=== PATIENT | female | born 1935 | race Caucasian/White ===

== ENCOUNTER → 2017-10-30 15:08 | Outpatient (CLI) | payer MEDICARE, OTHER, SELFPAY ==
[2017-10-30 18:18] LABS: Anion Gap 10 (5-15); BUN 16 mg/dL (7-18); BUN/Creat Ratio 14.5 RATIO (10-20); Calcium,Total 9.4 mg/dL (8.5-10.1); Chloride 103 mmol/L (98-107); EST Glomerular Filtration Rate 51 mL/min (>60); Est Glom Filt Rate - Afr Amer 61 mL/min (>60); Free T3 2.4 pg/mL (2.18-3.98); Glucose 152 mg/dL (70-110); Potassium 3.8 mmol/L (3.5-5.1); Sodium Level 138 mmol/L (136-145); T4 Total, Thyroxin 7.1 ug/dL (4.8-13.9)
== END ==
PROVIDERS: Family Provider Family Medicine; PCP Family Medicine; Visit Provider Family Medicine
DX: I10 Essential (primary) hypertension (principal); E03.9 Hypothyroidism, unspecified
CPT/HCPCS: 36415; 80048; 84436; 84443; 84481

== ENCOUNTER → 2018-03-02 10:35 | Outpatient (CLI) | payer MEDICARE, OTHER, SELFPAY ==
[2018-03-02 13:11] LABS: Anion Gap 7 (5-15); BUN 16 mg/dL (7-18); BUN/Creat Ratio 16.1 RATIO (10-20); Calcium,Total 9.4 mg/dL (8.5-10.1); Chloride 105 mmol/L (98-107); Cholesterol 152 mg/dL (200); Creatinine, Serum 0.99 mg/dL (0.55-1.02); EST Glomerular Filtration Rate 57 mL/min (>60); Est Glom Filt Rate - Afr Amer 69 mL/min (>60); Glucose 128 mg/dL (74-106); High Density Lipoprotein 49 mg/dL; Sodium Level 137 mmol/L (136-145); Thyroid Stim Hormone (TSH) 1.56 uIU/mL (0.358-3.74); Triglycerides 195 mg/dL; Very Low Density Lipoprotein 39 mg/dL (5-40)
== END ==
PROVIDERS: Family Provider Family Medicine; PCP Family Medicine; Visit Provider Family Medicine
DX: I10 Essential (primary) hypertension (principal); E03.9 Hypothyroidism, unspecified
CPT/HCPCS: 36415; 80048; 80061; 84443

== ENCOUNTER → 2018-06-26 11:59 | Outpatient (CLI) | payer MEDICARE, OTHER, SELFPAY ==
[2018-06-26 15:21] LABS: International Normalized Ratio 1.8; Prothrombin Time (Protime)PT. 20.7 SECONDS (11.7-14.9)
== END ==
PROVIDERS: Family Provider Family Medicine; PCP Family Medicine; Referring Provider Internal Medicine Cardiovascular Disease; Visit Provider Family Medicine
DX: I48.91 Unspecified atrial fibrillation (principal)
CPT/HCPCS: 36415; 85610

== ENCOUNTER → 2019-07-24 12:55 | Outpatient (CLI) | payer MEDICARE, OTHER, SELFPAY ==
[2019-06-27 08:04] VITALS: BMI 27.3
--- NOTE | 2019-07-24 12:56 | ECHOCS_ITS ---
Version 2 Reason For Study: AFIB Procedure This was a 2D Doppler, Color Flow transthoracic echocardiogram. The study was technically difficult. Contrast injection was performed. Exam performed in department. Left Ventricle Normal LV size. Mild concentric left ventricular hypertrophy. Left ventricular systolic function is normal. The estimated ejection fraction is 65 %. No regional wall motion abnormalities noted. Right Ventricle Normal RV size. Normal systolic function. Atria Normal left atrium. Normal right atrium. Patent foramen ovale. Mitral Valve Normal mitral valve. Tricuspid Valve Normal tricuspid valve. Aortic Valve The aortic valve is not well visualized. Pulmonic Valve Normal pulmonic valve. Great Vessels Normal aortic root. The pulmonary artery is normal size. Normal inferior vena cava. Pericardium/Pleural No pericardial effusion. Medication 22 gauge I.V. with prn adaptor inserted into right arm. Diluted definity 3.0ml given slow IV push to enhance endocardial definition. Performed a rapid injection of agitated mix of 9 cc saline and 1cc air to assess for atrial septal defect. MMode/2D Measurements & Calculations LVIDd: 3.0 cm IVSd: 1.3 cm Ao root diam: 3.3 cm LVIDs: 2.0 cm LVPWd: 1.2 cm RVDd: 2.8 cm FS: 34.2 % LAV(MOD-bp): 38.6 ml LA A4 area: 16.5 cm2 LA dimension(2D): 3.3 cm LAV(MOD-bp) Indexed: 22.0 ml/m2 LAV(MOD-sp2): 31.6 ml LAV(MOD-sp4): 41.8 ml RA A4 area: 15.1 cm2 Time Measurements MV dec time: 0.19 sec Doppler Measurements & Calculations MV E max jaspal: 52.4 cm/sec Lat Peak E' Jaspal: 5.0 cm/sec Med Peak E' Jaspal: 6.5 cm/sec MV A max jaspal: 100.4 cm/sec E/E' lat: 10.4 E/E' med: 8.0 MV E/A: 0.52 Ao V2 max: 119.4 cm/sec LV V1 max: 112.2 cm/sec PA V2 max: 102.2 cm/sec Ao max P.7 mmHg LV V1 max P.0 mmHg TR max jaspal: 261.1 cm/sec TR max P.3 mmHg Interpretation Summary Normal LV size. Mild concentric left ventricular hypertrophy. Left ventricular systolic function is normal. The estimated ejection fraction is 65 %. Patent foramen ovale. Contrast injection was performed. Structurally normal valves. Ordering Physician: Augustin Watkins Referring Physician: AMANDA PARRISH Performed By: Kathy Vail, MIRACLE, RVT
== END ==
PROVIDERS: Family Provider Family Medicine; PCP Family Medicine; Referring Provider Internal Medicine Cardiovascular Disease; Visit Provider Internal Medicine Cardiovascular Disease
DX: I48.0 Paroxysmal atrial fibrillation (principal); I10 Essential (primary) hypertension
CPT/HCPCS: 93306; Q9957; A4216; C8929

== ENCOUNTER → 2019-10-14 14:14 | Outpatient (CLI) | payer MEDICARE, OTHER, SELFPAY ==
[2019-06-27 08:04] VITALS: BMI 27.3
[2019-10-14 16:03] LABS: Anion Gap 7 (5-15); BUN 11 mg/dL (7-18); BUN/Creat Ratio 11.3 RATIO (10-20); Calcium,Total 9.6 mg/dL (8.5-10.1); Chloride 102 mmol/L (98-107); Cholesterol 159 mg/dL (200); Creatinine, Serum 0.97 mg/dL (0.55-1.02); EST Glomerular Filtration Rate 58 mL/min (>60); Est Glom Filt Rate - Afr Amer 70 mL/min (>60); Glucose 108 mg/dL (74-106); High Density Lipoprotein 50 mg/dL; Potassium 4.3 mmol/L (3.5-5.1); Sodium Level 135 mmol/L (136-145); Thyroid Stim Hormone (TSH) 3.38 uIU/mL (0.358-3.74); Triglycerides 168 mg/dL; Very Low Density Lipoprotein 34 mg/dL (5-40)
== END ==
PROVIDERS: Family Provider Family Medicine; PCP Family Medicine; Referring Provider Family Medicine; Visit Provider Family Medicine
DX: E03.9 Hypothyroidism, unspecified (principal); I10 Essential (primary) hypertension
CPT/HCPCS: 36415; 80048; 80061; 84443

== ENCOUNTER 2020-11-13 14:35 | Outpatient (RCR) | payer MEDICARE, OTHER, SELFPAY ==
[2019-06-27 08:04] VITALS: BMI 27.3
== END 2020-11-13 23:59 ==
LOC: IMMUN 14:35
PROVIDERS: PCP Family Medicine; Referring Provider Family Medicine; Visit Provider Family Medicine
DX: Z23 Encounter for immunization (principal)
CPT/HCPCS: 0011A; 0012A

== ENCOUNTER 2021-09-25 14:05 | Emergency (ER) | payer MEDICARE, OTHER, SELFPAY ==
[2021-09-25 14:06] VITALS: BP 150/65; PULSE 69; RESP 15; TEMP 36; O2SAT 97; BMI 25.9
--- NOTE | 2021-09-25 14:43 | EKG12_ITS ---
Test Reason : GENERAL Blood Pressure : / mmHG Vent. Rate : 072 BPM Atrial Rate : 072 BPM P-R Int : 156 ms QRS Dur : 096 ms QT Int : 384 ms P-R-T Axes : 036 003 110 degrees QTc Int : 420 ms Normal sinus rhythm ST & T wave abnormality, consider lateral ischemia Abnormal ECG When compared with ECG of 17-OCT-2011 05:12, T wave inversion now evident in Lateral leads Confirmed by JESENIA ALEXIS, MARIETTA ([id number]), manager editorial ANTONIETTA SCHULZ ([id number]) on 09/28/2021 1:41:53 PM Referred By: EFRAÍN Confirmed By:MARIETTA BA MD
--- NOTE | 2021-09-25 14:49 | EDS_ITS ---
HPI History of Present Illness Chief Complaint: General Illness Informant: patient Narrative Narrative: Patient is an 86-year-old female with history of hypothyroid, hypertension, proximal atrial fibrillation and dementia presenting after an episode of vomiting and near syncope. I spoke with her daughter, [place] was with her what happened. They were sitting down to eat. Patient 's niece reports that she was feeling hot right before she sat down to eat. The niece offered her some water and patient ate majority of her meal. Patient then threw up multiple times no. No report of any black or blood in the vomit. Patient also became limp and had a transient loss of consciousness at the table. Patient did not fall to the ground. No report of any head injury. EMS was called patient was brought to the emergency room. Patient reports that she did not like what she was eating and then threw up but states she feels better now. Patient is a poor historian. She does not recall what she actually ate. Niece does state that a similar episode happened a couple months ago when the patient was visiting her in a senior living. She felt better shortly after and ate and went about her day. [facility] Medical History (Updated 09/25/21 @ 19:[address] Sasha Carbone, DO) Essential (primary) hypertension Fatigue Hyperlipidemia Hypothyroidism Paroxysmal atrial fibrillation Home Medications atorvastatin 10 mg tablet 10 mg PO QDAY 30 Days #30 tab 10/06/17 [History Last Taken Unknown] donepezil 10 mg tablet 10 mg PO DAILY 30 Days #30 10/06/17 [History Last Taken Unknown] imipramine HCl 25 mg tablet 25 mg PO QHS 30 Days #30 tab 10/06/17 [History Last Taken Unknown] levothyroxine 25 mcg tablet 25 mcg PO QDAY 30 Days #30 tab 10/06/17 [History Last Taken Unknown] losartan 100 mg tablet 100 mg PO QDAY 30 Days #30 tab 10/06/17 [History Last Taken Unknown] metoprolol succinate 25 mg tablet,extended release 24 hr 25 mg PO QDAY 30 Days #30 tab 10/06/17 [History Last Taken Unknown] cholecalciferol (vitamin D3) 125 mcg (5,000 unit) capsule 5,000 unit PO .2xweek cap 06/27/19 [History Last Taken Unknown] apixaban 5 mg tablet 2.5 mg PO BID #0 tab 01/14/20 [Rx Last Taken Unknown] Mirtazapine 45 mg PO DAILY 12/04/20 [History Last Taken Unknown] Norvasc 2.5 mg PO DAILY 12/04/20 [History Last Taken Unknown] Allergy/AdvReac Type Severity Reaction Status Date / Time No Known Allergies Allergy Verified 09/25/21 14:09 Family History Brother CAD (coronary artery disease) Myocardial infarction in his 40s Mother Dementia Surgical History History of hysterectomy Social History Smoking Status: Never smoker alcohol intake: never substance use type: does not use caffeine: Yes Type: tea what type of physical activity do you participate in: none seatbelt use: always do you feel safe at home: Yes ROS ROS ED Constitutional Constitutional ED: Reports sweats and other Details: lightheaded ; Denies c hills or fever(s) Eyes Eyes: Denies change in vision ENT ENT ED: Denies ear pain Cardiovascular Cardiovascular: Denies chest pain or palpitations Respiratory/Chest Respiratory/Chest: Denies cough or dyspnea Gastrointestinal Gastrointestinal: Reports vomiting; Denies abdominal pain Genitourinary Genitourinary ED: Denies dysuria or hematuria Musculoskeletal Musculoskeletal: Denies arthralgias or myalgias Integumentary Denies rash Neurologic Neurologic: Denies headache(s), paresthesias or weakness Psychiatric Psychiatric: Denies depression EXAM Physical Exam Const Vital Signs: 09/25/21 14:06 09/25/21 17:08 09/25/21 17:09 Temperature 96.8 F L Temperature Source Temporal Pulse Rate 69 89 Respiratory Rate 15 18 Respiratory Pattern Normal Blood Pressure 150/65 H Blood Pressure Mean 93 Pulse Ox 97 99 Oxygen Delivery Method Room Air Room Air 09/25/21 19:37 Temperature Temperature Source Pulse Rate 69 Respiratory Rate 15 Respiratory Pattern Blood Pressure 138/74 H Blood Pressure Mean Pulse Ox 95 Oxygen Delivery Method Positive well nourished and well developed General Appearance ED: well developed HEENT Reports TM's clear and moist mucous membranes Negative for trauma Tympanic Membrane ED: Yes TM's clear Eyes PERRL and EOMs intact bilaterally Neck supple and no JVD General: Negative for tenderness Chest Wall inspection of chest normal Resp normal respiratory effort and clear to auscultation bilaterally Cardio regular rate, regular rhythm and no murmurs GI normal to inspection, nondistended, normoactive bowel sounds and non-tender Palpation: soft Extremity normal to inspection General Extremety ED: Negative for edema or tenderness General Extremity: Negative for edema Neuro no sensory deficits noted Sensorium / Orientation: alert Motor Exam: Negative for general weakness Psych mental status grossly normal Skin no rashes or lesions noted and no wounds MDM MDM MDM Narrative Medical decision making narrative: Patient evaluated after an episode of vomiting and what sounds like syncope versus near syncope. Patient currently is asymptomatic. She is hemodynamically stable. She has no further nausea and vomiting. She is able to drink in the emergency room without difficulty. Work- up including CBC, CMP, high-sensitivity opponent x2 and urinalysis largely n egative. Head CT obtained which did not show an acute process. Patient's abdomen is soft and nontender. I do not think a CT is indicated at this time. Patient is monitored in the ER for couple hours and continues to be asymptomatic. I am not sure what caused this episode earlier today however I do think she is stable for outpatient follow-up. No signs of ACS or more severe disease process at this time. No focal neurologic deficits to make me suspect a stroke as a cause her symptoms. This does not sound like seizure activity. Case is discussed with her son as well as her granddaughter. Lab Data Attestation: I reviewed the patient's lab results. Labs: Laboratory Results - last 24 hr 09/25/21 09/25/21 09/25/21 14:50 14:50 17:48 WBC 8.1 RBC 4.98 Hgb 14.0 Hct 41.7 MCV 83.7 MCH 28.1 MCHC 33.6 RDW Std Deviation 40.1 RDW Coeff of Rony 13.2 Plt Count 204 MPV 9.3 Immature Gran % (Auto) 0.600 Neut % (Auto) 70.9 H Lymph % (Auto) 23.3 [place] % (Auto) 3.8 Eos % (Auto) 1.0 Baso % (Auto) 0.4 Absolute Neuts (auto) 5.8 Absolute Lymphs (auto) 1.90 Nucleated RBC % 0 Sodium 139 Potassium 3.5 Chloride 105 Carbon Dioxide 27.0 Anion Gap 7 BUN 12 Creatinine 1.07 H Estim Creat Clear Calc 33.80 Est GFR (MDRD) Af Amer 63 Est GFR (MDRD) Non-Af 52 L BUN/Creatinine Ratio 11.2 Glucose 161 H Calcium 9.6 Total Bilirubin 0.40 AST 12 L ALT 19 Alkaline Phosphatase 104 Troponin I High Sens 6 7 Total Protein 6.7 Albumin 3.2 Globulin 3.5 Albumin/Globulin Ratio 0.9 Lipase 74 Urine Color Urine Clarity Urine pH Ur Specific [place] Urine Protein Urine Glucose (UA) Urine Ketones Urine Occult Blood Urine Nitrite Urine Bilirubin Urine Urobilinogen Ur Leukocyte Esterase Urine RBC Urine WBC Ur Squamous Epith Cells Urine Bacteria Urine Mucus 09/25/21 18:34 WBC RBC Hgb Hct MCV MCH MCHC RDW Std Deviation RDW Coeff of Rony Plt Count MPV Immature Gran % (Auto) Neut % (Auto) Lymph % (Auto) [place] % (Auto) Eos % (Auto) Baso % (Auto) Absolute Neuts (auto) Absolute Lymphs (auto) Nucleated RBC % Sodium Potassium Chloride Carbon Dioxide Anion Gap BUN Creatinine Estim Creat Clear Calc Est GFR (MDRD) Af Amer Est GFR (MDRD) Non-Af BUN/Creatinine Ratio Glucose Calcium Total Bilirubin AST ALT Alkaline Phosphatase Troponin I High Sens Total Protein Albumin Globulin Albumin/Globulin Ratio Lipase Urine Color Yellow Urine Clarity Clear Urine pH 7.0 Ur Specific [place] 1.010 Urine Protein 15 H Urine Glucose (UA) 50 H Urine Ketones Negative Urine Occult Blood 10 H Urine Nitrite Negative Urine Bilirubin Negative Urine Urobilinogen Normal Ur Leukocyte Esterase Negative Urine RBC 0 SEEN Urine WBC 0 SEEN Ur Squamous Epith Cells 0 SEEN Urine Bacteria 0 SEEN Urine Mucus 0 SEEN Radiography Diagnostic Testing: Clinical Impression(s) from Imaging Studies Brain CT 09/25/21 14:56 IMPRESSION: Chronic involutional changes of the brain. Electronically Signed: Kendal Ellison MD at 15:37 EST Tel , Service support , Rhythm Strip Rhythm Strip: Sinus Rhythm Rate: 72 Ectopy: None EKG Initial EKG: Attestation: I personally reviewed and interpreted this EKG as follows: Interpretation: Sinus Rhythm Comments: Normal sinus rhythm at a rate of 72 Normal axis Normal intervals T wave inversion in 1, aVL and V5 No reciprocal changes Discharge Plan Triage Chief Complaint: General Illness ED Provider: Sasha Carbone Dx/Rx/DC Orders Clinical Impression: Vomiting, Near syncope Instructions: ED Fainting, Uncertain Cause, ED Vomiting (Adult) Prescriptions: No Action levothyroxine 25 mcg tablet 25 mcg PO QDAY 30 Days Qty: 30 RF: 0 losartan 100 mg tablet 100 mg PO QDAY 30 Days Qty: 30 RF: 0 metoprolol succinate 25 mg tablet extended release 24 hr 25 mg PO QDAY 30 Days Qty: 30 RF: 0 atorvastatin 10 mg tablet 10 mg PO QDAY 30 Days Qty: 30 RF: 0 imipramine HCl 25 mg tablet 25 mg PO QHS 30 Days Qty: 30 RF: 0 donepezil 10 mg tablet 10 mg PO DAILY 30 Days Qty: 30 RF: 0 cholecalciferol (vitamin D3) 5,000 unit capsule 5,000 unit PO .2xweek RF: 0 Mirtazapine 45 mg PO DAILY RF: 0 Norvasc 2.5 mg PO DAILY RF: 0 Eliquis 5 mg tablet 2.5 mg PO BID Qty: 0 RF: 0 Primary Care Provider: Rom Burns Referrals: Rom Burns MD [Primary Care Provider] - Activity Restrictions/Additional Instructions: Your work-up today including blood work, head CT and EKG were all normal. There is no signs of any type of infection. I am not sure what caused this episode today but I do think you are safe to go home. Disposition Disposition: Home, Self Care Discharge Date/Time: 09/25/21 19:56
--- NOTE | 2021-09-25 14:56 | CT_ITS ---
STUDY: CT BRAIN WITHOUT CONTRAST REASON FOR EXAM: Female, 86 years old. syncope, AMS RADIATION DOSAGE (If Supplied By Facility): CTDIvol = ( 44.99 ) mGy, DLP = ( ) mGycm TECHNIQUE: Transaxial CT imaging of the brain was performed without administration of intravenous contrast material. Individualized dose optimization techniques were used for this CT. COMPARISON: None. FINDINGS: There is cerebral atrophy with widening of the extra-axial spaces and ventricular dilatation. There are areas of decreased attenuation within the white matter tracts of the supratentorial brain, consistent with microvascular disease changes. There is no intracranial hemorrhage. There are no findings of an acute ischemic infarction. Normal soft tissue structures. Normal visualized paranasal sinuses. CT/Brain/Head without Contrast IMPRESSION: Chronic involutional changes of the brain. Electronically Signed: Kendal Ellison MD at 15:37 EST Tel , Service support ,
[2021-09-25 15:00] LABS: Absolute Neutrophil Count 5.8 X10^3/uL (2.0-7.7); Basophil# 0.03 X10^3/uL; Basophil% 0.4 % (0-1); Eosinophil# 0.08 X10^3/uL; Hematocrit 41.7 % (37-47); Lymphocyte % 23.3 % (19-41); Mean Corp Hgb Conc 33.6 g/dL (32-36); Mean Corpuscular Hgb 28.1 pg (27.0-32.0); Mean Corpuscular Volume 83.7 fL (81-99); Mean Platelet Vol. 9.3 fl (6.2-12.0); Monocyte# 0.31 X10^3/uL; Monocyte% 3.8 % (0-10); NRBC Flagged by Analyzer 0 % (0-5); Neutrophil # 5.77 X10^3/uL (2.7-7.7); Neutrophil % 70.9 % (47-70); Platelet Count 204 K/mm3 (150-450); RBC Distribution Width CV 13.2 % (11.6-14.6); RBC Distribution Width SD 40.1 fl (35.1-43.9); Red Blood Count 4.98 M/mm3 (4.2-5.4); White Blood Count 8.1 K/mm3 (4.4-11.0)
[2021-09-25 15:13] LABS: ALB/GLOB Ratio 0.9 RATIO (0.9-2.4); AST(SGOT) 12 U/L (15-37); Alanine Aminotransfer ALT/SGPT 19 U/L (13-56); Albumin, Serum 3.2 g/dL (3.2-5.0); Alkaline Phosphatase 104 U/L (45-117); Anion Gap 7 (5-15); BUN 12 mg/dL (7-18); BUN/Creat Ratio 11.2 RATIO (10-20); Calcium,Total 9.6 mg/dL (8.5-10.1); Chloride 105 mmol/L (98-107); Creatinine, Serum 1.07 mg/dL (0.55-1.02); EST Glomerular Filtration Rate 52 mL/min (>60); Est Glom Filt Rate - Afr Amer 63 mL/min (>60); Globulin 3.5 g/dL (2.2-4.2); Glucose 161 mg/dL (74-106); Lipase 74 U/L (73-393); Potassium 3.5 mmol/L (3.5-5.1); Protein, Total 6.7 g/dL (6.4-8.2); Sodium Level 139 mmol/L (136-145); Troponin-I HS 6 pg/mL (3.0-54.0)
[2021-09-25 17:08] VITALS: PULSE 89; RESP 18; O2SAT 99
--- NOTE | 2021-09-25 17:49 | ED.RN ---
. Kenya would like to be called if patient needs a ride home.
[2021-09-25 18:30] LABS: Troponin-I HS 7 pg/mL (3.0-54.0)
[2021-09-25 18:42] LABS: Bacteria 0 SEEN /hpf (None Seen); Mucous, Urine 0 SEEN /hpf (<or=2+); Red Blood Cells-Urine 0 SEEN /hpf (0-5); Squamous Epithelial Cells - UA 0 SEEN /hpf (5-10); White Blood Cells 0 SEEN /hpf (0-5)
[2021-09-25 18:44] LABS: Color, Urine Yellow (Yellow); Glucose, Dipstick 50 mg/dl (Normal); Ketone-Dipstick Negative (Negative); Leukocyte Esterase-Dipstick Negative /ul (Negative); Nitrite-Dipstick Negative (Negative); Occult Blood-Urine 10 /ul (Negative); Protein-Dipstick 15 mg/dl (Negative); Urine Bilirubin Dipstick Negative (Negative); Urine Clarity Clear (Clear); Urine Urobilinogen Normal (Normal)
--- NOTE | 2021-09-25 19:30 | ED.RN ---
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 Kenya has been informed about Vasavagal manuvers. [place] states she will be here in 30 minutes
[2021-09-25 19:37] VITALS: BP 138/74; PULSE 69; RESP 15; O2SAT 95
== END 2021-09-25 19:56 | disposition home or self-care (01) ==
PROVIDERS: Emergency Provider Emergency Medicine; PCP Family Medicine
DX: R55 Syncope and collapse (principal); R11.2 Nausea with vomiting, unspecified; I10 Essential (primary) hypertension; E03.9 Hypothyroidism, unspecified; E78.5 Hyperlipidemia, unspecified; I48.0 Paroxysmal atrial fibrillation; F03.90 Unspecified dementia, unspecified severity, without behavioral disturbance, psychotic disturbance, mood disturbance, and anxiety; Z79.01 Long term (current) use of anticoagulants; Z79.899 Other long term (current) drug therapy
CPT/HCPCS: 70450; 80053; 81001; 83690; 84484; 85025; 93005; 99285; J7040; A4216

== ENCOUNTER 2021-10-01 21:46 | Inpatient (IN) | payer MEDICARE, OTHER, SELFPAY ==
[2021-10-01 21:47] VITALS: BP 146/59; PULSE 79; RESP 14; TEMP 37.9; O2SAT 88; BMI 24.2
[2021-10-01 21:55] VITALS: RESP 17; O2SAT 93
--- NOTE | 2021-10-01 22:07 | RAD_ITS ---
HISTORY: fall EXAMINATION/TECHNIQUE: XR Knee 1 or 2 Views: AP and lateral views left knee COMPARISON: None FINDINGS: SOFT TISSUES: No significant soft tissue swelling. Vascular calcifications noted. BONES/JOINTS: No acute fracture or subluxation. Normal alignment. Preservation of the joint spaces. No suspicious osseous lesion. RAD/Knee 1 or 2 Views IMPRESSION: Negative left knee. at 0004 Reported and signed by: Edmund Porras MD Electronically Signed: Edmund Porras MD at 0:03 EST Tel , Service support ,
--- NOTE | 2021-10-01 22:07 | EKG12_ITS ---
Test Reason : FALL Blood Pressure : / mmHG Vent. Rate : 079 BPM Atrial Rate : 079 BPM P-R Int : 148 ms QRS Dur : 080 ms QT Int : 356 ms P-R-T Axes : 046 012 127 degrees QTc Int : 408 ms Normal sinus rhythm ST & T wave abnormality, consider lateral ischemia Abnormal ECG Confirmed by TAMY ALEXIS, AMANDA ([id number]), supervising film or videotape editor JESSICA JJ ([id number]) on 10/06/2021 9:59:08 AM Referred By: ALEXANDRE Confirmed By:AMANDA MORELOS MD
--- NOTE | 2021-10-01 22:07 | CT_ITS ---
HISTORY: fall TECHNIQUE: Helically acquired images were obtained of the cervical spine. 2-D reformatted images were reviewed. A radiation dose optimization technique was used for the scan. # of images incl. paperwork: [id number]. IV contrast dosage and agent: None. COMPARISON: Concurrent head CT. FINDINGS: No acute fracture, traumatic subluxation or prevertebral soft tissue swelling. Mild chronic-appearing grade 1 anterolisthesis of C7 over T1. Mild chronic T2 superior endplate compression deformity. Multilevel degenerative disc space narrowing and endplate osteophytes and facet arthropathy. Secondary [id number] spinal canal stenosis with bilateral neural foraminal stenosis of varying severity. No acute findings within the imaged lung apices. Ovoid, slightly decreased attenuation 2.3 cm masslike structure along lateral margin left lobe of thyroid gland. Smaller 9 mm low-attenuation lesion and separate punctate calcification within right lobe of thyroid gland. CT/Spine Cervical without Contras IMPRESSION: 1. Cervical spondylosis with no evidence of acute osseous injury. 2. Thyroid mass and nodule. Recommend nonemergent follow-up thyroid ultrasound if no previous workup performed. Individualized dose optimization techniques were used for this CT. at 2345 Reported and signed by: Edmund Porras MD Electronically Signed: Edmund Porras MD at 23:44 EST Tel , Service support ,
--- NOTE | 2021-10-01 22:07 | RAD_ITS ---
HISTORY: fall EXAMINATION/TECHNIQUE: XR Hip Unilateral with Pelvis when performed; 2-3 Views: AP view pelvis with AP and lateral views of the left hip COMPARISON: None FINDINGS: PELVIC BONES: No displaced fracture or suspicious osseous lesion demonstrated. Note that overlapping bowel shadows may however obscure fine detail. Sacroiliac joints are unremarkable. No widening of the pubic symphisis. HIPS: Transcervical left femoral neck fracture with slight cephalad migration of the distal fracture fragment. Normal alignment of left femoral head within the acetabular fossa. Bilateral hip joint spaces are preserved. Intact right hip. SOFT TISSUES: Vascular calcifications noted. RAD/HIP, UNI W/ Pelvis 2-3 Views IMPRESSION: Partially displaced left femoral neck fracture. at 0007 Reported and signed by: Edmund Porras MD Electronically Signed: Edmund Porras MD at 0:06 EST Tel , Service support ,
--- NOTE | 2021-10-01 22:07 | CT_ITS ---
HISTORY: injury EXAMINATION: CT Head or Brain W/O Contrast Injection TECHNIQUE: Multiple axial images were obtained of the brain without intravenous contrast. A radiation dose optimization technique was used for this scan. IV Contrast dosage and agent: None. COMPARISON: Head CT from 09/25/21 FINDINGS: BRAIN PARENCHYMA: No intra- or extra-axial hemorrhage. No evidence of acute major territorial infarct. No intracranial mass effect or midline shift. There is mild, chronic hypoattenuation of the deep cerebral white matter. Chronic cerebral involutional changes are also noted. CSF SPACES: Stable small 5 mm dural based crescentic focus of increased attenuation within superolateral right posterior fossa (series 2 axial image 13), likely representing small meningioma. Prominent cerebral sulci secondary to involutional changes. No hydrocephalus. Basal cisterns are patent. CALVARIUM, SKULL BASE, PARANASAL SINUSES AND MASTOID AIR CELLS: Left supraorbital scalp swelling. Intact calvarium. Mild sinus mucosal thickening. Mastoid air cells are well pneumatized. ORBITS: No acute findings. CT/Brain/Head without Contrast IMPRESSION: Left supraorbital scalp swelling with no calvarial fracture or acute intracranial abnormality. Chronic involutional and white matter changes. Stable appearance of probable small meningioma within superolateral right posterior fossa. Individualized dose optimization techniques were used for this CT. at 2341 Reported and signed by: Edmund Porras MD Electronically Signed: Edmund Porras MD at 23:40 EST Tel , Service support ,
--- NOTE | 2021-10-01 22:10 | EDS_ITS ---
HPI History of Present Illness Chief Complaint: Fall Informant: patient Narrative Narrative: Patient brought in by EMS after reported unwitnessed fall. Patient reportedly has a history of dementia and is not able to provide much history. She denies complaint at this time. She tells me she lives with her grandson. It is noted that she was seen here last weekend after a syncopal episode. Work- up at that time was unremarkable. Nurse spoke with the patient's granddaughter on the phone. Patient lives with her granddaughter. Granddaughter will not be coming up to the hospital because she tested positive for Covid today. Granddaughter was downstairs and heard a boom. She went upstairs to find her grandmother laying on her left side on the floor. She states that the hematoma on the forehead is from a syncopal episode with fall on . Patient did reportedly have both doses of her Covid vaccine. [facility] Medical History (Updated 10/02/21 @ 00:[address] Lanny Ricks MD) Dementia Essential (primary) hypertension Fatigue Hyperlipidemia Hypothyroidism Paroxysmal atrial fibrillation Home Medications atorvastatin 10 mg tablet 10 mg PO QDAY 30 Days #30 tab 10/06/17 [History Last Taken Unknown] donepezil 10 mg tablet 10 mg PO DAILY 30 Days #30 10/06/17 [History Last Taken Unknown] imipramine HCl 25 mg tablet 25 mg PO QHS 30 Days #30 tab 10/06/17 [History Last Taken Unknown] levothyroxine 25 mcg tablet 25 mcg PO QDAY 30 Days #30 tab 10/06/17 [History Last Taken Unknown] losartan 100 mg tablet 100 mg PO QDAY 30 Days #30 tab 10/06/17 [History Last Taken Unknown] metoprolol succinate 25 mg tablet,extended release 24 hr 25 mg PO QDAY 30 Days #30 tab 10/06/17 [History Last Taken Unknown] cholecalciferol (vitamin D3) 125 mcg (5,000 unit) capsule 5,000 unit PO .2xweek cap 06/27/19 [History Last Taken Unknown] apixaban 5 mg tablet 2.5 mg PO BID #0 tab 01/14/20 [Rx Last Taken Unknown] Mirtazapine 45 mg PO DAILY 12/04/20 [History Last Taken Unknown] amlodipine 5 mg PO/SL DAILY 10/01/21 [History Last Taken Unknown] Allergy/AdvReac Type Severity Reaction Status Date / Time No Known Allergies Allergy Verified 09/25/21 14:09 Family History Brother CAD (coronary artery disease) Myocardial infarction in his 40s Mother Dementia Surgical History History of hysterectomy Social History Smoking Status: Never smoker alcohol intake: never substance use type: does not use caffeine: Yes Type: tea what type of physical activity do you participate in: none seatbelt use: always do you feel safe at home: Yes ROS ROS ED Constitutional Constitutional ED: Denies chills or fever(s) Eyes Eyes: Denies change in vision ENT ENT ED: Denies sore throat Cardiovascular Cardiovascular: Denies chest pain or palpitations Respiratory/Chest Respiratory/Chest: Denies cough or dyspnea Gastrointestinal Gastrointestinal: Denies abdominal pain, nausea or vomiting Genitourinary Genitourinary ED: Denies dysuria Musculoskeletal Musculoskeletal: Reports arthralgias; Denies neck pain Neurologic Neurologic: Reports weakness Allergic/Immunologic Allergic/Immunologic ED: Denies urticaria EXAM Physical Exam Const Vital Signs: 10/01/21 21:47 10/01/21 21:55 10/01/21 22:01 Temperature 100.2 F H Temperature Source Oral Pulse Rate 79 Respiratory Rate 14 17 Respiratory Effort Normal Respiratory Depth Normal Respiratory Pattern Normal Blood Pressure 146/59 H Blood Pressure Mean 88 Pulse Ox 88 93 Oxygen Delivery Method Room Air Nasal Cannula Oxygen Flow Rate (L/min) 2 10/01/21 23:48 Temperature Temperature Source Pulse Rate 76 Respiratory Rate 18 Respiratory Effort Respiratory Depth Respiratory Pattern Blood Pressure 141/58 H Blood Pressure Mean 85 Pulse Ox 97 Oxygen Delivery Method Nasal Cannula Oxygen Flow Rate (L/min) 2 Positive well nourished and well developed General Appearance ED: well developed HEENT Reports moist mucous membranes HEENT Narrative: Hematoma left forehead Eyes Eyes Narrative: Mild green eye discharge noted dried in her lashes. Neck supple Chest Wall inspection of chest normal and palpation of chest normal Resp normal respiratory effort and clear to auscultation bilaterally Cardio regular rate and regular rhythm GI non-tender Palpation: soft Extremity normal to inspection Extremity Narrative: Mild tenderness to the left knee. No significant edema or deformity. Neuro Neuro Narrative: No focal neurologic deficits. Follows commands. Sensorium / Orientation: alert Skin Skin Narrative: Forehead hematoma as noted above. MDM MDM MDM Narrative Medical decision making narrative: Patient was running a temperature of 100.2 and her O2 sat was 88% on room air. She is currently on 2 L nasal cannula. Rapid Covid test, chest x-ray, lab work, urinalysis obtained. CT scan of the brain and C-spine obtained. Pelvis x-ray left knee x-ray obtained. Lab Data Attestation: I reviewed the patient's lab results. Labs: Laboratory Results - last 24 hr 10/01/21 10/01/21 10/01/21 22:31 22:31 22:31 WBC 15.8 H RBC 4.73 Hgb 13.2 Hct 40.0 MCV 84.6 MCH 27.9 MCHC 33.0 RDW Std Deviation 40.3 RDW Coeff of Rony 13.1 Plt Count 245 MPV 9.9 Immature Gran % (Auto) 0.800 Neut % (Auto) 85.0 H Lymph % (Auto) 7.8 L [place] % (Auto) 6.1 Eos % (Auto) 0.0 Baso % (Auto) 0.3 Absolute Neuts (auto) 13.5 H Absolute Lymphs (auto) 1.24 Nucleated RBC % 0 PT 17.3 H INR 1.5 APTT 37.8 H Sodium 135 L Potassium 3.5 Chloride 100 Carbon Dioxide 26.0 Anion Gap 9 BUN 20 H Creatinine 1.28 H Estim Creat Clear Calc 28.25 Est GFR (MDRD) Af Amer 51 L Est GFR (MDRD) Non-Af 42 L BUN/Creatinine Ratio 15.6 Glucose 132 H Calcium 9.9 Urine Color Urine Clarity Urine pH Ur Specific [place] Urine Protein Urine Glucose (UA) Urine Ketones Urine Occult Blood Urine Nitrite Urine Bilirubin Urine Urobilinogen Ur Leukocyte Esterase Urine RBC Urine WBC Ur Squamous Epith Cells Urine Bacteria Urine Mucus 10/01/21 22:53 WBC RBC Hgb Hct MCV MCH MCHC RDW Std Deviation RDW Coeff of Rony Plt Count MPV Immature Gran % (Auto) Neut % (Auto) Lymph % (Auto) [place] % (Auto) Eos % (Auto) Baso % (Auto) Absolute Neuts (auto) Absolute Lymphs (auto) Nucleated RBC % PT INR APTT Sodium Potassium Chloride Carbon Dioxide Anion Gap BUN Creatinine Estim Creat Clear Calc Est GFR (MDRD) Af Amer Est GFR (MDRD) Non-Af BUN/Creatinine Ratio Glucose Calcium Urine Color Yellow Urine Clarity Sl Cldy Urine pH 6.5 Ur Specific [place] 1.015 Urine Protein 30 H Urine Glucose (UA) Normal Urine Ketones Negative Urine Occult Blood 150 H Urine Nitrite Negative Urine Bilirubin Negative Urine Urobilinogen 1 H Ur Leukocyte Esterase 25 H Urine RBC 0 SEEN Urine WBC 5-10 SEEN Ur Squamous Epith Cells 0 SEEN Urine Bacteria 3+ Urine Mucus 0 SEEN Radiography Chest X-Ray - ED: 1 View, Read by ED Physician and Chronic Changes Diagnostic Testing: Clinical Impression(s) from Imaging Studies Brain CT 10/01/21 22:07 IMPRESSION: Left supraorbital scalp swelling with no calvarial fracture or acute intracranial abnormality. Chronic involutional and white matter changes. Stable appearance of probable small meningioma within superolateral right posterior fossa. Individualized dose optimization techniques were used for this CT. at 2341 Reported and signed by: Edmund Porras MD Electronically Signed: Edmund Porras MD at 23:40 EST Tel , Service support , Cervical Spine CT 10/01/21 22:07 IMPRESSION: 1. Cervical spondylosis with no evidence of acute osseous injury. 2. Thyroid mass and nodule. Recommend nonemergent follow-up thyroid ultrasound if no previous workup performed. Individualized dose optimization techniques were used for this CT. at 2345 Reported and signed by: Edmund Porras MD Electronically Signed: Edmund Porras MD at 23:44 EST Tel , Service support , Hip/Pelvis X-Ray 10/01/21 22:07 IMPRESSION: Partially displaced left femoral neck fracture. at 0007 Reported and signed by: Edmund Porras MD Electronically Signed: Edmund Porras MD at 0:06 EST Tel , Service support , Knee X-Ray 10/01/21 22:07 IMPRESSION: Negative left knee. at 0004 Reported and signed by: Edmund Porras MD Electronically Signed: Edmund Porras MD at 0:03 EST Tel , Service support , Chest X-Ray 10/01/21 23:30 IMPRESSION: No radiographic evidence of acute cardiopulmonary disease. at 0003 Reported and signed by: Edmund Porras MD Electronically Signed: Edmund Porras MD at 0:02 EST Tel , Service support , EKG Initial EKG: Attestation: I personally reviewed and interpreted this EKG as follows: Interpretation: Sinus Rhythm (Sinus at 79. Nonspecific lateral T wave flattening.) Treatment and Re-Evaluation Comments:: Chest x-ray unremarkable per my interpretation. Pelvis x-ray revealed left femoral neck fracture and therefore hip x-ray added. Knee x-ray reveals no fracture. CT scan of the head and C-spine are unremarkable. Lab work significant for an elevated white count at 15.8. Urinalysis does appear to be infected with 3+ bacteria and 5-10 white cells. Urine culture is sent and patient given a dose of IV Rocephin. Rapid Covid test is negative. Because the patient did have known exposure to Covid in her house a Covid PCR was also sent. I will speak with hospitalist as well as orthopedics for admission. Discharge Plan Triage Chief Complaint: Fall ED Provider: Lanny Ricks Dx/Rx/DC Orders Clinical Impression: Fracture of left hip, UTI (urinary tract infection) Prescriptions: No Action levothyroxine 25 mcg tablet 25 mcg PO QDAY 30 Days Qty: 30 RF: 0 losartan 100 mg tablet 100 mg PO QDAY 30 Days Qty: 30 RF: 0 metoprolol succinate 25 mg tablet extended release 24 hr 25 mg PO QDAY 30 Days Qty: 30 RF: 0 atorvastatin 10 mg tablet 10 mg PO QDAY 30 Days Qty: 30 RF: 0 imipramine HCl 25 mg tablet 25 mg PO QHS 30 Days Qty: 30 RF: 0 donepezil 10 mg tablet 10 mg PO DAILY 30 Days Qty: 30 RF: 0 cholecalciferol (vitamin D3) 5,000 unit capsule 5,000 unit PO .2xweek RF: 0 Mirtazapine 45 mg PO DAILY RF: 0 amlodipine 5 mg PO/SL DAILY RF: 0 Eliquis 5 mg tablet 2.5 mg PO BID Qty: 0 RF: 0 Primary Care Provider: Rom Burns Referrals: oRm Burns MD [Primary Care Provider] - Disposition Disposition: Acute Care Hospital [facility]
--- NOTE | 2021-10-01 22:13 | ED.RN ---
This RN called Patients granddaughter Romi [phone]. Romi lives with patient. Romi states that she was downstairs when she heard a loud boom. Romi ran upstairs and found patient lying on her left side on the floor. it did not look like she tripped over anything. There were no rugs or anything around her. patients medication list has been updated during this phone call. patient has had both vaccines but has yet to get booster. Romi tested positive for covid today. Romi has been informed to call ED if she has any further questions at this time.
[2021-10-01 22:48] LABS: Absolute Lymphocyte Count 1.24 X10^3/uL (0.83-4.51); Absolute Neutrophil Count 13.5 X10^3/uL (2.0-7.7); Basophil# 0.04 X10^3/uL; Basophil% 0.3 % (0-1); Hemoglobin 13.2 g/dL (12.0-15.0); Lymphocyte # 1.24 X10^3/ul (0.83-4.51); Lymphocyte % 7.8 % (19-41); Mean Corpuscular Hgb 27.9 pg (27.0-32.0); Mean Corpuscular Volume 84.6 fL (81-99); Mean Platelet Vol. 9.9 fl (6.2-12.0); Monocyte# 0.96 X10^3/uL; Monocyte% 6.1 % (0-10); NRBC Flagged by Analyzer 0 % (0-5); Neutrophil # 13.45 X10^3/uL (2.7-7.7); Platelet Count 245 K/mm3 (150-450); RBC Distribution Width CV 13.1 % (11.6-14.6); RBC Distribution Width SD 40.3 fl (35.1-43.9); Red Blood Count 4.73 M/mm3 (4.2-5.4); White Blood Count 15.8 K/mm3 (4.4-11.0)
[2021-10-01 22:54] LABS: International Normalized Ratio 1.5; Prothrombin Time (Protime)PT. 17.3 SECONDS (11.7-14.9)
[2021-10-01 22:55] LABS: Partial Thromboplast Time 37.8 Seconds (24.1-36.2)
[2021-10-01 23:02] LABS: Anion Gap 9 (5-15); BUN 20 mg/dL (7-18); BUN/Creat Ratio 15.6 RATIO (10-20); Calcium,Total 9.9 mg/dL (8.5-10.1); Chloride 100 mmol/L (98-107); Creatinine, Serum 1.28 mg/dL (0.55-1.02); EST Glomerular Filtration Rate 42 mL/min (>60); Est Glom Filt Rate - Afr Amer 51 mL/min (>60); Estimated Creatinine Clearance 28.25 ml/min; Glucose 132 mg/dL (74-106); Potassium 3.5 mmol/L (3.5-5.1); Sodium Level 135 mmol/L (136-145)
[2021-10-01 23:09] LABS: Mucous, Urine 0 SEEN /hpf (<or=2+); Red Blood Cells-Urine 0 SEEN /hpf (0-5); Squamous Epithelial Cells - UA 0 SEEN /hpf (5-10)
[2021-10-01 23:14] LABS: Glucose, Dipstick Normal (Normal); Ketone-Dipstick Negative (Negative); Leukocyte Esterase-Dipstick 25 /ul (Negative); Nitrite-Dipstick Negative (Negative); Occult Blood-Urine 150 /ul (Negative); Protein-Dipstick 30 mg/dl (Negative); Specific Gravity, Urine 1.015 (1.002-1.030); Urine Bilirubin Dipstick Negative (Negative); Urine Urobilinogen 1 mg/dl (Normal); Urine pH 6.5 (5.0 - 8.0)
[2021-10-01 23:23] LABS: Bacteria 3+ /hpf (None Seen); Color, Urine Yellow (Yellow); Urine Clarity Sl Cldy (Clear); White Blood Cells 5-10 SEEN /hpf (0-5)
--- NOTE | 2021-10-01 23:30 | RAD_ITS ---
HISTORY: fever, fall EXAMINATION/TECHNIQUE: XR Chest 1 View COMPARISON: None FINDINGS: LINES/DEVICES: panel monitor leads. LUNGS: No overt pulmonary edema. No focal airspace consolidation. No sizable pleural effusion. No pneumothorax detected. Mildly elevated right hemidiaphragm. MEDIASTINUM AND CARDIOVASCULAR STRUCTURES: Heart size within normal limits for imaging technique. Atherosclerotic calcifications along the aorta. BONES AND SOFT TISSUES: Skeletal degenerative changes. RAD/Chest 1 View (Portable) IMPRESSION: No radiographic evidence of acute cardiopulmonary disease. at 0003 Reported and signed by: Edmund Porras MD Electronically Signed: Edmund Porras MD at 0:02 EST Tel , Service support ,
[2021-10-01 23:48] VITALS: BP 141/58; PULSE 76; RESP 18; O2SAT 97
[2021-10-01] MEDS: Ceftriaxone 1 GM/50 ML BAG IV (23:56)
[2021-10-02] VITALS (17 sets, daily range): BP systolic 118–155; BP diastolic 43–63; PULSE 72–97; RESP 13–18; TEMP 36.8–37.7; O2SAT 87–97; BMI 23.3
--- NOTE | 2021-10-02 00:33 | HP.PCM.HOS_ITS ---
HPI - General General Date of Admission: 10/02/21 HPI Narrative KYLEE LORA, is a 86 F who presents after a fall. The patient was at home with her granddaughter and granddaughter heard a crash downstairs and found her mother to be lying on her left side on the floor. Patient was previously here on September 25 for syncopal episode and had a bruise on forehead. Granddaughter did not come to the hospital because she recently tested for Covid in the last day. Patient says she is on Eliquis but she does not know her last day last taken and cannot give much information of how she keeps track of her medications. Doesn't complain of any pain. Patient does not realize her issue of falls and is not oriented to location, and think she is at home. Therefore her history is limited The patient has a hematoma on her forehead but this is from prior fall. She did not give any history on evaluation. Lab work noted new leukocytosis and a UA showed bacteria with leukocyte esterase, and 5-10 cells But pelvox-ray showed a fracture of the left femoral neck and orthopedics was consulted, who do recommend that her other issues be sorted out before going to surgery. The patient does take Eliquis at home for paroxysmal A. fib. She was given Rocephin in the ED for UTI. Rapid COVID negative. [facility] Medical History Dementia Essential (primary) hypertension Fatigue Hyperlipidemia Hypothyroidism Paroxysmal atrial fibrillation Home Medications atorvastatin 10 mg tablet 10 mg PO QDAY 30 Days #30 tab 10/06/17 [History Last Taken Unknown] donepezil 10 mg tablet 10 mg PO DAILY 30 Days #30 10/06/17 [History Last Taken Unknown] imipramine HCl 25 mg tablet 25 mg PO QHS 30 Days #30 tab 10/06/17 [History Last Taken Unknown] levothyroxine 25 mcg tablet 25 mcg PO QDAY 30 Days #30 tab 10/06/17 [History Last Taken Unknown] losartan 100 mg tablet 100 mg PO QDAY 30 Days #30 tab 10/06/17 [History Last Taken Unknown] metoprolol succinate 25 mg tablet,extended release 24 hr 25 mg PO QDAY 30 Days #30 tab 10/06/17 [History Last Taken Unknown] cholecalciferol (vitamin D3) 125 mcg (5,000 unit) capsule 5,000 unit PO .2xweek cap 06/27/19 [History Last Taken Unknown] apixaban 5 mg tablet 2.5 mg PO BID #0 tab 01/14/20 [Rx Last Taken Unknown] Mirtazapine 45 mg PO DAILY 12/04/20 [History Last Taken Unknown] amlodipine 5 mg PO/SL DAILY 10/01/21 [History Last Taken Unknown] Allergy/AdvReac Type Severity Reaction Status Date / Time No Known Allergies Allergy Verified 09/25/21 14:09 Family History Brother CAD (coronary artery disease) Myocardial infarction in his 40s Mother Dementia Surgical History History of hysterectomy Social History Smoking Status: Never smoker alcohol intake: never substance use type: does not use caffeine: Yes Type: tea what type of physical activity do you participate in: none seatbelt use: always do you feel safe at home: Yes ROS ROS Narrative No fevers chills diarrhea constipation, dysuria chest pain or racing cough shortness of breath. No trouble seeing hearing swallowing No pain, no skin problems Vital Signs Vital Signs Vital Signs: 10/01/21 21:47 10/01/21 21:55 10/01/21 22:01 Temperature 100.2 F H Temperature Source Oral Pulse Rate 79 Respiratory Rate 14 17 Respiratory Effort Normal Respiratory Depth Normal Respiratory Pattern Normal Blood Pressure 146/59 H Blood Pressure Mean 88 Pulse Ox 88 93 Oxygen Delivery Method Room Air Nasal Cannula Oxygen Flow Rate (L/min) 2 10/01/21 23:48 10/02/21 00:27 Temperature 99.0 F Temperature Source Temporal Pulse Rate 76 77 Respiratory Rate 18 13 Respiratory Effort Respiratory Depth Respiratory Pattern Blood Pressure 141/58 H 142/56 H Blood Pressure Mean 85 84 Pulse Ox 97 92 Oxygen Delivery Method Nasal Cannula Nasal Cannula Oxygen Flow Rate (L/min) 2 2 Weight Weight: 141 lb 1.533 oz Body Mass Index (BMI) 24.2 Physical Exam Narrative HEENT Dry mucous membranes HEENT Narrative: Hematoma left forehead Eyes Eyes Narrative: tracks EOMI Neck supple Chest Wall inspection of chest normal and palpation of chest normal Resp normal respiratory effort and clear to auscultation bilaterally Cardio regular rate and regular rhythm GI non-tender Palpation: soft Extremity normal to inspection Extremity Narrative: No significant edema or deformity. no LE edema Results Lab / Micro Data Result Diagrams: 10/01/21 22:31 12 22:31 Labs: Laboratory Results - last 24 hr 10/01/21 22:31: WBC 15.8 H, RBC 4.73, Hgb 13.2, Hct 40.0, MCV 84.6, MCH 27.9, MC HC 33.0, RDW Std Deviation 40.3, RDW Coeff of Rony 13.1, Plt Count 245, MPV 9.9, Immature Gran % (Auto) 0.800, Neut % (Auto) 85.0 H, Lymph % (Auto) 7.8 L, [place] % (Auto) 6.1, Eos % (Auto) 0.0, Baso % (Auto) 0.3, Absolute Neuts (auto) 13.5 H, Absolute Lymphs (auto) 1.24, Nucleated RBC % 0 10/01/21 22:31: PT 17.3 H, INR 1.5, APTT 37.8 H 10/01/21 22:31: Sodium 135 L, Potassium 3.5, Chloride 100, Carbon Dioxide 26.0, Anion Gap 9, BUN 20 H, Creatinine 1.28 H, Estim Creat Clear Calc 28.25, Est GFR (MDRD) Af Amer 51 L, Est GFR (MDRD) Non-Af 42 L, BUN/Creatinine Ratio 15.6, Glucose 132 H, Calcium 9.9 10/01/21 22:53: Urine Color Yellow, Urine Clarity Sl Cldy, Urine pH 6.5, Ur Spec ific [place] 1.015, Urine Protein 30 H, Urine Glucose (UA) Normal, Urine Ketones Negative, Urine Occult Blood 150 H, Urine Nitrite Negative, Urine Bilirubin Negative, Urine Urobilinogen 1 H, Ur Leukocyte Esterase 25 H, Urine RBC 0 SEEN, Urine WBC 5-10 SEEN, Ur Squamous Epith Cells 0 SEEN, Urine Bacteria 3+, Urine Mucus 0 SEEN Micro: Microbiology 10/01/21 22:31 Nasal Secretion SARS-CoV-2 Antigen (Rapid) - Final Radiology Impression Brain CT 10/01/21 22:07 IMPRESSION: Left supraorbital scalp swelling with no calvarial fracture or acute intracranial abnormality. Chronic involutional and white matter changes. Stable appearance of probable small meningioma within superolateral right posterior fossa. Individualized dose optimization techniques were used for this CT. at 2341 Reported and signed by: Edmund Porras MD Electronically Signed: Edmund Porras MD at 23:40 EST Tel , Service support , Cervical Spine CT 10/01/21 22:07 IMPRESSION: 1. Cervical spondylosis with no evidence of acute osseous injury. 2. Thyroid mass and nodule. Recommend nonemergent follow-up thyroid ultrasound if no previous workup performed. Individualized dose optimization techniques were used for this CT. at 2345 Reported and signed by: Edmund Porras MD Electronically Signed: Edmund Porras MD at 23:44 EST Tel , Service support , Hip/Pelvis X-Ray 10/01/21 22:07 IMPRESSION: Partially displaced left femoral neck fracture. at 0007 Reported and signed by: Edmund Porras MD Electronically Signed: Edmund Porras MD at 0:06 EST Tel , Service support , Knee X-Ray 10/01/21 22:07 IMPRESSION: Negative left knee. at 0004 Reported and signed by: Edmund Porras MD Electronically Signed: Edmund Porras MD at 0:03 EST Tel , Service support , Chest X-Ray 10/01/21 23:30 IMPRESSION: No radiographic evidence of acute cardiopulmonary disease. at 0003 Reported and signed by: Edmund Porras MD Electronically Signed: Edmund Porras MD at 0:02 EST Tel , Service support , Assessment & Plan Assessment/Plan (1) Fracture of left hip: (2) UTI (urinary tract infection): (3) Paroxysmal atrial fibrillation: (4) Near syncope: (5) Essential (primary) hypertension: PLAN: Partially displaced left femoral neck fracture Recent falls - Orthopedics consulted, likely several days before operation - Hold Eliquis for surgery. - Continue PT, OT while inpatient - Intensive nutritional support - Incentive spirometry - Tylenol and oxycodone as needed for pain, and continue Zofran as needed UTI -UA with leukocyte esterase and bacteria, small amount of white cells (5-10) -Cultures obtained in the ED -Continue Rocephin 1 g daily -May have confusion secondary to dementia versus new delirium-UTI possible cause of delirium Essential hypertension -Resume home medications Paroxysmal A. fib -Hold Eliquis, use Lovenox BID leading up to hip surgery -Meoprolol 25 mg ER -Monitor with telemetry -Normal LV size. -Mild concentric left ventricular hypertrophy. -Left ventricular systolic function is normal. -Per 2019 study The estimated ejection fraction is 65 %. Patent foramen ovale. Contrast injection was performed. Structurally normal valves. Patient is a full code Continue with full diet at this time We will anticoagulate with Lovenox, full dose COVID precautions can likely be taken off soon Sergio Smith MD Charges/Coding Visit Charges Inpatient E&M: 79052 Init Hosp L3
--- NOTE | 2021-10-02 01:23 | PCS.PANDOC ---
PANDEMIC DOCUMENTATION INITIATED: Date: 05/17/2021 Time: 190
--- NOTE | 2021-10-02 03:17 | PCM.HOSP.N ---
Hospitalist Note Patient is listed as a full code unverified, as she is not in a mental capacity to make this decision. She is confused and is not oriented and does not understand the ramifications of DNR versus Full life support, therefore primary team may discuss with family members, or may reevaluate when her mentation is clear. For now we will keep the patient full code. Sergio Smith MD
[2021-10-02] MEDS: Levothyroxine 25 MCG TABLET PO (05:50)
[2021-10-02 06:44] LABS: Absolute Neutrophil Count 10.8 X10^3/uL (2.0-7.7); Basophil# 0.04 X10^3/uL; Basophil% 0.3 % (0-1); Eosinophil# 0.46 X10^3/uL; Eosinophils% 3.5 % (0-5); Hemoglobin 12.9 g/dL (12.0-15.0); Mean Corp Hgb Conc 32.3 g/dL (32-36); Mean Corpuscular Hgb 27.1 pg (27.0-32.0); Mean Platelet Vol. 9.9 fl (6.2-12.0); Monocyte# 0.68 X10^3/uL; Monocyte% 5.1 % (0-10); NRBC Flagged by Analyzer 0 % (0-5); Neutrophil # 10.79 X10^3/uL (2.7-7.7); Neutrophil % 81.4 % (47-70); Platelet Count 235 K/mm3 (150-450); RBC Distribution Width CV 13.2 % (11.6-14.6); RBC Distribution Width SD 41.1 fl (35.1-43.9); Red Blood Count 4.76 M/mm3 (4.2-5.4); White Blood Count 13.3 K/mm3 (4.4-11.0)
[2021-10-02 07:05] LABS: Anion Gap 9 (5-15); BUN 23 mg/dL (7-18); BUN/Creat Ratio 17.3 RATIO (10-20); Calcium,Total 9.6 mg/dL (8.5-10.1); Chloride 100 mmol/L (98-107); Creatinine, Serum 1.33 mg/dL (0.55-1.02); EST Glomerular Filtration Rate 40 mL/min (>60); Est Glom Filt Rate - Afr Amer 49 mL/min (>60); Estimated Creatinine Clearance 28.33 ml/min; Glucose 127 mg/dL (74-106); Potassium 3.6 mmol/L (3.5-5.1); Sodium Level 135 mmol/L (136-145)
[2021-10-02] MEDS: Metoprolol(XL)Succ 25 MG Tablet PO (09:11)
[2021-10-02] MEDS: Losartan Potassium 100 MG Tablet PO (09:12)
[2021-10-02] MEDS: Donepezil HCl 10 MG Tablet PO (09:12)
[2021-10-02] MEDS: amLODIPine 5 MG Tablet PO (09:12)
[2021-10-02] MEDS: Mirtazapine 30 MG Tablet 45 MG PO (09:12)
[2021-10-02] MEDS: Menthol/Lanolin/Calamine/Znox 113 GM Tube 1 APPLIC TOPICAL ×4 (09:12→20:43)
[2021-10-02] MEDS: Enoxaparin 60 MG/0.6 ML Syringe SC (09:14)
--- NOTE | 2021-10-02 12:04 | PCM.CONS.GEN ---
Assessment & Plan Assessment/Plan (1) Fracture of left hip: QUALIFIERS: Encounter type: initial encounter Fracture type: closed Qualified Code(s): S72.002A - Fracture of unspecified part of neck of left femur, initial encounter for closed fracture PLAN: 1. Left hip displaced femoral neck fracture: Her diagnosis and treatment options discussed at length with the patient as well as her son Fritz who lives in [place]. Phone number [phone]. He is reportedly primary medical power of district attorney. All of his questions were answered. He understands her current hip fracture diagnosis as well as multiple medical comorbidities. Risk benefits and alternative procedures discussed in regards to her hip fracture. He would like her to proceed with left hip fracture surgery when medically stable, cleared. He understands we will plan to proceed with cemented hemiarthroplasty. Plan Ancef for perioperative antibiotic. Will resume Eliquis postoperatively Risk of surgery including but not limited to from operative or postoperative complications. Risk of anesthetic complications such as heart attacks, strokes, seizures, or . Risk of infections. Risk of damage to nerves arteries tendons. Risk of inadvertent fractures or dislocations. Risk of bone or wound healing complications. Possibility of nonunion malunion pain stiffness weakness. Possible need for further surgery such as hardware removal. Risk of DVT PE and other potential complications could lead to or disability explained. No guarantees were stated or implied. All of their questions were answered. Appropriate informed consent was obtained and will be signed for surgical intervention. Case has been discussed with Dr. Chopra, he is aware of our plan for surgery Monday at 1 PM #2 history of atrial fibrillation, on Eliquis. After discussion with Dr. Cali, we have decided to proceed with surgery Monday afternoon based on her blood thinner use. We will discontinue her Lovenox. She will be placed on RAS hose SCDs. #3 urinary tract infection, currently on Rocephin., Cultures pending #4 dementia #5 recent exposure to COVID-19. Patient has tested negative twice on this admission. Reportedly she has been fully vaccinated with unclear history of booster dose HPI Consult Data Date of Consult: 10/02/21 HPI Narrative HPI Narrative: Patient is an 86-year-old female who lives at home with her granddaughters. Reportedly she had an unwitnessed fall yesterday evening October 01, 2021 sustaining a left hip fracture. She was brought to the hospital and admitted to the medical service. Orthopedics was appropriately consulted. Patient does have dementia which has been progressive over the past for 5 years. Patient does normally ambulate at home. Patient does have atrial fibrillation history, on Eliquis. Also noted for urinary tract infection. Reportedly patient has had Covid vaccine, uncertain if she has had a booster dose. Reportedly family members she is living with currently have Covid [facility] Medical History (Updated 10/02/21 @ 12:[address] Christiano Ward MD) Dementia Essential (primary) hypertension Fatigue Hyperlipidemia Hypothyroidism Paroxysmal atrial fibrillation Home Medications atorvastatin 10 mg tablet 10 mg PO QDAY 30 Days #30 tab 10/06/17 [History Last Taken Unknown] donepezil 10 mg tablet 10 mg PO DAILY 30 Days #30 10/06/17 [History Last Taken Unknown] imipramine HCl 25 mg tablet 25 mg PO QHS 30 Days #30 tab 10/06/17 [History Last Taken Unknown] levothyroxine 25 mcg tablet 25 mcg PO QDAY 30 Days #30 tab 10/06/17 [History Last Taken Unknown] losartan 100 mg tablet 100 mg PO QDAY 30 Days #30 tab 10/06/17 [History Last Taken Unknown] metoprolol succinate 25 mg tablet,extended release 24 hr 25 mg PO QDAY 30 Days #30 tab 10/06/17 [History Last Taken Unknown] cholecalciferol (vitamin D3) 125 mcg (5,000 unit) capsule 5,000 unit PO .2xweek cap 06/27/19 [History Last Taken Unknown] apixaban 5 mg tablet 2.5 mg PO BID #0 tab 01/14/20 [Rx Last Taken Unknown] Mirtazapine 45 mg PO DAILY 12/04/20 [History Last Taken Unknown] amlodipine 5 mg PO/SL DAILY 10/01/21 [History Last Taken Unknown] Allergy/AdvReac Type Severity Reaction Status Date / Time No Known Allergies Allergy Verified 09/25/21 14:09 Family History Brother CAD (coronary artery disease) Myocardial infarction in his 40s Mother Dementia Surgical History History of hysterectomy Social History Smoking Status: Never smoker alcohol intake: never substance use type: does not use caffeine: Yes Type: tea what type of physical activity do you participate in: none seatbelt use: always do you feel safe at home: Yes ROS ROS Narrative Patient is a poor historian. She denies any recent changes to eyes ears nose or throat heart or lungs bowel or bladder. She currently denies left hip pain while laying still. Physical Exam Narrative Patient is lying comfortably in bed. She does have on O2 per nasal cannula. I did place a mask on her due to current COVID-19 pandemic. Patient's left hip has shortening and external rotation. Patient's left hip has pain with axial loading. Patient's left hip has pain with gentle internal and external rotation. Mild pain on palpation left hip. No pain at the left knee or lower extremity distally. No pain at the right hip or lower extremity with motion and palpation. Distal pulses and sensation are intact. No posterior calf pain. Negative Homans' sign. She is able to plantarflex and dorsiflex toes and ankles, less on the left because of hip pain X-rays AP pelvis AP and lateral of left hip shows a left hip displaced femoral neck fracture. No severe arthritis. There is degenerative changes of the lumbar spine. Knee x-rays reviewed showing no obvious acute fracture. CT scan reports of the head noted. CT scan of the cervical spine also noted. Chest x-ray reported as negative for acute process EKG reviewed Vital signs and laboratory work reviewed Current medication list reviewed Lab / Micro Data Result Diagrams: 10/02/21 05:55 10/02/21 05:55 Labs: Laboratory Results - last 24 hr 10/01/21 22:31: WBC 15.8 H, RBC 4.73, Hgb 13.2, Hct 40.0, MCV 84.6, MCH 27.9, MCHC 33.0, RDW Std Deviation 40.3, RDW Coeff of Rony 13.1, Plt Count 245, MPV 9.9, Immature Gran % (Auto) 0.800, Neut % (Auto) 85.0 H, Lymph % (Auto) 7.8 L, Mathews % (Auto) 6.1, Eos % (Auto) 0.0, Baso % (Auto) 0.3, Absolute Neuts (auto) 13.5 H, Absolute Lymphs (auto) 1.24, Nucleated RBC % 0 10/01/21 22:31: PT 17.3 H, INR 1.5, APTT 37.8 H 10/01/21 22:31: Sodium 135 L, Potassium 3.5, Chloride 100, Carbon Dioxide 26.0, Anion Gap 9, BUN 20 H, Creatinine 1.28 H, Estim Creat Clear Calc 28.25, Est GFR (MDRD) Af Amer 51 L, Est GFR (MDRD) Non-Af 42 L, BUN/Creatinine Ratio 15.6, Glucose 132 H, Calcium 9.9 10/01/21 22:53: Urine Color Yellow, Urine Clarity Sl Cldy, Urine pH 6.5, Ur Specific [place] 1.015, Urine Protein 30 H, Urine Glucose (UA) Normal, Urine Ketones Negative, Urine Occult Blood 150 H, Urine Nitrite Negative, Urine Bilirubin Negative, Urine Urobilinogen 1 H, Ur Leukocyte Esterase 25 H, Urine RBC 0 SEEN, Urine WBC 5-10 SEEN, Ur Squamous Epith Cells 0 SEEN, Urine Bacteria 3+, Urine Mucus 0 SEEN 10/01/21 23:45: COVID-19 (MARGARETTE) Not Detected 10/02/21 05:55: WBC 13.3 H, RBC 4.76, Hgb 12.9, Hct 40.0, MCV 84.0, MCH 27.1, MCHC 32.3, RDW Std Deviation 41.1, RDW Coeff of Rony 13.2, Plt Count 235, MPV 9.9, Immature Gran % (Auto) 0.700, Neut % (Auto) 81.4 H, Lymph % (Auto) 9.0 L, Mathews % (Auto) 5.1, Eos % (Auto) 3.5, Baso % (Auto) 0.3, Absolute Neuts (auto) 10.8 H, Absolute Lymphs (auto) 1.20, Nucleated RBC % 0 10/02/21 05:55: Sodium 135 L, Potassium 3.6, Chloride 100, Carbon Dioxide 26.0, Anion Gap 9, BUN 23 H, Creatinine 1.33 H, Estim Creat Clear Calc 28.33, Est GFR (MDRD) Af Amer 49 L, Est GFR (MDRD) Non-Af 40 L, BUN/Creatinine Ratio 17.3, Glucose 127 H, Calcium 9.6 Micro: Microbiology 12/31/21 22:31 Nasal Secretion SARS-CoV-2 Antigen (Rapid) - Final Radiology Impression Brain CT 10/01/21 22:07 IMPRESSION: Left supraorbital scalp swelling with no calvarial fracture or acute intracranial abnormality. Chronic involutional and white matter changes. Stable appearance of probable small meningioma within superolateral right posterior fossa. Individualized dose optimization techniques were used for this CT. at 2341 Reported and signed by: Edmund Porras MD Electronically Signed: Edmund Porras MD at 23:40 EST Tel , Service support , Cervical Spine CT 10/01/21 22:07 IMPRESSION: 1. Cervical spondylosis with no evidence of acute osseous injury. 2. Thyroid mass and nodule. Recommend nonemergent follow-up thyroid ultrasound if no previous workup performed. Individualized dose optimization techniques were used for this CT. at 2345 Reported and signed by: Edmund Porras MD Electronically Signed: Edmund Porras MD at 23:44 EST Tel , Service support , Hip/Pelvis X-Ray 10/01/21 22:07 IMPRESSION: Partially displaced left femoral neck fracture. at 0007 Reported and signed by: Edmund Porras MD Electronically Signed: Edmund Porras MD at 0:06 EST Tel , Service support , Knee X-Ray 10/01/21 22:07 IMPRESSION: Negative left knee. at 0004 Reported and signed by: Edmund Porras MD Electronically Signed: Edmund Porras MD at 0:03 EST Tel , Service support , Chest X-Ray 10/01/21 23:30 IMPRESSION: No radiographic evidence of acute cardiopulmonary disease. at 0003 Reported and signed by: Edmund Porras MD Electronically Signed: Edmund Porras MD at 0:02 EST Tel , Service support ,
[2021-10-02] MEDS: 0.9% Normal Saline 1,000 ML 100 ML IV ×2 (12:43→20:50)
--- NOTE | 2021-10-02 15:38 | PCM.HOSP.N ---
Hospitalist Note Patient was seen and examined briefly today, I talked with orthopedic surgery about her care. I also talked with her granddaughter who she lives with, she confirmed that the patient took her Eliquis last night. Patient has a history of dementia. Permission for repair of her hip fracture was obtained by orthopedic surgery from her son who lives in [place]. I reviewed the patient's EKG which shows no evidence of prior myocardial infarction or acute injury pattern. I feel the patient is stable for surgery at this time and I have advised orthopedic surgery to hold off until tomorrow afternoon due to this patient's use of Eliquis.
--- NOTE | 2021-10-02 18:19 | NURSING ---
Bladder scanned for 352 patient denies need to void at this time.
[2021-10-02] MEDS: Atorvastatin Calcium 10 MG Tablet PO (20:43)
[2021-10-02] MEDS: Imipramine HCl 25 MG Tablet PO (20:43)
[2021-10-02] MEDS: Nystatin Powder 15gm Bottle 1 APPLIC TOPICAL (20:43)
[2021-10-02] MEDS: Acetaminophen 325 MG Tablet 650 MG PO (20:43)
[2021-10-02] MEDS: Ceftriaxone 1 GM/50 ML BAG IV (20:48)
[2021-10-02] MEDS: 0.9% Saline Lock 10 ML Syringe IV (20:53)
[2021-10-03] VITALS (18 sets, daily range): BP systolic 114–150; BP diastolic 46–75; PULSE 61–97; RESP 14–18; TEMP 35.8–37; O2SAT 93–100; BMI 24.0
[2021-10-03] MEDS: 0.9% Normal Saline 1,000 ML 100 ML IV ×2 (05:20→17:13)
[2021-10-03 06:55] LABS: Absolute Lymphocyte Count 0.66 X10^3/uL (0.83-4.51); Absolute Neutrophil Count 5.4 X10^3/uL (2.0-7.7); Basophil# 0.01 X10^3/uL; Basophil% 0.2 % (0-1); Eosinophil# 0.03 X10^3/uL; Eosinophils% 0.5 % (0-5); Hematocrit 33.8 % (37-47); Lymphocyte # 0.66 X10^3/ul (0.83-4.51); Lymphocyte % 9.9 % (19-41); Mean Corp Hgb Conc 32.5 g/dL (32-36); Mean Corpuscular Hgb 27.7 pg (27.0-32.0); Mean Corpuscular Volume 85.1 fL (81-99); Mean Platelet Vol. 10.1 fl (6.2-12.0); Monocyte# 0.52 X10^3/uL; Monocyte% 7.8 % (0-10); NRBC Flagged by Analyzer 0 % (0-5); Neutrophil # 5.37 X10^3/uL (2.7-7.7); Neutrophil % 80.5 % (47-70); Platelet Count 211 K/mm3 (150-450); RBC Distribution Width CV 13.7 % (11.6-14.6); RBC Distribution Width SD 42.7 fl (35.1-43.9); Red Blood Count 3.97 M/mm3 (4.2-5.4); White Blood Count 6.7 K/mm3 (4.4-11.0)
[2021-10-03 07:17] LABS: Anion Gap 7 (5-15); BUN 26 mg/dL (7-18); BUN/Creat Ratio 19.3 RATIO (10-20); Chloride 108 mmol/L (98-107); Creatinine, Serum 1.35 mg/dL (0.55-1.02); EST Glomerular Filtration Rate 40 mL/min (>60); Est Glom Filt Rate - Afr Amer 48 mL/min (>60); Estimated Creatinine Clearance 27.91 ml/min; Glucose 115 mg/dL (74-106); Sodium Level 142 mmol/L (136-145)
--- NOTE | 2021-10-03 09:56 | NURSING ---
TALKED WITH SON EWELINA AND REVIEWED PT'S SURGICAL HX-
[2021-10-03] MEDS: Potassium Chloride Oral Tablet 20 MEQ 40 MEQ PO (10:20)
[2021-10-03] MEDS: Metoprolol(XL)Succ 25 MG Tablet PO (10:28)
[2021-10-03] MEDS: Cefazolin 2 GM in 0.9% Normal Saline 100 ML IV (13:20)
--- NOTE | 2021-10-03 13:20 | FEM_PTH ---
PATIENT: KYLEE LORA LOC: MS3 U#:[id number] AGE/SX: 86/F ROOM: MS308 RE10/02/[address]: Dr. Luh Stack MD : [id number] BED: 1 DIS: 10/04/2021 SPEC #: [id number] RECD: 10/04/21 07:04 STATUS: LILIANA RERachell #: [id number] EMILY: 10/03/21 13:[address]: Christiano Ward DEPT: SURGICAL PATHOLOGY RECD BY: Valencia Christiansen ENTERED: 10/04/21 09:33 SP TYPE: FEM HEAD OTHR DR: MD Dr. Rom Cueto MD Dr. Ryan Burkholder, MD Dr. Rodney Miller, MD Tissues: Femoral region, NOS Procedures: Decalcification bone/plaque Surgery Specimen Level IV Comments: @ Ordering doctor for DEC edited from to [email or web address] Sun by NOVA at 10/04/21 1520 @ Ordering doctor for SUV edited from to [email or web address] Sun by NOVA at 10/04/21 1520 @ Submitting doctor edited from to [email or web address] Sun by NOVA at 10/04/21 1520 HEADER OPERATION: Left hip hemiarthroplasty PRE-OP DIAGNOSIS: Fracture of left hip TISSUE SUBMITTED: Left femoral head MICROSCOPIC DIAGNOSIS Left femoral head, hemiarthroplasty: Femoral head with focal area of hemorrhage, clinically fracture of left hip. Fragments of fibroconnective tissue and reactive synovial tissue. HAILEY:danna 10/07/2021 MICROSCOPIC DESCRIPTION Slides are reviewed. GROSS DESCRIPTION Received is one container labeled with the patient's name and designated femoral head. The specimen consists of a bailey femoral head measuring 4 x 4 x 3 cm. The articular surface is smooth. Resection margin is irregular and hemorrhagic. Also present on the top of femoral head is a piece of soft tissue measuring 2 x 1 x 0.2 cm. Sustainability Executive Director sections are submitted in three cassettes as follows: 1 - soft tissue, entirely submitted, 2 & 3 - femoral head after decalcification. / HAILEY:danna 10/04/21 TC:5 CPT: 98832, 81108
--- NOTE | 2021-10-03 13:21 | OP.PCM_ITS ---
Problems Associated Problem List Diagnoses (1) Fracture of left hip: Operative Report Date of Procedure: 10/03/21 Preoperative diagnosis: Left hip displaced femoral neck fracture Postoperative diagnosis: Same Operation: Left hip cemented hemiarthroplasty Surgeon: Dr. Christiano Ward MD Talent Engineer: MICHAELLE Rico Anesthesia: General Anesthesiologist; Dr. Chopra/PARTICIO Special medications: IV [Ancef] 2 g, IV Tranexamic acid wound washes EBL: 300 Complications: None Specimen: Bone/femoral head Indications for surgery : Patient is a (86) -year-old female patient that fell in the evening of October 01, 2021 fracturing the involved hip. Appropriate informed consent was obtained and signed. Appropriate medical workup was performed preoperatively and patient was deemed safe for surgery by the anesthesia department. Due to Eliquis use surgery was delayed assistant track and field coach, MICHAELLE was utilized throughout the entire procedure. They were vital in helping with patient positioning, holding of retractors, exposing the tissues adequately for safe completion of the procedure including cutting of the bone, helping management professional appropriate alignment and sizing of the components, implantation of the components, as well as wound closure, bandage application, and safe patient transfer. Without neurosurgical nurse practitioner, physician health care assistant, surgical time would have been significantly increased, and surgical outcome would have been less optimal. Operative findings: Patient had displaced comminuted femoral neck fracture. We used a Rodney Accolade C size # 4 cemented 127 degree neck angle.. Bipolar 45 mm femoral head with a + 0 neck length. Distal centralizer was a 14 mm spacer. This reproduced there anatomy nicely. Clinically good leg lengths were noted. Good hip stability through range of motion with no undue pistoning. Standard wound closure in layers, followed by fredy, followed by Mepilex dressing Details of procedure: Patient was taken to the operating room and transferred to the operating table. Given appropriate general anesthetic agent by that department. Patient was then rolled into a lateral decubitus position with the involved painful hip up in the air. Appropriate timeouts had been performed. Hip had been appropriately marked with my initials. Padded anterior and posterior position was utilized. Axillary roll placed. RAS hose and SCDs on the nonoperative limb utilized throughout the procedure. Operative lower extrem ity was prepped padded and draped in the usual orthopedic sterile fashion for the procedure. I injected the pain relieving solution in the standard sterile technique of the soft tissues of the hip carefully. Incision was made curving over the tip of the greater trochanter posteriorly. Full thickness skin flaps are raised down on the fascia fer. Fascia fer was opened in length with our incision. Charnley self-retaining hip retractor was carefully placed by the surgeon. Leg was appropriately rotated by the health care assistant. Retractor was used to lift the abductors anteriorly to visualize the piriformis tendon and external rotators. Piriformis tendon and external rotators released off the greater trochanter with the Bovie. Tagging suture was placed in each of these separately. We then split the tissue superior to the piriformis tendon through capsule and onto the pelvis. Acetabular labrum was preserved. Retractors were carefully placed around the femoral neck. Displaced unstable femoral neck fracture identified. cutting guide was utilized to map out the proposed cut approximately 1 fingerbreadth above the lesser trochanter. This femoral neck cut was carried out with a saw. Fractured femoral head removed from the acetabulum and measured and inspected. Appropriate trial was utilized. A proximal femoral elevator utilized. We used a sharp awl entering down inside the bone of the proximal femur. Utilized the Metabacus cutting osteotome the proximal lateral greater trochanteric region. The fragment removed. Broaching was then done from the smallest broach, upto the appropriate size. Good stability was confirmed. We then trialed the construct with a standard neck length and appropriate sized femoral head. We were happy with the construct. Good stability to flexion, rotation. At this point trials removed. 2 full batches of antibiotic bone cement were mixed. 2 sponges were placed in the acetabulum we prepared the canal with brushing. Cement restrictor was placed down to the appropriate depth. It was thoroughly irrigated clean and dry. When the cement was as the appropriate texture, we pressurized cement down in the femoral canal. The appropriate size stem then hammered into the proximal femur and seated down to a similar position as the trial had. Excess bone cement removed. Stem was held still while cement fully hardened. Pain relieving solution was injected while this was occurring. The cement was fully hardened, sponges were removed from the acetabulum. We now again trialed and appropriate neck length decided upon. It was then opened. Now impacted the appropriate sized femoral head, neck construct onto the clean dried trunion. Was noted to be stable. Hip was inspected, and joint was reduced for a final time. Good hip stability and leg lengths noted. This was then irrigated with saline and cleaned. 2 g Tranexamic acid wash was left in place for over 2 minutes. We used sterile Betadine throughout the incision for 2 minutes. We used irrisept solution as well. We then again thoroughly irrigated with saline. Next the remainder of the pain relieving solution was injected carefully throughout the soft tissues of the hip joint. Closure was carried out with a combination of #1 Vicryl repairing the hip capsule as well as piriformis tendon and external rotators to bone, running #2 strata fix in the fascia fer, followed by mid layer #1 Vicryl with #1 strata fix running. Next running 0 strata fix, followed by skin fredy, Xeroform, Mepilex dressing. We placed RAS hose and SCD on the operative leg. Patient awoken from the anesthetic and transferred back to room bed in recovery room in satisfactory condition. Patient will be admitted to the hospital. Hospitalist service will continue to manage the medical issues. Hopeful discharge to home or ECF in 2-3 days. Ancef 2 g was given IV preoperatively for antibiotic prophylaxis. We will plan Eliquis 2.5 mg twice daily starting tomorrow for DVT prevention as well as RAS hose and SCDs. This note was generated with [employer] dictation software. It may contain incorrect words, spelling, and punctuation that were not noted in checking the note before signing.
[2021-10-03] MEDS: Lactated Ringers 1,000 ML 15 ML IV (14:30)
[2021-10-03] MEDS: TXA in NS 100ml (Placed in Wound) OPERA.SITE (14:40)
--- NOTE | 2021-10-03 16:00 | RAD_ITS ---
STUDY: X-RAY - PELVIS AND LEFT HIP REASON FOR EXAM: Female, 86 years old. Post Op -- AP both hips on single lacie/lateral of op hip PACU TECHNIQUE: 2 views of the pelvis and hip. COMPARISON: 10/01/2021 FINDINGS: Please see the impression. RAD/Hip Min 2 Views (Portable) IMPRESSION: Interval left hip hemiarthroplasty. No radiographic evidence of hardware complication. 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 Electronically Signed: Irvin Wu MD at 17:48 EST Tel , Service support ,
--- NOTE | 2021-10-03 16:56 | PCM.PN.HOSP ---
Subjective Subjective Patient was seen and examined this morning, she went to surgery today for a left hemiarthroplasty due to her hip fracture. Patient's hemoglobin this morning was 11, she appeared medically stable before the surgery this morning. Patient did not appear to be in any distress at the time of my examination today, she was confused. Objective Data Objective Data Vital Signs: Vital Signs Temp Pulse Resp BP Pulse Ox 97.4 F L 84 14 125/55 H 93 10/03/21 16:28 10/03/21 16:34 10/03/21 16:28 10/03/21 16:28 10/03/21 16:28 Oxygen Flow Rate (L/min) 3 Oxygen Delivery Method Nasal Cannula Weight: 65.726 kg Body Mass Index (BMI) 24.0 Intake & Output: Intake and Output for Last 24 Hours 10/01/21 10/02/21 10/03/21 23:59 23:59 23:59 Intake Total 1351.67 / 1351.67 1960 / 1960 Output Total 250 / 250 Balance 1351.67 / 1276.67 1710 / 1710 Lab / Micro Data Result Diagrams: 10/03/21 05:40 10/03/21 05:40 Labs: Laboratory Results - last 24 hr 10/03/21 05:40: WBC 6.7, RBC 3.97 L, Hgb 11.0 L, Hct 33.8 L, MCV 85.1, MCH 27.7, MCHC 32.5, RDW Std Deviation 42.7, RDW Coeff of Rony 13.7, Plt Count 211, MPV 10.1, Immature Gran % (Auto) 1.100 H, Neut % (Auto) 80.5 H, Lymph % (Auto) 9.9 L, [place] % (Auto) 7.8, Eos % (Auto) 0.5, Baso % (Auto) 0.2, Absolute Neuts (auto) 5.4, Absolute Lymphs (auto) 0.66 L, Nucleated RBC % 0 10/03/21 05:40: Sodium 142, Potassium 3.0 L, Chloride 108 H, Carbon Dioxide 27.0, Anion Gap 7, BUN 26 H, Creatinine 1.35 H, Estim Creat Clear Calc 27.91, Est GFR (MDRD) Af Amer 48 L, Est GFR (MDRD) Non-Af 40 L, BUN/Creatinine Ratio 19.3, Glucose 115 H, Calcium 9.0 10/03/21 05:45: Blood Type O POSITIVE, Antibody Screen NEGATIVE Micro: Microbiology 10/01/21 22:53 Urine, Catheterized Urine Culture - Preliminary Staphylococcus species 10/01/21 22:31 Nasal Secretion SARS-CoV-2 Antigen (Rapid) - Final Physical Exam Const alert and no apparent distress Constitutional Narrative: Patient appears older than her stated age General Appearance: cooperative, well kempt and well developed Orientation / Consciousness: awake, oriented to person, oriented to place and oriented to time HEENT normocephalic, head/scalp atraumatic and moist oral mucous membranes Head and Scalp: normocephalic Eyes PERRL, EOMs intact bilaterally and conjunctivae normal Neck nuchal rigidity, supple, no JVD and thyroid normal General: trachea midline Resp normal respiratory effort, no retractions, no use of accessory muscles and clear to auscultation bilaterally Auscultation: Negative for rales, rhonchi or wheezes Cardio regular rate, regular rhythm, S1 normal heart sound, S2 normal heart sound, no murmurs, no rub and no gallops GI normal to inspection, nondistended, normoactive bowel sounds, soft to palpation, non-tender and non-distended Extremity no clubbing, cyanosis or edema Skin no rashes or lesions noted General Skin Exam: no breakdown Neuro CN's II-XII intact bilaterally, no focal motor deficits and no sensory deficits noted Sensorium / Orientation: awake and alert Psych Psych Narrative: Patient is alert but confused, she is not agitated or combative Assessment & Plan Assessment/Plan (1) Fracture of left hip: QUALIFIERS: Encounter type: initial encounter Fracture type: closed Qualified Code(s): S72.002A - Fracture of unspecified part of neck of left femur, initial encounter for closed fracture PLAN: 1. Left femoral neck fracture secondary to osteoporosis-postop day 0 left hemiarthroplasty-patient will be seen by PT and OT, she will need placement in a shelter facility at time of discharge #2 paroxysmal atrial fibrillation-patient is currently in normal sinus rhythm, she is to remain on her current medication #3 acute cystitis-secondary to staph-patient will remain on her current IV antibiotic #4 Alzheimer's dementia-complicates recovery and medical management, patient is currently on medication #5 hypothyroidism-patient is on levothyroxine #6 essential hypertension-patient is currently on losartan and metoprolol #7 hypokalemia-patient was given potassium supplementation this morning #8 chronic kidney disease stage IIIb-no treatment at this time, labs will be monitored Charges/Coding Visit Charges Inpatient E&M: 47681 Subs Hosp L2
[2021-10-03] MEDS: Cefazolin 1 GM/50 ML BAG IV (22:33)
[2021-10-03] MEDS: Menthol/Lanolin/Calamine/Znox 113 GM Tube 1 APPLIC TOPICAL (22:33)
[2021-10-03] MEDS: Nystatin Powder 15gm Bottle 1 APPLIC TOPICAL (22:34)
[2021-10-03] MEDS: Ceftriaxone 1 GM/50 ML BAG IV (23:05)
[2021-10-04] VITALS (7 sets, daily range): BP systolic 125–149; BP diastolic 62–94; PULSE 60–76; RESP 16–18; TEMP 36.4–36.6; O2SAT 94–99
[2021-10-04] MEDS: 0.9% Normal Saline 1,000 ML 100 ML IV (03:56)
[2021-10-04] MEDS: Cefazolin 1 GM/50 ML BAG IV (05:33)
[2021-10-04] MEDS: Levothyroxine 25 MCG TABLET PO (05:38)
[2021-10-04 06:52] LABS: Absolute Lymphocyte Count 0.88 X10^3/uL (0.83-4.51); Absolute Neutrophil Count 5.6 X10^3/uL (2.0-7.7); Basophil# 0.01 X10^3/uL; Basophil% 0.1 % (0-1); Hematocrit 32.2 % (37-47); Hemoglobin 10.6 g/dL (12.0-15.0); Lymphocyte # 0.88 X10^3/ul (0.83-4.51); Lymphocyte % 12.9 % (19-41); Mean Corp Hgb Conc 32.9 g/dL (32-36); Mean Corpuscular Hgb 28.1 pg (27.0-32.0); Mean Corpuscular Volume 85.4 fL (81-99); Monocyte% 4.4 % (0-10); NRBC Flagged by Analyzer 0 % (0-5); Neutrophil # 5.59 X10^3/uL (2.7-7.7); Neutrophil % 81.7 % (47-70); Platelet Count 206 K/mm3 (150-450); RBC Distribution Width CV 13.8 % (11.6-14.6); RBC Distribution Width SD 43.3 fl (35.1-43.9); Red Blood Count 3.77 M/mm3 (4.2-5.4); White Blood Count 6.8 K/mm3 (4.4-11.0)
[2021-10-04 07:12] LABS: Anion Gap 7 (5-15); BUN 28 mg/dL (7-18); BUN/Creat Ratio 27.2 RATIO (10-20); Calcium,Total 8.8 mg/dL (8.5-10.1); Chloride 111 mmol/L (98-107); Creatinine, Serum 1.03 mg/dL (0.55-1.02); EST Glomerular Filtration Rate 54 mL/min (>60); Est Glom Filt Rate - Afr Amer 66 mL/min (>60); Estimated Creatinine Clearance 36.59 ml/min; Glucose 145 mg/dL (74-106); Sodium Level 142 mmol/L (136-145)
[2021-10-04] MEDS: amLODIPine 5 MG Tablet PO (08:03)
[2021-10-04] MEDS: Mirtazapine 30 MG Tablet 45 MG PO (08:03)
[2021-10-04] MEDS: Donepezil HCl 10 MG Tablet PO (08:04)
[2021-10-04] MEDS: Losartan Potassium 100 MG Tablet PO (08:04)
[2021-10-04] MEDS: Senna/Docusate Sodium 1 Tablet 2 TABLET PO (08:04)
[2021-10-04] MEDS: Metoprolol(XL)Succ 25 MG Tablet PO (08:05)
[2021-10-04] MEDS: Acetaminophen 325 MG Tablet 650 MG PO (08:06)
[2021-10-04] MEDS: Menthol/Lanolin/Calamine/Znox 113 GM Tube 1 APPLIC TOPICAL ×2 (08:07→13:56)
[2021-10-04] MEDS: Nystatin Powder 15gm Bottle 1 APPLIC TOPICAL (08:07)
[2021-10-04] MEDS: APIXABAN 2.5 MG TABLET PO (08:09)
--- NOTE | 2021-10-04 10:01 | PCM.PN.HOSP ---
Subjective Subjective Follow-up on acute left hip fracture: Patient was seen and examined. She is alert oriented x2 but not to time. Overnight, she had urinary retention requiring use of [place] catheter. She stated that her pain is fairly controlled. Objective Data Objective Data Vital Signs: Vital Signs Temp Pulse Resp BP Pulse Ox 97.5 F L 60 16 132/62 H 98 10/04/21 07:57 10/04/21 08:05 10/04/21 07:57 10/04/21 07:57 10/04/21 07:57 Oxygen Flow Rate (L/min) 2 Oxygen Delivery Method Nasal Cannula Weight: 65.726 kg Body Mass Index (BMI) 24.0 Intake & Output: Intake and Output for Last 24 Hours 10/02/21 10/03/21 10/04/21 23:59 23:59 23:59 Intake Total 1351.67 / 1351.67 2660.83 / 2780.83 1063.33 / 1063.33 Output Total 800 / 900 700 / 700 Balance 1351.67 / 1276.67 1860.83 / 1880.83 363.33 / 363.33 Lab / Micro Data Result Diagrams: 10/04/21 06:17 10/04/21 06:17 Labs: Laboratory Results - last 24 hr 10/04/21 06:17: WBC 6.8, RBC 3.77 L, Hgb 10.6 L, Hct 32.2 L, MCV 85.4, MCH 28.1, MCHC 32.9, RDW Std Deviation 43.3, RDW Coeff of Rony 13.8, Plt Count 206, MPV 10.0, Immature Gran % (Auto) 0.900, Neut % (Auto) 81.7 H, Lymph % (Auto) 12.9 L, [place] % (Auto) 4.4, Eos % (Auto) 0.0, Baso % (Auto) 0.1, Absolute Neuts (auto) 5.6, Absolute Lymphs (auto) 0.88, Nucleated RBC % 0 10/04/21 06:17: Sodium 142, Potassium 4.0, Chloride 111 H, Carbon Dioxide 24.0, Anion Gap 7, BUN 28 H, Creatinine 1.03 H, Estim Creat Clear Calc 36.59, Est GFR (MDRD) Af Amer 66, Est GFR (MDRD) Non-Af 54 L, BUN/Creatinine Ratio 27.2 H, Glucose 145 H, Calcium 8.8 Micro: Microbiology 10/01/21 22:53 Urine, Catheterized Urine Culture - Final Coag Negative Staph 10/01/21 22:39 Blood Culture (Wb) - Left Wrist Blood Culture - Preliminary No growth in 48 hours. 10/01/21 22:31 Blood Culture (Wb) - Right Wrist Blood Culture - Preliminary No growth in 48 hours. 10/01/21 22:31 Nasal Secretion SARS-CoV-2 Antigen (Rapid) - Final Radiography Diagnostic Testing: Radiology Impression Hip X-Ray 10/03/21 16:00 IMPRESSION: Interval left hip hemiarthroplasty. No radiographic evidence of hardware complication. 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 Electronically Signed: Irvin Wu MD at 17:48 EST Tel , Service support , Physical Exam Narrative Physical exam: General: Alert, Oriented x3, Cooperative, No apparent distress, on 2 L oxygen HEENT: Atraumatic, bruits in the left periorbital region Oral: Moist Mucosa Neck: Supple Lungs: Diminished to auscultation Cardiovascular: HS I+II, regular, no murmurs Abdomen: Bowel Sounds Present, Soft, Non Tender Extremities: No edema, ice pack to the left hip Assessment & Plan Assessment/Plan (1) Fracture of left hip: QUALIFIERS: Encounter type: initial encounter Fracture type: closed Qualified Code(s): S72.002A - Fracture of unspecified part of neck of left femur, initial encounter for closed fracture PLAN: 1. POD #1 s/p left hip cemented hemiarthroplasty Patient presented with femoral neck fracture complicated by osteoporosis Continue with scheduled Tylenol, oxycodone as needed 2. Acute metabolic encephalopathy secondary to #3 Patient has baseline cognitive impairment/dementia Appears to be at her baseline, continue to monitor 3. Acute coagulase negative staph aureus cystitis Patient on IV ceftriaxone(day 3) Switch to doxycycline for 4 more days making 7 days total 4. Hypokalemia, replaced 5. Rest of her chronic medical conditions including paroxysmal atrial fibrillation/hypertension/hypothyroidism/CKD stage IIIb remained stable Rest of her home meds reviewed 6. DVT prophylaxis?on apixaban Charges/Coding Visit Charges Inpatient E&M: 32666 Subs Hosp L2
[2021-10-04] MEDS: Doxycycline 100 MG CAPSULE PO (11:05)
--- NOTE | 2021-10-04 12:03 | PN.ORTHO_ITS ---
Subjective Subjective Patient is s/p left sided hip magali-arthroplasty with Dr. Ward. Patient resting comfortably in the bedside chair. Rates pain 0/ 10 at rest. With movement 3/10. States taking Tylenol and oxycodone and ice help to relieve pain. Patient has been up with therapy. Walking with the assit of a walker. Afebrile, no chest pain, shortness of breath, negative calf pain/ erythema, and no other signs of DVT. basline memory impairment. patient orr snot remember falling or having surgery. Objective Data Objective Data Vital Signs: Vital Signs Temp Pulse Resp BP Pulse Ox 97.5 F L 60 16 132/62 H 98 10/04/21 07:57 10/04/21 08:05 10/04/21 07:57 10/04/21 07:57 10/04/21 07:57 Oxygen Flow Rate (L/min) 2 Oxygen Delivery Method Nasal Cannula Weight: 65.726 kg Body Mass Index (BMI) 24.0 Intake & Output: Intake and Output for Last 24 Hours 10/02/21 10/03/21 10/04/21 23:59 23:59 23:59 Intake Total 1351.67 / 1351.67 2660.83 / 2780.83 1365.00 / 1365.00 Output Total 800 / 900 700 / 700 Balance 1351.67 / 1276.67 1860.83 / 1880.83 665.00 / 665.00 Lab / Micro Data Result Diagrams: 10/04/21 06:17 10/04/21 06:17 Labs: Laboratory Results - last 24 hr 10/04/21 06:17: WBC 6.8, RBC 3.77 L, Hgb 10.6 L, Hct 32.2 L, MCV 85.4, MCH 28.1, MCHC 32.9, RDW Std Deviation 43.3, RDW Coeff of Rony 13.8, Plt Count 206, MPV 10.0, Immature Gran % (Auto) 0.900, Neut % (Auto) 81.7 H, Lymph % (Auto) 12.9 L, [place] % (Auto) 4.4, Eos % (Auto) 0.0, Baso % (Auto) 0.1, Absolute Neuts (auto) 5.6, Absolute Lymphs (auto) 0.88, Nucleated RBC % 0 10/04/21 06:17: Sodium 142, Potassium 4.0, Chloride 111 H, Carbon Dioxide 24.0, Anion Gap 7, BUN 28 H, Creatinine 1.03 H, Estim Creat Clear Calc 36.59, Est GFR (MDRD) Af Amer 66, Est GFR (MDRD) Non-Af 54 L, BUN/Creatinine Ratio 27.2 H, Glucose 145 H, Calcium 8.8 Micro: Microbiology 10/01/21 22:53 Urine, Catheterized Urine Culture - Final Coag Negative Staph 10/01/21 22:39 Blood Culture (Wb) - Left Wrist Blood Culture - Preliminary No growth in 48 hours. 10/01/21 22:31 Blood Culture (Wb) - Right Wrist Blood Culture - Preliminary No growth in 48 hours. 10/01/21 22:31 Nasal Secretion SARS-CoV-2 Antigen (Rapid) - Final Radiography Diagnostic Testing: Radiology Impression Hip X-Ray 10/03/21 16:00 IMPRESSION: Interval left hip hemiarthroplasty. No radiographic evidence of hardware complication. 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 Electronically Signed: Irvin Wu MD at 17:48 EST Tel , Service support , Physical Exam Narrative Patient resting comfortably in bed No signs of acute distress Satting well on room air Limb is warm to touch, Sensation intact throughout entire lower extremity, including saphenous, sural, superficial and deep peroneal, and tibial distribution. DP/PT pulses bounding. Dorsiflexion plantarflexion strength 5/5 Dressing clear dry intact Calf nontender to palpation, no erythema, no edema. Negative Homans Assessment & Plan Assessment/Plan (1) Fracture of left hip: QUALIFIERS: Encounter type: initial encounter Fracture type: closed Qualified Code(s): S72.002A - Fracture of unspecified part of neck of left femur, initial encounter for closed fracture (2) S/P hip hemiarthroplasty: PLAN: 1. Will continue PT today . Weightbearing as tolerated 2. Okay for discharge from an orthopedic standpoint. Discharge per primary team 3. Patient will follow up for post op appointment in 2 weeks. This will need to be arranged. 4. WBC 6.8 no acute reactive leukocytosis 5. H/H 10.6/32.2: post operavtive anemia secondary to acute blood loss intraoperatively. Patient is asymptomatic at this time. No intraoperative complications. will continue to monitor. no acute interventions. 6. DVT prophylaxis : Eliquis 2.5 mg BID. RAS hose. Mobility. 7. Pain control: patient instructed to take tylenol 500mg 2 tablets TID. and oxycodone 1-2 tablets every 4-6 hours only as needed for pain control. 8. surgical dressing can be removed POD5 9. orthopaedics will sign off. please call with any questions or concerns.
--- NOTE | 2021-10-04 13:17 | PCM.TXEXTCAR ---
Diet 10/04/21 08:00 Diet: Regular - General Type of Dietary Supplement:: Ensure Enlive Is pt able to select menu?: No Routine Orders/Code Status O2 Frequency: Continuous Keep PO Greater than or Equal to (%): 2 Routine Lab Work: CBC (within 3 days) and BMP (within 3 days) Code Status: Full Code Wound(s) lt hip: Wound Type: Surgical Incision left groin: Wound Type: Skin Tear Therapies Weight Bearing: Weight bearing as tolerated Physical Therapy: Eval and Treat Occupational Therapy: Eval and Treat Speech Therapy: Eval and Treat Problem/Diagnosis (1) Fracture of left hip: Status: Acute (2) S/P hip hemiarthroplasty: Status: Acute Allergies/Procedures Done in Hospital Allergies No Known Allergies Allergy (Verified 09/25/21 14:09) Procedures: - (s/p left hip cemented arthroplasty) Type of Care/Length of Stay Estimated LOS: Convalescent Care Less Than 30 days Type of Care Needed: Skilled Rehab Potential: Good Prognosis: Good Additional Orders/Day of Discharge Day of Discharge: 10/04/21 Discharge Plan Admission Admit Date/Time: 10/02/21 00:28 Primary Reason for Your Visit: Acute left hip fracture Attending Provider: Luh Stack Primary Care Provider: Rom Burns Consulting Providers: Christiano Ward Discharge Orders/Prescriptions Prescriptions: New sennosides-docusate sodium [Stool Softener-Stimulant Laxat] 8.6-50 mg Tablet 2 tab PO BID PRN (Reason: Constipation) Qty: 0 RF: 0 acetaminophen 500 mg Tablet 1,000 mg PO TID Qty: 0 RF: 0 doxycycline monohydrate 100 mg Capsule 100 mg PO BID 2 Days Qty: 0 RF: 0 oxycodone 5 mg Tablet 5 mg PO Q6H PRN PRN (Reason: Pain Score 6-10) Qty: 0 RF: 0 Continued levothyroxine 25 mcg tablet 25 mcg PO QDAY 30 Days Qty: 30 RF: 0 losartan 100 mg tablet 100 mg PO QDAY 30 Days Qty: 30 RF: 0 metoprolol succinate 25 mg tablet extended release 24 hr 25 mg PO QDAY 30 Days Qty: 30 RF: 0 atorvastatin 10 mg tablet 10 mg PO QDAY 30 Days Qty: 30 RF: 0 imipramine HCl 25 mg tablet 25 mg PO QHS 30 Days Qty: 30 RF: 0 donepezil 10 mg tablet 10 mg PO DAILY 30 Days Qty: 30 RF: 0 cholecalciferol (vitamin D3) 5,000 unit capsule 5,000 unit PO .2xweek RF: 0 Mirtazapine 45 mg PO DAILY RF: 0 amlodipine 5 mg PO/SL DAILY RF: 0 Eliquis 5 mg tablet 2.5 mg PO BID Qty: 0 RF: 0 Referrals / Follow Up: Rom Burns MD [Primary Care Provider] - Within 2 Weeks Christiano Ward MD [STAFF PHYSICIAN] - Within 2 Weeks (Call for appointment) Disposition Discharge Orders: Discharge Patient (Routine); Ordered 10/04/21 Ordered By: Dr. Luh Stack
--- NOTE | 2021-10-04 13:30 | CASEMGMT ---
RN LAURA Face to Face with patient for initial transition planning/care coordination assessment. RN CM introduced self and role at [facility]. Patient lying in bed, alert and disoriented. Patient gave permission to speak with granddaughter Romi to complete assessment. RN CM called Romi and is willing to participate in assessment and is able to answer all questions appropriately. Care providers, pharmacy, and demographics verified. CM to follow for discharge planning needs that may arise. PCP: Grant Specialists: none Preferred Pharmacy: [facility] [employer] [facility] Prescription Benefit: yes Living Will/HPOA: none LNOK: son, granddaughter Living Arrangements: Patient lives with granddaughter in a 1 story with 2 steps to enter. Patient was independent at home prior to hospitalization. Transportation: granddaughters DME/HHC: Patient has shower chair, raised toilet seat, grab bars, and walker at home. Patient is current with [facility]. No previous SNF. Disposition Plan: TBD by progress with therapy. Sarahi JOSEPH, RN, CM
--- NOTE | 2021-10-04 13:31 | CASEMGMT ---
Social Work Note SW updated that pt is currently confused. PT/OT recommending RU vs SNF. JOSE C placed a call to [facility] with RU/TCU. TCU is able to accept pt today. RN CM to complete initial assessment with pt/pt's granddaughter. JOSE C reviewed chart. Pt's HCPOA is son Fritz ([phone]). JOSE C placed a call to Fritz to discuss SNF options. Fritz's preferred provider is [facility]. JOSE C explained Medicare coverage at SNF. Fritz states understanding. JOSE C updated physician. Plan: TCU today Sarahi Mckinney WIRE ANNEALER, COMPUTATIONAL BIOLOGIST
[2021-10-04] MEDS: Acetaminophen 500 MG Tablet 1000 MG PO (13:55)
[2021-10-04] MEDS: oxyCODONE 5 MG Tablet PO (13:56)
--- NOTE | 2021-10-04 13:59 | CHAPLAIN ---
Type of Pastoral Visit _x__ Initial Visit ___ Follow-up Visit ___ On-call Visit ___ General Patient Visit ___ Spiritual Assessment ___ Family Conference ___ Bereavement ___ Rapid Response ___ Code Blue ___ Other (describe below) Pastoral Care Referral From _x__ Patient ___ Family ___ Nurse ___ Physician ___ Call Or Contact Centre Coach ___ Supervisor Histology ___ Other (describe below) Sacrament/Intervention _x__ Active listening ___ Anointing ___ Pentecostalism ___ Bereavement ___ Communion ___ Yakelin exploration ___ _x__ Life review _x__ Prayer ___ Reconciliation ___ Sacrament of Sick _x__ Supportive presence ___ Wedding ___ Other (describe below) Pastoral Comments patient is pleasant and welcoming of visit; pt did have some difficulty with specific answers to questions and seemed to be at a loss for remembering details; pt did have old family pictures on her windowsill which was a way to ask questions; pt unable to answer some simple questions about family; pt concern is for where she is going next; pt stated that since and she has been sick she would not mind going to be with him; inquired about her grief and offered prayer
--- NOTE | 2021-10-04 16:08 | DS.PCM_ITS ---
Providers Date of Admission: 10/02/21 Date of Discharge: 10/04/21 Primary Care Physician: Dr. Rom Burns MD Consultations 10/02/21 01:48 Consult: Orthopedics Routine Consulting Provider: Chrisitano Ward Reason for Consult: left hip fracture EMERGENT Consult: No MD Notified: Yes Date Notified: 10/02/21 Time Notified: 01:48 Method of Notification: Phone Reason For Visit: LEFT FEMORAL FRACTURE Diagnosis Discharge Diagnosis (1) Fracture of left hip: Status: Acute Code(s): S72.002A - Fracture of unspecified part of neck of left femur, initial encounter for closed fracture Qualifiers: Encounter type: initial encounter Fracture type: closed Qualified Code(s): S72.002A - Fracture of unspecified part of neck of left femur, initial encounter for closed fracture (2) S/P hip hemiarthroplasty: Status: Acute Code(s): Z96.649 - Presence of unspecified artificial hip joint (3) Hypokalemia: Status: Acute Code(s): E87.6 - Hypokalemia Medications at Discharge Home Medications atorvastatin 10 mg tablet 10 mg PO QDAY 30 Days #30 tab 10/06/17 donepezil 10 mg tablet 10 mg PO DAILY 30 Days #30 10/06/17 imipramine HCl 25 mg tablet 25 mg PO QHS 30 Days #30 tab 10/06/17 levothyroxine 25 mcg tablet 25 mcg PO QDAY 30 Days #30 tab 10/06/17 losartan 100 mg tablet 100 mg PO QDAY 30 Days #30 tab 10/06/17 metoprolol succinate 25 mg tablet,extended release 24 hr 25 mg PO QDAY 30 Days #30 tab 10/06/17 cholecalciferol (vitamin D3) 125 mcg (5,000 unit) capsule 5,000 unit PO .2xweek cap 06/27/19 apixaban 5 mg tablet 2.5 mg PO BID #0 tab 01/14/20 Mirtazapine 45 mg PO DAILY 12/04/20 amlodipine 5 mg PO/SL DAILY 10/01/21 acetaminophen 1,000 mg PO TID #0 tab 10/04/21 doxycycline monohydrate 100 mg PO BID 2 Days #0 cap 10/04/21 oxycodone 5 mg PO Q6H PRN PRN #0 tab 10/04/21 sennosides-docusate sodium [Stool Softener-Stimulant Laxat] 2 tab PO BID PRN #0 tab 10/04/21 Hospital Course Operations None Procedures - (Status post left hip cemented arthroplasty on 10/03/21) Summary of Care Provided Minutes Spent on Discharge: 45 Hospital Course: 86-year-old female who presents after a fall. Patient lives with her granddaughter who had a fall and found her lying on her left side. X- ray of the pelvis and hips showed fracture of the left femoral neck. Orthopedics was consulted from the ED. Patient underwent left hip cemented arthroplasty on 10/03/21. Postoperatively, patient appears stable. No acute event. Her pain was controlled. She was seen by PT and OT and skilled for discharge to custodial facility?TCU. She will follow-up with orthopedics in the outpatient as scheduled. Physical Exam Narrative See progress note of the day Weight / BMI Weight Weight: 71.894 kg Body Mass Index (BMI) 24.0 ABG / Lab / Microbiology Data Result Diagrams: 10/04/21 06:17 10/04/21 06:17 Laboratory: Laboratory Results - last 24 hr 10/04/21 06:17: WBC 6.8, RBC 3.77 L, Hgb 10.6 L, Hct 32.2 L, MCV 85.4, MCH 28.1, MCHC 32.9, RDW Std Deviation 43.3, RDW Coeff of Rony 13.8, Plt Count 206, MPV 10.0, Immature Gran % (Auto) 0.900, Neut % (Auto) 81.7 H, Lymph % (Auto) 12.9 L, [place] % (Auto) 4.4, Eos % (Auto) 0.0, Baso % (Auto) 0.1, Absolute Neuts (auto) 5.6, Absolute Lymphs (auto) 0.88, Nucleated RBC % 0 10/04/21 06:17: Sodium 142, Potassium 4.0, Chloride 111 H, Carbon Dioxide 24.0, Anion Gap 7, BUN 28 H, Creatinine 1.03 H, Estim Creat Clear Calc 36.59, Est GFR (MDRD) Af Amer 66, Est GFR (MDRD) Non-Af 54 L, BUN/Creatinine Ratio 27.2 H, Glucose 145 H, Calcium 8.8 Microbiology: Microbiology 10/01/21 22:53 Urine, Catheterized Urine Culture - Final Coag Negative Staph 10/01/21 22:39 Blood Culture (Wb) - Left Wrist Blood Culture - Preliminary No growth in 48 hours. 10/01/21 22:31 Blood Culture (Wb) - Right Wrist Blood Culture - Preliminary No growth in 48 hours. 10/01/21 22:31 Nasal Secretion SARS-CoV-2 Antigen (Rapid) - Final Radiography Diagnostic Testing: Radiology Impression Hip X-Ray 10/03/21 16:00 IMPRESSION: Interval left hip hemiarthroplasty. No radiographic evidence of hardware complication. 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 Electronically Signed: Irvin Wu MD at 17:48 EST Tel , Service support , D/C Instructions Discharge Diet: 2000 mg Sodium Diet Meaningful Use Info Meaningful Use Diagnoses (Choose all that apply): None applicable Discharge Plan Admission Admit Date/Time: 10/02/21 00:28 Primary Reason for Your Visit: Acute left hip fracture Attending Provider: Luh Stack Primary Care Provider: Rom Burns Consulting Providers: Christiano Ward Discharge Orders/Prescriptions Prescriptions: New sennosides-docusate sodium [Stool Softener-Stimulant Laxat] 8.6-50 mg Tablet 2 tab PO BID PRN (Reason: Constipation) Qty: 0 RF: 0 acetaminophen 500 mg Tablet 1,000 mg PO TID Qty: 0 RF: 0 doxycycline monohydrate 100 mg Capsule 100 mg PO BID 2 Days Qty: 0 RF: 0 oxycodone 5 mg Tablet 5 mg PO Q6H PRN PRN (Reason: Pain Score 6-10) Qty: 0 RF: 0 Continued levothyroxine 25 mcg tablet 25 mcg PO QDAY 30 Days Qty: 30 RF: 0 losartan 100 mg tablet 100 mg PO QDAY 30 Days Qty: 30 RF: 0 metoprolol succinate 25 mg tablet extended release 24 hr 25 mg PO QDAY 30 Days Qty: 30 RF: 0 atorvastatin 10 mg tablet 10 mg PO QDAY 30 Days Qty: 30 RF: 0 imipramine HCl 25 mg tablet 25 mg PO QHS 30 Days Qty: 30 RF: 0 donepezil 10 mg tablet 10 mg PO DAILY 30 Days Qty: 30 RF: 0 cholecalciferol (vitamin D3) 5,000 unit capsule 5,000 unit PO .2xweek RF: 0 Mirtazapine 45 mg PO DAILY RF: 0 amlodipine 5 mg PO/SL DAILY RF: 0 Eliquis 5 mg tablet 2.5 mg PO BID Qty: 0 RF: 0 Referrals / Follow Up: Rom Bruns MD [Primary Care Provider] - Within 2 Weeks Christiano Ward MD [STAFF PHYSICIAN] - Within 2 Weeks (Call for appointment) Disposition Discharge Orders: Discharge Patient (Routine); Ordered 10/04/21 Ordered By: Dr. Luh Stack Charges/Coding Visit Charges Inpatient E&M: 45082 Disch Hosp
--- NOTE | 2021-10-04 17:06 | CASEMGMT ---
Social Work Note For Continuity of Care, this worker placed a call to pt's granddaughter Romi and updated her that pt will be discharged to TCU today. Pt did give permission for RN LAURA To call Romi today to complete initial assessment. Romi states understanding. Plan: TCU today Sarahi Mckinney EMERGENCY MEDICAL SERVICE COORDINATOR, MULTICULTURAL SERVICES LIBRARIAN
== END 2021-10-04 18:46 | disposition home or self-care (01) | DRG 522 ==
LOC: ED 10-02 00:11 → MS3 10-02 03:10
PROVIDERS: Orthopaedic Surgery; Admitting Provider Hospitalist; Emergency Provider Emergency Medicine; PCP Family Medicine; Visit Provider Internal Medicine
PROC: 0SRS0J9 Replacement of Left Hip Joint, Femoral Surface with Synthetic Substitute, Cemented, Open Approach (ICD-10-PCS; CPT 27125; principal; 2021-10-03 13:00)
DX: M80.052A Age-related osteoporosis with current pathological fracture, left femur, initial encounter for fracture (principal); N30.00 Acute cystitis without hematuria; D62 Acute posthemorrhagic anemia; S00.83XA Contusion of other part of head, initial encounter; W19.XXXA Unspecified fall, initial encounter; Z91.81 History of falling; Y93.9 Activity, unspecified; Y92.9 Unspecified place or not applicable; E87.6 Hypokalemia; B95.8 Unspecified staphylococcus as the cause of diseases classified elsewhere; E03.9 Hypothyroidism, unspecified; R55 Syncope and collapse; E78.5 Hyperlipidemia, unspecified; G30.9 Alzheimer's disease, unspecified; F02.80 Dementia in other diseases classified elsewhere, unspecified severity, without behavioral disturbance, psychotic disturbance, mood disturbance, and anxiety; I25.2 Old myocardial infarction; I48.0 Paroxysmal atrial fibrillation; I12.9 Hypertensive chronic kidney disease with stage 1 through stage 4 chronic kidney disease, or unspecified chronic kidney disease; N18.32 Chronic kidney disease, stage 3b; M47.812 Spondylosis without myelopathy or radiculopathy, cervical region; Z79.01 Long term (current) use of anticoagulants; Z79.899 Other long term (current) drug therapy; Z20.822 Contact with and (suspected) exposure to COVID-19
CPT/HCPCS: 36415; 70450; 71045; 72125; 73502; 73560; 80048; 81001; 85025; 85610; 85730; 86850; 86900; 86901; 87040; 87077; 87086; 87088; 87186; 87426; 87635; 88305; 88307; 88311; 93005; 94762; 97162; 97166; 99251; 99285; C1776; J7030; J7040; J7120; U0005; A4216; G0463; J2405; U0003

== ENCOUNTER 2021-10-04 18:45 | Inpatient (IN) | payer MEDICARE, OTHER, SELFPAY ==
--- NOTE | 2021-10-04 20:06 | HP.PCM_ITS ---
HPI - General General Date of Admission: 10/04/21 HPI Narrative 10/01/2021 KYLEE LORA, is a 86 Female who presents to [facility] Emergency Department with fall. Chest X-ray negative, CT head negative, CT cervical spine negative. UA consistent with urinary tract infection, urine culture sent, Rocephin given. X-ray shows left hip fracture. Rapid covid19 negative. 10/02/2021 Admit to Hospital. Hold Eliquis, prepare for surgery. PT/OT for debility. Tylenol, Oxycodone for pain. Rocephin for urinary tract infection. Lovenox twice daily for atrial fibrillation. 10/03/2021 Dr. Christiano Ward performed left hip cemented hemiarthroplasty. 10/04/2021 Pain controlled. Urinary retention required crawford catheter placement. 10/04/2021 Admit to TCU with debility, here for rehabilitation, strengthening, prior to discharge home with granddaughter. [facility] Medical History (Updated 10/04/21 @ 20:[address] David Bobo MD) Dementia Essential (primary) hypertension Fatigue Hyperlipidemia Hypothyroidism Paroxysmal atrial fibrillation Home Medications atorvastatin 10 mg tablet 10 mg PO QDAY 30 Days #30 tab 10/06/17 [History Last Taken Unknown] donepezil 10 mg tablet 10 mg PO DAILY 30 Days #30 10/06/17 [History Last Taken Unknown] imipramine HCl 25 mg tablet 25 mg PO QHS 30 Days #30 tab 10/06/17 [History Last Taken Unknown] levothyroxine 25 mcg tablet 25 mcg PO QDAY 30 Days #30 tab 10/06/17 [History Last Taken Unknown] losartan 100 mg tablet 100 mg PO QDAY 30 Days #30 tab 10/06/17 [History Last Taken Unknown] metoprolol succinate 25 mg tablet,extended release 24 hr 25 mg PO QDAY 30 Days #30 tab 10/06/17 [History Last Taken Unknown] cholecalciferol (vitamin D3) 125 mcg (5,000 unit) capsule 5,000 unit PO .2xweek cap 06/27/19 [History Last Taken Unknown] Mirtazapine 45 mg PO DAILY 12/04/20 [History Last Taken Unknown] amlodipine 5 mg PO/SL DAILY 10/01/21 [History Last Taken Unknown] Eliquis 2.5 mg PO BID 10/04/21 [History Last Taken Unknown] acetaminophen 1,000 mg PO TID 10/04/21 [History Last Taken Unknown] doxycycline monohydrate 100 mg PO BID 10/04/21 [History Last Taken 10/04/21] oxycodone 5 mg PO Q6H PRN PRN #0 tab 10/04/21 [Rx Last Taken Unknown] sennosides-docusate sodium [Stool Softener-Stimulant Laxat] 2 tab PO BID PRN #0 tab 10/04/21 [Rx Last Taken Unknown] Allergy/AdvReac Type Severity Reaction Status Date / Time No Known Allergies Allergy Verified 09/25/21 14:09 Family History Brother CAD (coronary artery disease) Myocardial infarction in his 40s Mother Dementia Surgical History (Updated 10/04/21 @ 20:[address] David Bobo MD) History of hysterectomy History of left hip hemiarthroplasty Social History (Updated 10/04/21 @ 20:[address] David Bobo MD) household members: other details: Granddaughter. Smoking Status: Never smoker alcohol intake: never substance use type: does not use caffeine: Yes Type: tea what type of physical activity do you participate in: none seatbelt use: always do you feel safe at home: Yes ROS Constitutional Constitutional: Denies chills, fever(s) or weight gain ENT HEENT: Denies headache(s), nasal congestion or nasal discharge Cardiovascular Cardiovascular: Denies chest pain or palpitations Respiratory/Chest Respiratory/Chest: Denies cough, excessive phlegm production or shortness of breath with exertion Gastrointestinal Gastrointestinal: Denies abdominal pain, nausea or vomiting Genitourinary Genitourinary: Denies dysuria Musculoskeletal Musculoskeletal: Denies joint pain or joint swelling Integumentary Integumentary: Denies rash or wounds Neurologic Neurologic: Denies focal weakness, numbness or tingling Psychiatric Psychiatric: Denies anxiety, auditory hallucinations, depression, homicidal ideation or suicidal ideation Physical Exam Const alert and oriented x3 General Appearance: cooperative HEENT normocephalic Eyes PERRL and EOMs intact bilaterally Neck supple, no JVD and no carotid bruits Resp normal respiratory effort, normal air movement and clear to auscultation bilaterally Cardio regular rate and regular rhythm GI normal to inspection, nondistended, normoactive bowel sounds, non-tender and non-distended Extremity normal capillary refill General Extremity: Negative for edema Skin no rashes or lesions noted General Skin Exam: no breakdown Psych affect normal Appearance: appropriate Results Lab / Micro Data Result Diagrams: 10/05/21 05:29 10/05/21 05:29 Assessment & Plan Assessment/Plan (1) Debility: (2) Closed left hip fracture: (3) Urinary tract infection: (4) Hypertension: (5) Hypothyroidism: (6) Atrial fibrillation: (7) Alzheimer disease: (8) Insomnia: (9) Vitamin D deficiency: (10) Appetite loss: PLAN: 86 year old female with below past medical history hospitalized for left hip fracture, underwent left hip hemiarthroplasty 10/03/[address] Christiano Ward, complicated by urinary tract infection, urinary retention, admitted to TCU with debility, here for rehabilitation, strengthening, prior to discharge home with granddaughter. * Debility - PT/OT. * Pain - Tylenol 1000mg tid, Oxycodone 5mg q4h prn pain (6-10). * Bowel - Miralax 17gm daily, senna/colace 2 tablets bid, Dulcolax 10mg daily prn. * Adult immunization - Administer prevnar 13, pneumovax 23, fluzone, covid19 va ccine as appropriate. * DVT prophylaxis - Not necessary, on Eliquis. * Hypertension - Metoprolol succinate 25mg daily, Losartan 100mg daily, Amlodipine 5mg daily. * Atrial fibrillation - Metoprolol succinate 25mg daily, Eliquis 2.5mg bid. * Hyperlipidemia - Atorvastatin 10mg qhs. * Vitamin D deficiency - D3 25mcg daily. * Alzheimer's Disease - Donepezil 10mg qhs. * Urinary tract infection - Doxycycline 100mg bid thru 10/06/2021. 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 * Hypothyroidism - Levothyroxine 25mg daily. * Depression/Appetite loss - Mirtazapine 45mg qhs.
[2021-10-04 21:00] VITALS: PULSE 61; RESP 16; O2SAT 96
--- NOTE | 2021-10-04 21:08 | NURSING ---
Unable to complete admission paperwork due to cognition. Patient presents as alert and oriented to person/place, unable to states correct month or year, poor historian, unable to recall reason for admission, states I'm not sure, I just know it hurts here while pointing to LLE
[2021-10-04 21:18] VITALS: BMI 26.2
[2021-10-04] MEDS: APIXABAN 2.5 MG TABLET PO (21:29)
[2021-10-04] MEDS: Donepezil HCl 10 MG Tablet PO (21:35)
[2021-10-04] MEDS: Acetaminophen 500 MG Tablet 1000 MG PO (21:35)
[2021-10-04] MEDS: Imipramine HCl 25 MG Tablet PO (21:35)
[2021-10-04] MEDS: Mirtazapine 15 MG Tablet 45 MG PO (21:35)
[2021-10-04] MEDS: oxyCODONE 5 MG Tablet PO (21:44)
[2021-10-04] MEDS: Atorvastatin Calcium 10 MG Tablet PO (21:45)
[2021-10-04] MEDS: Senna/Docusate Sodium 1 Tablet 2 TABLET PO (21:45)
[2021-10-04 22:00] VITALS: BP 144/60; PULSE 61; RESP 16; TEMP 36.5; O2SAT 95
[2021-10-05] VITALS (9 sets, daily range): BP systolic 105–159; BP diastolic 57–85; PULSE 68–99; RESP 14–18; TEMP 36.4–36.8; O2SAT 93–95
[2021-10-05] MEDS: Polyethylene Glycol 3350 17 GM PACKET PO (05:49)
[2021-10-05] MEDS: Acetaminophen 500 MG Tablet 1000 MG PO ×3 (05:50→22:40)
[2021-10-05] MEDS: Doxycycline 100 MG CAPSULE PO ×2 (05:51→17:51)
[2021-10-05] MEDS: amLODIPine 5 MG Tablet PO (05:51)
[2021-10-05] MEDS: Metoprolol(XL)Succ 25 MG Tablet PO (05:51)
[2021-10-05] MEDS: Senna/Docusate Sodium 1 Tablet 2 TABLET PO ×2 (05:52→17:51)
[2021-10-05] MEDS: Levothyroxine 25 MCG TABLET PO (05:52)
[2021-10-05] MEDS: Losartan Potassium 100 MG Tablet PO (05:53)
[2021-10-05] MEDS: Cholecalciferol (VIT D3) 25 MCG TABLET (1,000 UNITS) PO (05:53)
[2021-10-05 06:04] LABS: Absolute Lymphocyte Count 1.73 X10^3/uL (0.83-4.51); Basophil# 0.02 X10^3/uL; Basophil% 0.3 % (0-1); Eosinophil# 0.02 X10^3/uL; Eosinophils% 0.3 % (0-5); Hematocrit 31.3 % (37-47); Hemoglobin 10.2 g/dL (12.0-15.0); Lymphocyte # 1.73 X10^3/ul (0.83-4.51); Lymphocyte % 23.7 % (19-41); Mean Corp Hgb Conc 32.6 g/dL (32-36); Mean Corpuscular Hgb 27.6 pg (27.0-32.0); Mean Corpuscular Volume 84.8 fL (81-99); Monocyte# 0.45 X10^3/uL; Monocyte% 6.2 % (0-10); NRBC Flagged by Analyzer 0 % (0-5); Neutrophil # 5.03 X10^3/uL (2.7-7.7); Neutrophil % 68.7 % (47-70); Platelet Count 257 K/mm3 (150-450); RBC Distribution Width CV 13.8 % (11.6-14.6); RBC Distribution Width SD 43.2 fl (35.1-43.9); Red Blood Count 3.69 M/mm3 (4.2-5.4); White Blood Count 7.3 K/mm3 (4.4-11.0)
[2021-10-05 06:28] LABS: Anion Gap 8 (5-15); BUN 34 mg/dL (7-18); BUN/Creat Ratio 35.6 RATIO (10-20); Calcium,Total 9.7 mg/dL (8.5-10.1); Chloride 111 mmol/L (98-107); Creatinine, Serum 0.95 mg/dL (0.55-1.02); EST Glomerular Filtration Rate 59 mL/min (>60); Est Glom Filt Rate - Afr Amer 72 mL/min (>60); Estimated Creatinine Clearance 39.67 ml/min; Glucose 111 mg/dL (74-106); Potassium 3.1 mmol/L (3.5-5.1); Sodium Level 144 mmol/L (136-145)
[2021-10-05] MEDS: APIXABAN 2.5 MG TABLET PO ×2 (09:16→19:59)
[2021-10-05] MEDS: Tuberculin,Purif.prot.deriv. 50 TU/ML Vial 0.1 ML ID (11:17)
[2021-10-05] MEDS: Potassium Chloride Oral Tablet 20 MEQ 40 MEQ PO (11:44)
--- NOTE | 2021-10-05 16:07 | PHA.CONS1_ITS ---
Progress Note - Pharmacy Subjective: TCU Admission Objective: Allergies No Known Allergies Allergy (Verified 09/25/21 14:09) Current Medications Generic Name Dose Route Start Last Admin Trade Name Josué PRN Reason Stop Dose Admin Acetaminophen 1,000 mg 10/04/21 22:00 10/05/21 13:39 Acetaminophen 500 Mg Tablet PO 1,000 mg TID DIONTE Administration Amlodipine Besylate 5 mg 10/05/21 06:00 10/05/21 05:51 Amlodipine 5 Mg Tablet PO 5 mg DAILY DIONTE Administration Apixaban 2.5 mg 10/04/21 20:00 10/05/21 09:16 Apixaban 2.5 Mg Tablet PO 2.5 mg 799,1999 DIONTE Administration Atorvastatin Calcium 10 mg 10/04/21 22:00 10/04/21 21:45 Atorvastatin Calcium 10 Mg Tablet PO 10 mg QHS DIONTE Administration Bisacodyl 10 mg 10/04/21 20:17 Bisacodyl 5 Mg Tablet PO DAILY PRN Constipation COVID-19 Vaccine mRNA LNP-S (MOD) (PF) 50 mcg 10/06/21 11:00 Covid-19 Mrna Moderna Booster 50 Mcg/0.25 Ml Syringe IM 10/06/21 11:01 .ONCE ONE Cholecalciferol 25 mcg 10/05/21 06:00 10/05/21 05:53 Cholecalciferol (Vit D3) 25 Mcg Tablet (1,000 Units) PO 25 mcg DAILY DIONTE Administration Donepezil HCl 10 mg 10/04/21 22:00 10/04/21 21:35 Donepezil Hcl 10 Mg Tablet PO 10 mg QHS DIONTE Administration Doxycycline Monohydrate 100 mg 10/05/21 06:00 10/05/21 05:51 Doxycycline 100 Mg Capsule PO 10/06/21 23:00 100 mg BID DIONTE Administration Imipramine HCl 25 mg 10/04/21 22:00 10/04/21 21:35 Imipramine Hcl 25 Mg Tablet PO 25 mg QHS DIONTE Administration Levothyroxine Sodium 25 mcg 10/05/21 06:00 10/05/21 05:52 Levothyroxine 25 Mcg Tablet PO 25 mcg DAILY@0600 DIONTE Administration Losartan Potassium 100 mg 10/05/21 06:00 10/05/21 05:53 Losartan Potassium 100 Mg Tablet PO 100 mg DAILY DIONTE Administration Metoprolol Succinate 25 mg 10/05/21 06:00 10/05/21 05:51 Metoprolol(Xl)Succ 25 Mg Tablet PO 25 mg DAILY DIONTE Administration Mirtazapine 45 mg 10/04/21 22:00 10/04/21 21:35 Mirtazapine 15 Mg Tablet PO 45 mg QHS DIONTE Administration Nutritional Formula (Lactose Free) 118 ml 10/05/21 17:00 Ensure Compact 118 Ml Liquid PO 4X/DAY DIONTE Oxycodone HCl 5 mg 10/04/21 20:18 10/04/21 21:44 Oxycodone 5 Mg Tablet PO 5 mg Q4H PRN Administration Pain Score 6-10 Polyethylene Glycol 17 gm 10/05/21 06:00 10/05/21 05:49 Polyethylene Glycol 3350 17 Gm Packet PO 17 gm DAILY DIONTE Administration Potassium Chloride 20 meq 10/06/21 08:00 Potassium Chloride Oral Tablet 20 Meq PO DAILYCM DIONTE Senna/Docusate Sodium 2 tablet 10/04/21 20:30 10/05/21 05:52 Senna/Docusate Sodium 1 Tablet PO 2 tablet BID DIONTE Administration Tuberculin PPD 0.1 ml 10/12/21 10:00 Tuberculin,Purif.Prot.Deriv. 50 Tu/Ml Vial ID 10/12/21 10:01 X1 ONE Problem List (Last Reviewed 10/04/21 @ 20:[address] David Bobo MD) Appetite loss (Acute) Vitamin D deficiency (Acute) Insomnia (Acute) Alzheimer disease (Acute) Atrial fibrillation (Acute) Hypothyroidism (Acute) Hypertension (Chronic) Urinary tract infection (Acute) Closed left hip fracture (Acute) Debility (Acute) Vital Signs Temp Pulse Resp BP Pulse Ox 97.7 F L 68 16 142/79 H 95 10/04/21 22:00 10/05/21 05:51 10/05/21 05:00 10/05/21 05:51 10/05/21 07:30 Oxygen Flow Rate (L/min) 1 Oxygen Delivery Method Room Air Weight: 71.668 kg Body Mass Index (BMI) 26.2 Sodium 144 mmol/L (136-145) 10/05/21 05:29 Potassium 3.1 mmol/L (3.5-5.1) L 10/05/21 05:29 Chloride 111 mmol/L (98-107) H 10/05/21 05:29 Carbon Dioxide 25.0 mmol/L (21.0-32.0) 10/05/21 05:29 Anion Gap 8 (5-15) 10/05/21 05:29 BUN 34 mg/dL (7-18) H 10/05/21 05:29 Creatinine 0.95 mg/dL (0.55-1.02) 10/05/21 05:29 Est GFR (MDRD) Af Amer 72 mL/min (>60) 10/05/21 05:29 Est GFR (MDRD) Non-Af 59 mL/min (>60) L 10/05/21 05:29 BUN/Creatinine Ratio 35.6 RATIO (10-20) H 10/05/21 05:29 Glucose 111 mg/dL (74-106) H 10/05/21 05:29 Assessment/Plan: 1. Pain: acetaminophen 1000mg PO TID and oxycodone 5mg PO Q4H PRN pain 6-07/11. Please continue to monitor for increased pain, PRN usage, constipation and respiratory depression. 2. UTI: doxycycline 100mg PO BID thru 10/06/21. Please continue to monitor for urinary symptoms, S/S of infection and diarrhea. *3. Hypertension/atrial fibrillation: metoprolol succinate 25mg PO daily, losartan 100mg PO daily, amlodipine 5mg PO daily and apixaban 2.5mg PO BID. Please consider changing apixaban to 5mg PO BID. Patient only meets 1 criteria for the lower dose if clinically appropriate (age >80, but weight is >60kg and SCr is <1.5mg/dL). Thanks. Please continue to monitor for S/S of bleeding, hem oglobin (last 10.2g/dL), HR (last 68), BP (last 142/79), renal function and swelling. *4. Hyperlipidemia: atorvastatin 10mg PO QHS. Please consider ordering a lipid panel if clinically appropriate. Last panel from 10/14/19. Thanks. Please continue to monitor for muscle pain. *5. Hypothyroidism: levothyroxine 25mcg PO daily. Please consider ordering a TSH if clinically appropriate. Last TSH from 10/14/19. Thanks. Please continue to monitor for S/S hypo/hyperthyroidism. 6. Alzheimer's disease: donepezil 10mg PO QHS. Please continue to monitor for GI side effects and S/S of Alzheimer's. Psychotropic Medications: 1. Insomnia: imipramine 25mg PO QHS. Please see physician note regarding GDR. Please continue to monitor for anticholinergic side effects (medication is on BEERs list for this.) 2. Depression/appetite loss: mirtazapine 45mg PO QHS. Poor PO intake per director of construction note. GDR not appropriate. *Unnecessary Medications: cholecalciferol 25mcg PO daily. I did not see a documented indication for this medication. Please consider updating note with indication and ordering a vitamin D level if clinically appropriate (no level in chart.) Thanks. Bowel Regimen: Miralax 17gm PO daily, senna/docusate 2T PO BID and bisacodyl 10mg PO daily PRN constipation. Please continue to monitor for constipation and PRN usage. Date of Note:: 10/05/21
--- NOTE | 2021-10-05 21:50 | RAD_ITS ---
INDICATION: coarse crackles bilateral lower lobes EXAMINATION/TECHNIQUE: X-RAY - XR Chest 1 View COMPARISON: 10/01/2021 chest x-ray FINDINGS: LINES/DEVICES: None. LUNGS: Symmetric normal lung volumes. No airspace opacity or abnormal interstitial pattern. No nodule or mass. No pleural effusion or pneumothorax. MEDIASTINUM AND CARDIOVASCULAR STRUCTURES: Normal size and contour of the cardiomediastinal silhouette. No evidence of pulmonary vascular congestion. BONES AND SOFT TISSUES: No abnormality within limits of the exam. RAD/Chest 1 View (Portable) IMPRESSION: 1. No radiographic evidence of acute cardiopulmonary disease. Electronically Signed: Abdias Alexander DO at 23:16 EST Tel , Service support ,
--- NOTE | 2021-10-05 22:07 | NURSING ---
N.O. for chest xray from Dr. Bobo due to coarse crackles bilat lower lobes. Spo2 observed 84% on RA, O2 applied at 2L, Spo2 increased to 94%. No resp distress observed or reported. Resps even and unlabored. Intermittent non-productive cough.
[2021-10-05] MEDS: Atorvastatin Calcium 10 MG Tablet PO (22:40)
[2021-10-05] MEDS: Mirtazapine 15 MG Tablet 45 MG PO (22:40)
[2021-10-05] MEDS: Imipramine HCl 25 MG Tablet PO (22:40)
[2021-10-05] MEDS: Donepezil HCl 10 MG Tablet PO (22:40)
--- NOTE | 2021-10-05 23:30 | RAD_ITS ---
HISTORY: fall from bed COMPARISON: October 03, 2021 FINDINGS: # of images incl. paperwork: 4 XR Hip Unilateral with Pelvis when performed; 2-3 Views: AP pelvis with AP and frog leg left hip SOFT TISSUES: Left lateral hip postsurgical edema and subcutaneous emphysema with skin fredy. No radiodense soft tissue foreign body. Pelvic phleboliths. OSSEOUS: No fracture. Normal osseous alignment. Left hip arthroplasty in expected position without angeles-hardware lucency or evidence of hardware failure. Moderate lumbar spondylosis. Normal symmetric sacroiliac and pubic symphysis alignment. Normal right hip alignment with mild joint space narrowing. BONE MINERALIZATION: Unremarkable. RAD/HIP, UNI W/ Pelvis 2-3 Views IMPRESSION: Left hip arthroplasty surgical changes without evidence of hardware failure. No evidence of acute osseous injury. at 0106 Reported and signed by: Hernan Mckinney MD Electronically Signed: Hernan Mckinney MD at 1:04 EST Tel , Service support ,
--- NOTE | 2021-10-06 00:08 | NURSING ---
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 Staff alerted. Patient stated that she was trying to go to bathroom, fell. She stated that she did not think she hit head. Skin tear noted to arm. Call to Dr. Bobo regarding fall and recent hip surgery. X-ray ordered for left hip to ensure proper placement. Neurochecks initiated. Pressure alarm placed in bed. Patient assisted up from floor using mechanical lift and 2 assist. Family notified. Will continue to monitor.
[2021-10-06] MEDS: oxyCODONE 5 MG Tablet PO ×2 (00:45→14:40)
--- NOTE | 2021-10-06 00:48 | NURSING ---
Presents in bed. Eyes closed. Responds to verbal stimuli. A&Ox2 to person/place per baseline. Able to voice needs. No restlessness observed. Pleasant and cooperative. Resps even and unlabored. PRN Oxy administered per order for left hip pain. No inward/outward rotation observed to any extremity. Active ROM x4 extremities. Hand grasps strong and equal. Pupils equal and reactive. VSS. Neurochecks maintained per order. No distress observed or reported. Pressure alarm in place per order and functioning properly. [place] cath patent, draining via gravity clear yellow urine. Denies further requests. Call light in reach.
[2021-10-06 01:00] VITALS: BP 164/71; PULSE 97; RESP 14; TEMP 37.1; O2SAT 94
[2021-10-06 05:07] VITALS: BP 132/59; PULSE 88; RESP 14; TEMP 36.3; O2SAT 96
[2021-10-06] MEDS: Cholecalciferol (VIT D3) 25 MCG TABLET (1,000 UNITS) PO (05:10)
[2021-10-06 05:11] VITALS: BP 132/59; PULSE 87
[2021-10-06] MEDS: Metoprolol(XL)Succ 25 MG Tablet PO (05:11)
[2021-10-06] MEDS: Polyethylene Glycol 3350 17 GM PACKET PO (05:11)
[2021-10-06] MEDS: Senna/Docusate Sodium 1 Tablet 2 TABLET PO ×2 (05:11→17:27)
[2021-10-06] MEDS: Levothyroxine 25 MCG TABLET PO (05:11)
[2021-10-06] MEDS: Losartan Potassium 100 MG Tablet PO (05:11)
[2021-10-06] MEDS: Menthol/Lanolin/Calamine/Znox 113 GM Tube 1 APPLIC TOPICAL ×2 (05:11→17:27)
[2021-10-06] MEDS: amLODIPine 5 MG Tablet PO (05:11)
[2021-10-06] MEDS: Doxycycline 100 MG CAPSULE PO ×2 (05:11→17:26)
[2021-10-06] MEDS: Acetaminophen 500 MG Tablet 1000 MG PO ×3 (05:11→21:13)
[2021-10-06 06:40] VITALS: O2SAT 96
[2021-10-06] MEDS: APIXABAN 2.5 MG TABLET PO ×2 (08:10→19:32)
[2021-10-06] MEDS: Potassium Chloride Oral Tablet 20 MEQ PO (08:10)
--- NOTE | 2021-10-06 09:06 | NURSING ---
Addendum entered by Ansley Stanton 10/06/21 13:13: Attempted to call son, Cam to answer Covid questionare. Unable to reach him. Called granddaughter, Romi. She states she recently tested negative for covid and then retested a bit later and was positive. She is concerned that this will be the same situation for her grandmother. Instructed that resident will be tested tomorrow. Granddaughter would like us to wait for covid results tomorrow before we administer covid vaccine. Ankush in pharmacy called in regards to this and vaccine will be sent back to pharmacy. Original Note: spoke with son and did get consent to administer covid booster today.
[2021-10-06 14:27] VITALS: BP 121/53; PULSE 85; RESP 16; TEMP 36.6; O2SAT 98
--- NOTE | 2021-10-06 14:32 | NURSING ---
Resident and son, Cam, notified of 3 staff members testing positive for COVID.
--- NOTE | 2021-10-06 14:37 | NURSING ---
Addendum entered by Starr Tavera 10/06/21 14:59: 2 granddaughters here, Romi and Kenya. Original Note: granddaughter, Romi here and signed admit papers. Confirmed pt is a DNRCC.
--- NOTE | 2021-10-06 16:00 | CASEMGMT ---
Social Work SW met with pt to complete psychosocial assessment. Pt is in room with two grand daughters present who assisted with answering questions correctly. Pt does have dementia and was unable to answer some questions and could answer others. Phone call placed to pt son Jose David who is HCPOA and completed psychosocial assessment. SW did not complete MOLST with pt due to cognitive impairment. Pt is living in her home with her grand daughter Kenya. Pt son Jose David feels pt would benefit from placement, however pt has been resistant to this in the past. SW will continue to follow for d/c planning and support. CANDY Malik
--- NOTE | 2021-10-06 16:05 | CASEMGMT ---
Advance Directives - Health Care POA Pt does have a Living Will and Health Care POA on file at [facility]. Order of Health Care POA is as follows: 1. Jose David Sweeney Sr, - 2. Jose David Sweeney Jr, Son - [facility] health Care POA 3. Abdias [place]ndell, Son - [facility] Health Care POA 4. Charles Patel, Son - [facility] Care POA SW spoke with Jose David Sweeney Jr. who confirms the decision making for pt should be followed as outlined in HCPOA and as listed above. Demographic sheet updated and nursing informed. CANDY Malik
--- NOTE | 2021-10-06 17:55 | NURSING ---
Resident with crawford catheter placed 10/03/21 after urinary retention post op. Message left for Dr Bobo if he would like to start voiding trials.
--- NOTE | 2021-10-06 17:55 | NURSING ---
verified code status with Fritz, son. He wants her to be a full code at this time.
[2021-10-06] MEDS: Mirtazapine 15 MG Tablet 45 MG PO (21:12)
[2021-10-06] MEDS: Atorvastatin Calcium 10 MG Tablet PO (21:12)
[2021-10-06] MEDS: Donepezil HCl 10 MG Tablet PO (21:12)
[2021-10-06] MEDS: Imipramine HCl 25 MG Tablet PO (21:13)
[2021-10-07] VITALS (7 sets, daily range): BP systolic 119–150; BP diastolic 47–59; PULSE 87–91; RESP 16–18; TEMP 36.3–36.8; O2SAT 94–97
[2021-10-07] MEDS: Polyethylene Glycol 3350 17 GM PACKET PO (05:11)
[2021-10-07] MEDS: Losartan Potassium 100 MG Tablet PO (05:12)
[2021-10-07] MEDS: Senna/Docusate Sodium 1 Tablet 2 TABLET PO ×2 (05:12→16:52)
[2021-10-07] MEDS: Acetaminophen 500 MG Tablet 1000 MG PO ×3 (05:12→21:59)
[2021-10-07] MEDS: amLODIPine 5 MG Tablet PO (05:12)
[2021-10-07] MEDS: Metoprolol(XL)Succ 25 MG Tablet PO (05:13)
[2021-10-07] MEDS: Levothyroxine 25 MCG TABLET PO (05:13)
[2021-10-07] MEDS: Menthol/Lanolin/Calamine/Znox 113 GM Tube 1 APPLIC TOPICAL ×2 (05:13→16:52)
[2021-10-07] MEDS: Cholecalciferol (VIT D3) 25 MCG TABLET (1,000 UNITS) PO (05:13)
[2021-10-07 06:06] LABS: Anion Gap 3 (5-15); BUN 23 mg/dL (7-18); BUN/Creat Ratio 33.6 RATIO (10-20); Calcium,Total 9.3 mg/dL (8.5-10.1); Chloride 107 mmol/L (98-107); Creatinine, Serum 0.68 mg/dL (0.55-1.02); EST Glomerular Filtration Rate 87 mL/min (>60); Est Glom Filt Rate - Afr Amer 105 mL/min (>60); Estimated Creatinine Clearance 37.68 ml/min; Glucose 103 mg/dL (74-106); Potassium 3.8 mmol/L (3.5-5.1); Sodium Level 141 mmol/L (136-145)
[2021-10-07] MEDS: APIXABAN 2.5 MG TABLET PO ×2 (07:52→22:00)
[2021-10-07] MEDS: Potassium Chloride Oral Tablet 20 MEQ PO (07:52)
--- NOTE | 2021-10-07 11:30 | NURSING ---
Notified Dr. Bobo of pt testing positive for covid.
--- NOTE | 2021-10-07 12:01 | NURSING ---
Spoke with JEREMIAH Forte. He stated he does not want his mother to have the Pneumonia vaccine or covid-19 booster until she recovers from covid. He also gave this nurse permission to contact family and make them aware that the patient is covid positive.
--- NOTE | 2021-10-07 17:01 | NURSING ---
R' CURRENTLY IN R/C WATCHING TV. DENIES PAIN/NEEDS. VS OBTAINED. ELEVATED LEGS FOR COMFORT. SLIGHT COUGH NOTED. O2 IN PLACE AT 2L. CALL LIGHT IN REACH. WILL MONITOR.
[2021-10-07] MEDS: Mirtazapine 15 MG Tablet 45 MG PO (21:59)
[2021-10-07] MEDS: Imipramine HCl 25 MG Tablet PO (21:59)
[2021-10-07] MEDS: Donepezil HCl 10 MG Tablet PO (21:59)
[2021-10-07] MEDS: Atorvastatin Calcium 10 MG Tablet PO (21:59)
[2021-10-07] MEDS: 0.9% Saline Lock 10 ML Syringe IV (22:09)
[2021-10-08 00:30] VITALS: BP 129/57; PULSE 86; RESP 16; TEMP 36.6; O2SAT 93
[2021-10-08 04:45] VITALS: BP 121/51; PULSE 97; RESP 20; TEMP 36.5
[2021-10-08] MEDS: Cholecalciferol (VIT D3) 25 MCG TABLET (1,000 UNITS) PO (05:01)
[2021-10-08] MEDS: Acetaminophen 500 MG Tablet 1000 MG PO ×3 (05:01→22:58)
[2021-10-08] MEDS: Losartan Potassium 100 MG Tablet PO (05:01)
[2021-10-08] MEDS: Senna/Docusate Sodium 1 Tablet 2 TABLET PO ×2 (05:01→17:58)
[2021-10-08 05:02] VITALS: BP 121/51; PULSE 97
[2021-10-08] MEDS: Levothyroxine 25 MCG TABLET PO (05:02)
[2021-10-08] MEDS: Metoprolol(XL)Succ 25 MG Tablet PO (05:02)
[2021-10-08] MEDS: Polyethylene Glycol 3350 17 GM PACKET PO (05:02)
[2021-10-08] MEDS: amLODIPine 5 MG Tablet PO (05:02)
[2021-10-08] MEDS: Menthol/Lanolin/Calamine/Znox 113 GM Tube 1 APPLIC TOPICAL ×2 (05:21→17:58)
--- NOTE | 2021-10-08 05:27 | NURSING ---
Patient received infusion of monoclonal antibodies. Administered at 310mL/hour over 22 minutes via peripheral IV located in right AC. Vitals obtained prior, during and after antibody infusion. All VS remained WNL. Patient denies any pain, discomfort with infusion. No s/s of adverse reaction noted. Continues to receive NS 0.9% 15mL/hour. IV site remains patent, no signs of infiltration or irritation. Will continue to monitor.
[2021-10-08 07:26] VITALS: O2SAT 93
[2021-10-08] MEDS: Potassium Chloride Oral Tablet 20 MEQ PO (08:57)
[2021-10-08] MEDS: APIXABAN 2.5 MG TABLET PO ×2 (08:57→22:59)
[2021-10-08 10:00] VITALS: RESP 18; O2SAT 94
[2021-10-08] MEDS: Dextrose 5%-0.2% NS 1,000 ML 75 ML IV (14:56)
[2021-10-08] MEDS: 0.9% Saline Lock 10 ML Syringe IV (14:56)
[2021-10-08 15:30] VITALS: BP 144/61; PULSE 86; RESP 18; TEMP 36.5; O2SAT 94
[2021-10-08] MEDS: Nystatin Powder 15gm Bottle 1 APPLIC TOPICAL (17:59)
[2021-10-08] MEDS: Imipramine HCl 25 MG Tablet PO (22:58)
[2021-10-08] MEDS: Mirtazapine 15 MG Tablet 45 MG PO (22:59)
[2021-10-08] MEDS: Atorvastatin Calcium 10 MG Tablet PO (22:59)
[2021-10-08] MEDS: Donepezil HCl 10 MG Tablet PO (22:59)
[2021-10-09] VITALS (8 sets, daily range): BP systolic 102–145; BP diastolic 50–62; PULSE 78–91; RESP 16–28; TEMP 36.6–36.8; O2SAT 89–97
[2021-10-09] MEDS: 0.9% Saline Lock 10 ML Syringe IV (01:04)
--- NOTE | 2021-10-09 01:32 | NURSING ---
PT INCONTINENT FOR LARGE AMT OF URINE-BLADDER SCANNED FOR 73 ML URINE. ATTENDS CHANGED AND JANE APPLIED TO REDDENED BUTTOCKS.
[2021-10-09] MEDS: Dextrose 5%-0.2% NS 1,000 ML 75 ML IV ×2 (02:48→17:56)
--- NOTE | 2021-10-09 03:17 | NURSING ---
PT RESTING WITH EYES CLOSED. AWAKENS EASILY. ATTENDS CHECKED AND FOUND TO BE DRY. NOTED RESPIRATION RATE HAS INCREASED. PULSE OX AT 89% ON 2 LPM PER N/C. PT DENIES SOB AND TALKS EASILY. VITAL SIGNS OBTAINED. O2 FLOW RATE INCREASED UNTIL OX IS 93 % OF 4 LPM N/C. HUMIDIFICATION ADDED TO O2 FLOWMETER.
[2021-10-09] MEDS: Levothyroxine 25 MCG TABLET PO (05:13)
[2021-10-09] MEDS: Cholecalciferol (VIT D3) 25 MCG TABLET (1,000 UNITS) PO (05:13)
[2021-10-09] MEDS: Metoprolol(XL)Succ 25 MG Tablet PO (05:13)
[2021-10-09] MEDS: Acetaminophen 500 MG Tablet 1000 MG PO ×3 (05:13→22:57)
[2021-10-09] MEDS: Nystatin Powder 15gm Bottle 1 APPLIC TOPICAL ×2 (05:14→14:29)
[2021-10-09] MEDS: Senna/Docusate Sodium 1 Tablet 2 TABLET PO (05:14)
[2021-10-09] MEDS: Polyethylene Glycol 3350 17 GM PACKET PO (05:14)
[2021-10-09] MEDS: amLODIPine 5 MG Tablet PO (05:14)
[2021-10-09] MEDS: Losartan Potassium 100 MG Tablet PO (05:14)
[2021-10-09] MEDS: Menthol/Lanolin/Calamine/Znox 113 GM Tube 1 APPLIC TOPICAL ×2 (05:14→14:28)
[2021-10-09] MEDS: Potassium Chloride Oral Tablet 20 MEQ PO (08:26)
[2021-10-09] MEDS: APIXABAN 2.5 MG TABLET PO ×2 (08:26→22:58)
--- NOTE | 2021-10-09 09:02 | NURSING ---
Resting upon entering room. O2 now a 3l/min. Respirations non labored. Awakend for breakfast. Slow with eating and falls to sleep quickly. Encouragement needed.
--- NOTE | 2021-10-09 12:37 | NURSING ---
Nibbles at lunch. Staets she is not hungry. Keeps eyes closed. Lights on room and TV on to stimulate resident. Encoruage to eat. Order chicken noodle soup per her request. Therapy in room and wants to get resident up in a chair. She will continue to eat lunch while in chair.
--- NOTE | 2021-10-09 16:02 | NURSING ---
Bed alarm going off. Resident found standing beside bed. Incontinent of stool and urine. Assisted back to bed and attends changed. Then assisted to chair and bed change done. Encouraged to use call light. Call light in reach and chair alarm in place.
--- NOTE | 2021-10-09 16:41 | NURSING ---
Fritz Bernal called for update. Reported that resident had tried to self transfer today and permission given for room camera to be used to prevent falls. Room camera on at this time.
[2021-10-09] MEDS: Mirtazapine 15 MG Tablet 45 MG PO (22:57)
[2021-10-09] MEDS: Imipramine HCl 25 MG Tablet PO (22:58)
[2021-10-09] MEDS: Donepezil HCl 10 MG Tablet PO (22:58)
[2021-10-09] MEDS: Atorvastatin Calcium 10 MG Tablet PO (22:58)
[2021-10-10] MEDS: Polyethylene Glycol 3350 17 GM PACKET PO (06:32)
[2021-10-10] MEDS: Cholecalciferol (VIT D3) 25 MCG TABLET (1,000 UNITS) PO (06:33)
[2021-10-10] MEDS: Menthol/Lanolin/Calamine/Znox 113 GM Tube 1 APPLIC TOPICAL ×2 (06:33→17:11)
[2021-10-10] MEDS: Acetaminophen 500 MG Tablet 1000 MG PO ×3 (06:33→23:26)
[2021-10-10 06:34] VITALS: BP 127/52; PULSE 99
[2021-10-10] MEDS: Senna/Docusate Sodium 1 Tablet 2 TABLET PO (06:34)
[2021-10-10] MEDS: amLODIPine 5 MG Tablet PO (06:34)
[2021-10-10] MEDS: Levothyroxine 25 MCG TABLET PO (06:34)
[2021-10-10] MEDS: Metoprolol(XL)Succ 25 MG Tablet PO (06:34)
[2021-10-10] MEDS: Losartan Potassium 100 MG Tablet PO (06:34)
[2021-10-10] MEDS: Potassium Chloride Oral Tablet 20 MEQ PO (07:23)
[2021-10-10] MEDS: APIXABAN 2.5 MG TABLET PO ×2 (07:23→23:27)
[2021-10-10] MEDS: Dextrose 5%-0.2% NS 1,000 ML 75 ML IV (08:59)
--- NOTE | 2021-10-10 09:28 | NURSING ---
RN tried to assist patient with breakfast. Patient reported only wanting an applesauce. RN offered fluids..
[2021-10-10 15:35] VITALS: BP 143/68; PULSE 88; RESP 20; TEMP 37.7; O2SAT 90
[2021-10-10] MEDS: Nystatin Powder 15gm Bottle 1 APPLIC TOPICAL (17:12)
--- NOTE | 2021-10-10 20:00 | NURSING ---
Alarm sounds. Pt attempting to make an unassisted transfer. Angiocath on floor and intact. Tegaderm in place to RAC with moderate amount of dried blood. No active bleeding noted. Pt taken to bathroom using wheeled walker. Incontinent of a small amount of brown stool and continent of a small amount of soft, brown stool. Pericare completed then calmoseptine and new brief applied. Ambulates back to bed and positioned for comfort per this nurse. Bed alarm activated. SR up x 3. Call light w/ in reach. Will continue to monitor.
--- NOTE | 2021-10-10 20:45 | NURSING ---
Attempt to restart IV x 3 attempts to left wrist, left medial forearm, and left lateral forearm near AC. Sites to medial forearm and wrist with a flash but unable to flush. DSD applied to each site and secured w/ hypoallergenic tape.
--- NOTE | 2021-10-10 22:14 | NURSING ---
Paged Dr. Bobo w/ immediate return phone call. Questioned if time for Eliquis can be changed to 0600 and 1800. Also questioned if Nystatin powder can be changed to PRN as not yeast noted w/ skin assessment. New orders received for time change as noted above for Eliquis and Nystatin powder frequency change to PRN.
--- NOTE | 2021-10-10 22:15 | MDS.RN ---
[facility] sent o Employment Training Specialist for assist w/ restarting IV. Within minutes, a nurse from ED inserted a 22 gauge angicath into pt's left hand.
--- NOTE | 2021-10-10 22:50 | NURSING ---
After gathering supplies and medications for hs med pass, alarm sounds. Pt starting to ambulate and pulled IV site. Blood dripping from left. Bed rice, fitted sheet, one pillowcase, and gown soiled with blood in addition to several spots on floor. Pt was not reconnected to IVF. Angiocath removed, intact. Large ecchymotic area not to left hand. Moderate to large amount of active bleeding to left hand that ceased with firm pressure applied to site. Hand cleaned with warm water. No further bleeding noted. Placed on BSC. Incontinent of urine and passed very small amount of soft, brown stool. Pericare completed and calmoseptine applied prior to securing new brief. Assisted pt back to bed. Positioned for comfort. SR up x 3. Due to pt discontinuing two IV sites since the beginning of this shift, plan to attempt to restart IV tomorrow am. Bed alarm activated. Room camera remains in use. Call light w/ in reach.
[2021-10-10] MEDS: Atorvastatin Calcium 10 MG Tablet PO (23:25)
[2021-10-10] MEDS: Mirtazapine 15 MG Tablet 45 MG PO (23:26)
[2021-10-10] MEDS: Imipramine HCl 25 MG Tablet PO (23:27)
[2021-10-10] MEDS: Donepezil HCl 10 MG Tablet PO (23:27)
[2021-10-11] VITALS (7 sets, daily range): BP systolic 109–134; BP diastolic 54–63; PULSE 88–106; RESP 16–18; TEMP 36.4–36.9; O2SAT 93–98
--- NOTE | 2021-10-11 02:28 | NURSING ---
Increased movement noted on camera. This nurse entered room in full PPE. Pt w/ eyes open and verbalizes that she thinks she needs to go to the bathroom and have a bm but is unsure. Pt then decides she does not want to get up to go to the bathroom at this time. Offered to reposition pt in bed and she declines. Call light w/ in reach. Will continue to monitor.
[2021-10-11] MEDS: Acetaminophen 500 MG Tablet 1000 MG PO ×3 (05:22→20:59)
[2021-10-11] MEDS: Levothyroxine 25 MCG TABLET PO (05:22)
[2021-10-11] MEDS: APIXABAN 2.5 MG TABLET PO ×2 (05:22→18:00)
[2021-10-11] MEDS: Losartan Potassium 100 MG Tablet PO (05:23)
[2021-10-11] MEDS: Cholecalciferol (VIT D3) 25 MCG TABLET (1,000 UNITS) PO (05:23)
[2021-10-11] MEDS: amLODIPine 5 MG Tablet PO (05:23)
[2021-10-11] MEDS: Menthol/Lanolin/Calamine/Znox 113 GM Tube 1 APPLIC TOPICAL ×2 (05:25→14:13)
--- NOTE | 2021-10-11 05:55 | NURSING ---
Attempted to restart IV x 2 without success to RAC and rt upper arm using a 22 gauge needle with each attempt. Pt tolerated well. DSD applied to each site. Will report to oncoming nurse. Minimal po intake w\ am med pass.
[2021-10-11] MEDS: Potassium Chloride Oral Tablet 20 MEQ PO (07:46)
--- NOTE | 2021-10-11 08:23 | NURSING ---
Addendum entered by Luci Malagon 10/11/21 11:24: Yareli from resort manager called to inform ETA between 3-4:00pm Original Note: Call made to resort manager for N.O. Picc insertion
[2021-10-11] MEDS: Metoprolol(XL)Succ 25 MG Tablet PO (09:46)
--- NOTE | 2021-10-11 15:49 | NURSING ---
Remove fredy Oct 14, update Dr Christiano Ward if there is drainage
--- NOTE | 2021-10-11 17:08 | CASEMGMT ---
Social Work BIMS and PHQ-9 completed for MDS assessment. Ramila Wells, TOPOGRAPHICAL SURVEYOR WATER RESOURCES PROJECT MANAGER
[2021-10-11] MEDS: Senna/Docusate Sodium 1 Tablet 2 TABLET PO (18:00)
--- NOTE | 2021-10-11 18:57 | NURSING ---
Dextrose restarted with 200ml in bag awaiting bag from pharmacy.
[2021-10-11] MEDS: Dextrose 5%-0.2% NS 1,000 ML 75 ML IV (19:29)
[2021-10-11] MEDS: Imipramine HCl 25 MG Tablet PO (20:59)
[2021-10-11] MEDS: Mirtazapine 15 MG Tablet 45 MG PO (20:59)
[2021-10-11] MEDS: Donepezil HCl 10 MG Tablet PO (20:59)
[2021-10-11] MEDS: Atorvastatin Calcium 10 MG Tablet PO (20:59)
[2021-10-12 01:20] VITALS: PULSE 105; O2SAT 95
[2021-10-12] MEDS: Polyethylene Glycol 3350 17 GM PACKET PO (05:43)
[2021-10-12] MEDS: Menthol/Lanolin/Calamine/Znox 113 GM Tube 1 APPLIC TOPICAL ×2 (05:43→17:02)
[2021-10-12] MEDS: Senna/Docusate Sodium 1 Tablet 2 TABLET PO ×2 (05:44→17:01)
[2021-10-12] MEDS: Cholecalciferol (VIT D3) 25 MCG TABLET (1,000 UNITS) PO (05:44)
[2021-10-12] MEDS: APIXABAN 2.5 MG TABLET PO ×2 (05:44→17:01)
[2021-10-12] MEDS: Losartan Potassium 100 MG Tablet PO (05:44)
[2021-10-12 05:45] VITALS: BP 135/75; PULSE 103; RESP 18; TEMP 36.6
[2021-10-12 05:46] VITALS: PULSE 100
[2021-10-12] MEDS: Metoprolol(XL)Succ 25 MG Tablet PO (05:46)
[2021-10-12] MEDS: Acetaminophen 500 MG Tablet 1000 MG PO ×3 (05:47→19:49)
[2021-10-12] MEDS: Levothyroxine 25 MCG TABLET PO (05:47)
[2021-10-12] MEDS: amLODIPine 5 MG Tablet PO (05:47)
[2021-10-12 05:52] LABS: Absolute Lymphocyte Count 1.15 X10^3/uL (0.83-4.51); Absolute Neutrophil Count 3.7 X10^3/uL (2.0-7.7); Eosinophil# 0.01 X10^3/uL; Eosinophils% 0.2 % (0-5); Hematocrit 27.3 % (37-47); Hemoglobin 8.7 g/dL (12.0-15.0); Lymphocyte # 1.15 X10^3/ul (0.83-4.51); Lymphocyte % 22.2 % (19-41); Mean Corp Hgb Conc 31.9 g/dL (32-36); Mean Corpuscular Hgb 27.6 pg (27.0-32.0); Mean Corpuscular Volume 86.7 fL (81-99); Mean Platelet Vol. 9.4 fl (6.2-12.0); Monocyte# 0.26 X10^3/uL; NRBC Flagged by Analyzer 0 % (0-5); Neutrophil # 3.65 X10^3/uL (2.7-7.7); Neutrophil % 70.3 % (47-70); Platelet Count 194 K/mm3 (150-450); RBC Distribution Width CV 14.5 % (11.6-14.6); RBC Distribution Width SD 45.5 fl (35.1-43.9); Red Blood Count 3.15 M/mm3 (4.2-5.4); White Blood Count 5.2 K/mm3 (4.4-11.0)
[2021-10-12 06:27] LABS: Anion Gap 5 (5-15); BUN 11 mg/dL (7-18); BUN/Creat Ratio 14.6 RATIO (10-20); Calcium,Total 9.2 mg/dL (8.5-10.1); Chloride 101 mmol/L (98-107); Creatinine, Serum 0.75 mg/dL (0.55-1.02); EST Glomerular Filtration Rate 78 mL/min (>60); Est Glom Filt Rate - Afr Amer 94 mL/min (>60); Estimated Creatinine Clearance 37.68 ml/min; Glucose 111 mg/dL (74-106); Sodium Level 135 mmol/L (136-145)
--- NOTE | 2021-10-12 06:58 | NURSING ---
Very mild bleeding under PICC dressing last night, light pressure wrap applied over dressing, no further bleeding this AM, dressing removed.
[2021-10-12] MEDS: Potassium Chloride Oral Tablet 20 MEQ PO (08:01)
[2021-10-12] MEDS: Iron Polysaccharide Complex 150 MG CAPSULE PO (08:34)
[2021-10-12] MEDS: Dextrose 5%-0.2% NS 1,000 ML 75 ML IV ×2 (08:46→23:04)
[2021-10-12] MEDS: Tuberculin,Purif.prot.deriv. 50 TU/ML Vial 0.1 ML ID (11:29)
--- NOTE | 2021-10-12 12:57 | NURSING ---
Resident and son, Fritz, notified of staff member testing positive for COVID.
[2021-10-12 14:40] VITALS: BP 114/52; PULSE 94; TEMP 36.4; O2SAT 96
[2021-10-12] MEDS: Mirtazapine 15 MG Tablet 45 MG PO (19:48)
[2021-10-12] MEDS: Donepezil HCl 10 MG Tablet PO (19:49)
[2021-10-12] MEDS: Atorvastatin Calcium 10 MG Tablet PO (19:49)
[2021-10-12] MEDS: Imipramine HCl 25 MG Tablet PO (19:49)
[2021-10-13 05:12] VITALS: BP 133/74; PULSE 100; RESP 22; TEMP 36.3; O2SAT 96
[2021-10-13] MEDS: Menthol/Lanolin/Calamine/Znox 113 GM Tube 1 APPLIC TOPICAL ×2 (06:33→17:42)
[2021-10-13 06:34] VITALS: PULSE 100
[2021-10-13] MEDS: Metoprolol(XL)Succ 25 MG Tablet PO (06:34)
[2021-10-13] MEDS: Losartan Potassium 100 MG Tablet PO (06:34)
[2021-10-13] MEDS: amLODIPine 5 MG Tablet PO (06:34)
[2021-10-13] MEDS: Cholecalciferol (VIT D3) 25 MCG TABLET (1,000 UNITS) PO (06:34)
[2021-10-13] MEDS: Acetaminophen 500 MG Tablet 1000 MG PO ×3 (06:34→21:32)
[2021-10-13] MEDS: APIXABAN 2.5 MG TABLET PO ×2 (06:34→17:42)
[2021-10-13] MEDS: Levothyroxine 25 MCG TABLET PO (06:34)
[2021-10-13] MEDS: Potassium Chloride Oral Tablet 20 MEQ PO (07:44)
[2021-10-13] MEDS: Iron Polysaccharide Complex 150 MG CAPSULE PO (07:44)
[2021-10-13 10:00] VITALS: PULSE 102; RESP 20; O2SAT 98
[2021-10-13] MEDS: Dextrose 5%-0.2% NS 1,000 ML 75 ML IV (13:35)
[2021-10-13 15:14] VITALS: BP 102/57; PULSE 97; RESP 18; TEMP 36.4; O2SAT 98
--- NOTE | 2021-10-13 15:39 | CASEMGMT ---
Social Work IDT held conference call for care plan meeting with pt and son, Fritz. Discussed patient's medical status and progress with PT/OT/ST. Son unsure of DC plan. Pt lives at home with granddaughter Kenya, but she's not really home. Son hesitant to look into SNFs because it went so poorly with his father/pt . He would like to see how pt progresses and how she likes it in TCU. If pt is agreeable for a SNF, he will pursue. Son appreciative of SW assistance. Will continue to follow. Ramila Wells, CLINICAL SERVICES CONSULTANT DIRECTOR PRIVATE MUSIC THERAPY AGENCY
[2021-10-13 16:05] VITALS: O2SAT 98
[2021-10-13] MEDS: Imipramine HCl 25 MG Tablet PO (21:33)
[2021-10-13] MEDS: Donepezil HCl 10 MG Tablet PO (21:33)
[2021-10-13] MEDS: Atorvastatin Calcium 10 MG Tablet PO (21:33)
[2021-10-13] MEDS: Mirtazapine 15 MG Tablet 45 MG PO (21:33)
[2021-10-14] MEDS: Dextrose 5%-0.2% NS 1,000 ML 75 ML IV ×2 (02:59→16:31)
[2021-10-14] MEDS: Levothyroxine 25 MCG TABLET PO (06:35)
[2021-10-14] MEDS: Losartan Potassium 100 MG Tablet PO (06:35)
[2021-10-14] MEDS: APIXABAN 2.5 MG TABLET PO ×2 (06:35→16:31)
[2021-10-14] MEDS: amLODIPine 5 MG Tablet PO (06:35)
[2021-10-14] MEDS: Acetaminophen 500 MG Tablet 1000 MG PO ×3 (06:36→21:54)
[2021-10-14 06:38] VITALS: BP 148/78; PULSE 98
[2021-10-14] MEDS: Metoprolol(XL)Succ 25 MG Tablet PO (06:38)
[2021-10-14] MEDS: Menthol/Lanolin/Calamine/Znox 113 GM Tube 1 APPLIC TOPICAL ×2 (07:18→16:30)
[2021-10-14] MEDS: Cholecalciferol (VIT D3) 25 MCG TABLET (1,000 UNITS) PO (07:19)
--- NOTE | 2021-10-14 07:30 | NURSING ---
[place] removed from left hip incision. 27 fredy counted. Edges well approximated, slightly red . Slight amount of sanguinous drainage noted on depend. No s/sx infection. Patient tolerated well. Will continue to monitor.
--- NOTE | 2021-10-14 07:32 | MDS.RN ---
Information for the mds was obtained from review of the clinical record, interview of resident, staff, and direct observation of resident's care.
[2021-10-14] MEDS: Potassium Chloride Oral Tablet 20 MEQ PO (07:56)
[2021-10-14] MEDS: Iron Polysaccharide Complex 150 MG CAPSULE PO (07:57)
[2021-10-14 08:41] VITALS: O2SAT 98
[2021-10-14 16:00] VITALS: BP 132/73; PULSE 90; RESP 17; TEMP 35.6; O2SAT 96
[2021-10-14] MEDS: Mirtazapine 15 MG Tablet 45 MG PO (21:53)
[2021-10-14] MEDS: Donepezil HCl 10 MG Tablet PO (21:53)
[2021-10-14] MEDS: Imipramine HCl 25 MG Tablet PO (21:53)
[2021-10-14] MEDS: Atorvastatin Calcium 10 MG Tablet PO (21:53)
[2021-10-14 22:00] VITALS: O2SAT 98
--- NOTE | 2021-10-14 22:00 | NURSING ---
Pt remains in isolation, all care provided in room, incontinent of urine and stool, angeles care given and new attends placed, pt turned to lt side with blanket rolled up under heels. HOB elevated, assisted with tv remote, pt states she likes the tv on while she sleeps. Will continue to monitor.
[2021-10-15 05:56] VITALS: BP 141/74; PULSE 100
[2021-10-15] MEDS: APIXABAN 2.5 MG TABLET PO ×2 (05:56→17:18)
[2021-10-15] MEDS: Cholecalciferol (VIT D3) 25 MCG TABLET (1,000 UNITS) PO (05:56)
[2021-10-15] MEDS: amLODIPine 5 MG Tablet PO (05:56)
[2021-10-15] MEDS: Acetaminophen 500 MG Tablet 1000 MG PO ×3 (05:56→20:47)
[2021-10-15] MEDS: Metoprolol(XL)Succ 25 MG Tablet PO (05:56)
[2021-10-15] MEDS: Levothyroxine 25 MCG TABLET PO (05:56)
[2021-10-15] MEDS: Losartan Potassium 100 MG Tablet PO (05:56)
[2021-10-15] MEDS: Menthol/Lanolin/Calamine/Znox 113 GM Tube 1 APPLIC TOPICAL ×2 (05:59→17:18)
[2021-10-15] MEDS: Dextrose 5%-0.2% NS 1,000 ML 75 ML IV (07:26)
[2021-10-15] MEDS: Potassium Chloride Oral Tablet 20 MEQ PO (07:27)
[2021-10-15] MEDS: Iron Polysaccharide Complex 150 MG CAPSULE PO (07:27)
[2021-10-15 08:34] VITALS: O2SAT 96
[2021-10-15 12:17] VITALS: BP 138/66; PULSE 89; RESP 22; TEMP 35.6; O2SAT 100
--- NOTE | 2021-10-15 12:19 | NURSING ---
R' REMAINS IN ISOLATION THIS SHIFT. ASSISTED WITH FEEDING LUNCH. R' ATE APPROX 25-50%. VS OBTAINED. R' 100% ON 3L/AFEBRILE. COUGH NOTED WHILE IN ROOM. R' DENIES PAIN AT THIS TIME. RESTING IN R/C WATCHING TV, O2 IN PLACE AT 3L NC. OFFERED TO ASSIST TO TOILET BUT REFUSED AT THIS TIME. LEGS ELEVATED. CALL LIGHT IN REACH. CHAIR ALARM IN PLACE. WILL MONITOR.
[2021-10-15 14:30] VITALS: O2SAT 98
--- NOTE | 2021-10-15 14:34 | NURSING ---
R' SON EWELINA CALLED. ASSISTED R' WITH PHONE IN ORDER TO TALK WITH SON AT THIS TIME. DENIES NEEDS AT THIS TIME. CALL LIGHT IN REACH. CHAIR ALARM IN PLACE. O2 IN PLACE.
[2021-10-15 17:51] VITALS: O2SAT 98
--- NOTE | 2021-10-15 17:52 | NURSING ---
ASSISTED R' WITH BSC. VOIDED. JANE APPLIED TO BUTTOCKS. OFFERED FOR R' TO GO BACK TO BED, BUT REFUSED. ASSISTED WITH DINNER TRAY. ATE 25%. SPO2 98% 3L NC. FINE CRACKLES RLL. IVF CONTINUE AT 75cc/HR. DENIES PAIN OR NEEDS AT THIS TIME. I.S. ENCOURAGED/FLUIDS ENCOURAGED. LEGS ELEVATED IN R/C. CALL LIGHT IN REACH. CHAIR ALARM IN PLACE AND FUNCTIONING.
[2021-10-15] MEDS: Atorvastatin Calcium 10 MG Tablet PO (20:47)
[2021-10-15] MEDS: Donepezil HCl 10 MG Tablet PO (20:47)
[2021-10-15] MEDS: Imipramine HCl 25 MG Tablet PO (20:47)
[2021-10-15] MEDS: Mirtazapine 15 MG Tablet 45 MG PO (20:48)
[2021-10-16] MEDS: Dextrose 5%-0.2% NS 1,000 ML 75 ML IV (00:45)
[2021-10-16] MEDS: Menthol/Lanolin/Calamine/Znox 113 GM Tube 1 APPLIC TOPICAL ×2 (06:02→17:05)
[2021-10-16] MEDS: Polyethylene Glycol 3350 17 GM PACKET PO (06:02)
[2021-10-16] MEDS: Levothyroxine 25 MCG TABLET PO (06:04)
[2021-10-16] MEDS: APIXABAN 2.5 MG TABLET PO ×2 (06:04→17:02)
[2021-10-16] MEDS: Senna/Docusate Sodium 1 Tablet 2 TABLET PO ×2 (06:04→17:02)
[2021-10-16] MEDS: Losartan Potassium 100 MG Tablet PO (06:04)
[2021-10-16] MEDS: Acetaminophen 500 MG Tablet 1000 MG PO ×3 (06:04→20:55)
[2021-10-16] MEDS: Cholecalciferol (VIT D3) 25 MCG TABLET (1,000 UNITS) PO (06:04)
[2021-10-16] MEDS: amLODIPine 5 MG Tablet PO (06:04)
[2021-10-16 06:08] VITALS: BP 131/67; PULSE 102
[2021-10-16] MEDS: Metoprolol(XL)Succ 25 MG Tablet PO (06:08)
[2021-10-16] MEDS: Iron Polysaccharide Complex 150 MG CAPSULE PO (08:02)
[2021-10-16] MEDS: Potassium Chloride Oral Tablet 20 MEQ PO (08:02)
[2021-10-16 10:00] VITALS: PULSE 84; O2SAT 94
[2021-10-16 10:05] VITALS: O2SAT 96
[2021-10-16 17:01] VITALS: BP 131/64; PULSE 100; RESP 18; TEMP 35.8; O2SAT 95
[2021-10-16 20:52] VITALS: TEMP 36.6
[2021-10-16] MEDS: Mirtazapine 15 MG Tablet 45 MG PO (20:54)
[2021-10-16] MEDS: Imipramine HCl 25 MG Tablet PO (20:54)
[2021-10-16] MEDS: Donepezil HCl 10 MG Tablet PO (20:54)
[2021-10-16] MEDS: Atorvastatin Calcium 10 MG Tablet PO (20:56)
[2021-10-17] MEDS: Losartan Potassium 100 MG Tablet PO (05:58)
[2021-10-17] MEDS: APIXABAN 2.5 MG TABLET PO ×2 (05:58→17:03)
[2021-10-17] MEDS: amLODIPine 5 MG Tablet PO (05:58)
[2021-10-17 05:59] VITALS: BP 170/83; PULSE 120
[2021-10-17] MEDS: Metoprolol(XL)Succ 25 MG Tablet PO (05:59)
[2021-10-17] MEDS: Senna/Docusate Sodium 1 Tablet 2 TABLET PO ×2 (05:59→17:03)
[2021-10-17] MEDS: Acetaminophen 500 MG Tablet 1000 MG PO ×3 (05:59→21:20)
[2021-10-17] MEDS: Levothyroxine 25 MCG TABLET PO (05:59)
[2021-10-17] MEDS: Polyethylene Glycol 3350 17 GM PACKET PO (06:00)
[2021-10-17] MEDS: Cholecalciferol (VIT D3) 25 MCG TABLET (1,000 UNITS) PO (06:00)
[2021-10-17] MEDS: Menthol/Lanolin/Calamine/Znox 113 GM Tube 1 APPLIC TOPICAL ×2 (06:04→17:04)
[2021-10-17 06:05] VITALS: BP 170/83; PULSE 120; RESP 20; TEMP 36.7; O2SAT 94
[2021-10-17 08:10] VITALS: O2SAT 93
[2021-10-17] MEDS: Potassium Chloride Oral Tablet 20 MEQ PO (09:46)
[2021-10-17] MEDS: Iron Polysaccharide Complex 150 MG CAPSULE PO (09:47)
[2021-10-17 11:19] VITALS: BP 118/60; PULSE 99; RESP 16; TEMP 36.7; O2SAT 93
[2021-10-17] MEDS: 0.9% Saline Lock 10 ML Syringe IV ×2 (11:24→21:30)
[2021-10-17 14:49] VITALS: BP 116/60; PULSE 90; RESP 16; TEMP 35.9; O2SAT 98
[2021-10-17] MEDS: Donepezil HCl 10 MG Tablet PO (21:20)
[2021-10-17] MEDS: Mirtazapine 15 MG Tablet 45 MG PO (21:20)
[2021-10-17] MEDS: Imipramine HCl 25 MG Tablet PO (21:21)
[2021-10-17] MEDS: Atorvastatin Calcium 10 MG Tablet PO (21:21)
[2021-10-18 04:54] VITALS: BP 144/69; PULSE 108
[2021-10-18] MEDS: Acetaminophen 500 MG Tablet 1000 MG PO ×3 (04:54→22:34)
[2021-10-18 04:55] VITALS: PULSE 108
[2021-10-18] MEDS: Metoprolol(XL)Succ 25 MG Tablet PO (04:55)
[2021-10-18] MEDS: amLODIPine 5 MG Tablet PO (04:55)
[2021-10-18] MEDS: Cholecalciferol (VIT D3) 25 MCG TABLET (1,000 UNITS) PO (04:55)
[2021-10-18] MEDS: Levothyroxine 25 MCG TABLET PO (04:56)
[2021-10-18] MEDS: APIXABAN 2.5 MG TABLET PO ×2 (04:56→17:29)
[2021-10-18] MEDS: Losartan Potassium 100 MG Tablet PO (04:56)
[2021-10-18] MEDS: Menthol/Lanolin/Calamine/Znox 113 GM Tube 1 APPLIC TOPICAL ×2 (04:57→17:31)
[2021-10-18] MEDS: Iron Polysaccharide Complex 150 MG CAPSULE PO (08:29)
[2021-10-18] MEDS: Potassium Chloride Oral Tablet 20 MEQ PO (08:29)
--- NOTE | 2021-10-18 12:24 | NURSING ---
Spoke with patient's POA Jose David Sweeney, per POA pt is not to receive the pneumo vaccination.
[2021-10-18 13:46] VITALS: BP 91/57; PULSE 107; RESP 16; TEMP 36.2; O2SAT 95
--- NOTE | 2021-10-18 14:31 | NURSING ---
Per Dr. Bobo order, start D5 .45NS @ 60/hr due to pt not eating and drinking very little.
--- NOTE | 2021-10-18 14:59 | NURSING ---
Resident and son, Fritz, notified of 2 staff members testing positive for COVID.
[2021-10-18] MEDS: Dext 5%-0.45% NS 1,000 ML 60 ML IV (15:55)
[2021-10-18] MEDS: Atorvastatin Calcium 10 MG Tablet PO (22:31)
[2021-10-18] MEDS: Imipramine HCl 25 MG Tablet PO (22:31)
[2021-10-18] MEDS: Mirtazapine 15 MG Tablet 45 MG PO (22:31)
[2021-10-18] MEDS: Donepezil HCl 10 MG Tablet PO (22:31)
[2021-10-19] MEDS: Menthol/Lanolin/Calamine/Znox 113 GM Tube 1 APPLIC TOPICAL ×2 (05:36→21:48)
[2021-10-19] MEDS: Senna/Docusate Sodium 1 Tablet 2 TABLET PO ×2 (05:37→18:01)
[2021-10-19] MEDS: Losartan Potassium 100 MG Tablet PO (05:37)
[2021-10-19] MEDS: APIXABAN 2.5 MG TABLET PO ×2 (05:37→18:03)
[2021-10-19] MEDS: Polyethylene Glycol 3350 17 GM PACKET PO (05:37)
[2021-10-19] MEDS: amLODIPine 5 MG Tablet PO (05:37)
[2021-10-19 05:38] VITALS: BP 125/62; PULSE 103
[2021-10-19] MEDS: Levothyroxine 25 MCG TABLET PO (05:38)
[2021-10-19] MEDS: Metoprolol(XL)Succ 25 MG Tablet PO (05:38)
[2021-10-19] MEDS: Acetaminophen 500 MG Tablet 1000 MG PO ×3 (05:38→21:49)
[2021-10-19] MEDS: Cholecalciferol (VIT D3) 25 MCG TABLET (1,000 UNITS) PO (05:39)
[2021-10-19 06:06] LABS: Absolute Lymphocyte Count 2.18 X10^3/uL (0.83-4.51); Absolute Neutrophil Count 2.6 X10^3/uL (2.0-7.7); Basophil# 0.02 X10^3/uL; Basophil% 0.4 % (0-1); Eosinophil# 0.13 X10^3/uL; Eosinophils% 2.3 % (0-5); Hematocrit 29.8 % (37-47); Hemoglobin 9.3 g/dL (12.0-15.0); Lymphocyte # 2.18 X10^3/ul (0.83-4.51); Lymphocyte % 38.9 % (19-41); Mean Corp Hgb Conc 31.2 g/dL (32-36); Mean Corpuscular Hgb 27.4 pg (27.0-32.0); Mean Corpuscular Volume 87.6 fL (81-99); Mean Platelet Vol. 8.7 fl (6.2-12.0); Monocyte# 0.55 X10^3/uL; Monocyte% 9.8 % (0-10); NRBC Flagged by Analyzer 0 % (0-5); Neutrophil # 2.62 X10^3/uL (2.7-7.7); Neutrophil % 46.8 % (47-70); Platelet Count 468 K/mm3 (150-450); RBC Distribution Width CV 14.8 % (11.6-14.6); RBC Distribution Width SD 46.5 fl (35.1-43.9); White Blood Count 5.6 K/mm3 (4.4-11.0)
[2021-10-19 06:27] LABS: Anion Gap 7 (5-15); BUN 18 mg/dL (7-18); BUN/Creat Ratio 19.6 RATIO (10-20); Calcium,Total 10.1 mg/dL (8.5-10.1); Chloride 107 mmol/L (98-107); Creatinine, Serum 0.92 mg/dL (0.55-1.02); EST Glomerular Filtration Rate 62 mL/min (>60); Est Glom Filt Rate - Afr Amer 75 mL/min (>60); Estimated Creatinine Clearance 40.96 ml/min; Glucose 110 mg/dL (74-106); Potassium 4.1 mmol/L (3.5-5.1); Sodium Level 139 mmol/L (136-145)
[2021-10-19] MEDS: Dext 5%-0.45% NS 1,000 ML 60 ML IV (07:29)
[2021-10-19] MEDS: Iron Polysaccharide Complex 150 MG CAPSULE PO (09:04)
[2021-10-19] MEDS: Potassium Chloride Oral Tablet 20 MEQ PO (09:05)
[2021-10-19] MEDS: 0.9% Saline Lock 10 ML Syringe IV ×2 (12:34→19:36)
[2021-10-19 13:12] VITALS: BP 103/55; PULSE 104; RESP 17; TEMP 36.3; O2SAT 95
--- NOTE | 2021-10-19 16:07 | CHAPLAIN ---
Type of Pastoral Visit _x__ Initial Visit ___ Follow-up Visit ___ On-call Visit ___ General Patient Visit ___ Spiritual Assessment ___ Family Conference ___ Bereavement ___ Rapid Response ___ Code Blue ___ Other (describe below) Pastoral Care Referral From _x__ Patient ___ Family ___ Nurse ___ Physician ___ Hospital Internship ___ Healthcare Risk Control Consultant ___ Other (describe below) Sacrament/Intervention ___ Active listening ___ Anointing ___ Lutheran ___ Bereavement ___ Communion ___ Yakelin exploration ___ ___ Life review ___ Prayer ___ Reconciliation ___ Sacrament of Sick _x__ Supportive presence ___ Wedding ___ Other (describe below) Pastoral Comments this security services manager saw patient when she was in [place]; pt has confusion about where she is and what happened to her; tried to orient pt to place and purpose of stay; pt was asking is anybody around and is anybody here; showed patient her call button to remind about asking for help; pt then asked to go to the bathroom; call light initiated and help came; visit ended
[2021-10-19 19:46] VITALS: PULSE 98; RESP 16; O2SAT 98
[2021-10-19] MEDS: Mirtazapine 15 MG Tablet 45 MG PO (21:48)
[2021-10-19] MEDS: Donepezil HCl 10 MG Tablet PO (21:48)
[2021-10-19] MEDS: Imipramine HCl 25 MG Tablet PO (21:49)
[2021-10-19] MEDS: Atorvastatin Calcium 10 MG Tablet PO (21:49)
[2021-10-20] MEDS: Dext 5%-0.45% NS 1,000 ML 60 ML IV ×2 (02:07→18:14)
[2021-10-20] MEDS: Losartan Potassium 100 MG Tablet PO (04:59)
[2021-10-20] MEDS: Acetaminophen 500 MG Tablet 1000 MG PO ×3 (04:59→20:47)
[2021-10-20] MEDS: Polyethylene Glycol 3350 17 GM PACKET PO (04:59)
[2021-10-20] MEDS: Levothyroxine 25 MCG TABLET PO (04:59)
[2021-10-20] MEDS: Cholecalciferol (VIT D3) 25 MCG TABLET (1,000 UNITS) PO (04:59)
[2021-10-20] MEDS: Senna/Docusate Sodium 1 Tablet 2 TABLET PO (04:59)
[2021-10-20] MEDS: amLODIPine 5 MG Tablet PO (04:59)
[2021-10-20] MEDS: APIXABAN 2.5 MG TABLET PO ×2 (04:59→17:14)
[2021-10-20 05:00] VITALS: BP 151/76; PULSE 103
[2021-10-20] MEDS: Metoprolol(XL)Succ 25 MG Tablet PO (05:00)
[2021-10-20] MEDS: Menthol/Lanolin/Calamine/Znox 113 GM Tube 1 APPLIC TOPICAL ×2 (05:01→17:11)
[2021-10-20] MEDS: Iron Polysaccharide Complex 150 MG CAPSULE PO (08:49)
[2021-10-20] MEDS: Potassium Chloride Oral Tablet 20 MEQ PO (08:50)
--- NOTE | 2021-10-20 09:42 | NURSING ---
Overall this AM- Patient more drowsy than usual, poor appetite noted. Complication with taking potassium chloride so given with applesauce, overall tolerated well. Patient up in chair after breakfast, incontinent of stool and urine. Still drowsy sitting up in the chair.
[2021-10-20 16:00] VITALS: BP 129/66; PULSE 99; RESP 18; TEMP 36.5; O2SAT 96
[2021-10-20] MEDS: 0.9% Saline Lock 10 ML Syringe IV (18:14)
[2021-10-20] MEDS: Donepezil HCl 10 MG Tablet PO (20:46)
[2021-10-20] MEDS: Mirtazapine 15 MG Tablet 45 MG PO (20:46)
[2021-10-20] MEDS: Imipramine HCl 25 MG Tablet PO (20:47)
[2021-10-20] MEDS: Atorvastatin Calcium 10 MG Tablet PO (20:49)
[2021-10-21] MEDS: amLODIPine 5 MG Tablet PO (05:53)
[2021-10-21] MEDS: Acetaminophen 500 MG Tablet 1000 MG PO ×3 (05:54→20:32)
[2021-10-21] MEDS: APIXABAN 2.5 MG TABLET PO ×2 (05:54→17:27)
[2021-10-21] MEDS: Cholecalciferol (VIT D3) 25 MCG TABLET (1,000 UNITS) PO (05:54)
[2021-10-21] MEDS: Levothyroxine 25 MCG TABLET PO (05:54)
[2021-10-21] MEDS: Losartan Potassium 100 MG Tablet PO (05:54)
[2021-10-21] MEDS: Menthol/Lanolin/Calamine/Znox 113 GM Tube 1 APPLIC TOPICAL ×2 (05:54→17:29)
[2021-10-21 06:00] VITALS: BP 150/71; PULSE 115
[2021-10-21] MEDS: Metoprolol(XL)Succ 25 MG Tablet PO (06:00)
[2021-10-21] MEDS: Iron Polysaccharide Complex 150 MG CAPSULE PO (08:47)
[2021-10-21] MEDS: Potassium Chloride Oral Tablet 20 MEQ PO (08:47)
[2021-10-21 10:00] VITALS: PULSE 100; RESP 18; O2SAT 98
[2021-10-21] MEDS: Dext 5%-0.45% NS 1,000 ML 60 ML IV (10:38)
[2021-10-21 14:19] VITALS: BP 121/74; PULSE 108; RESP 16; TEMP 36.6; O2SAT 98
[2021-10-21] MEDS: Senna/Docusate Sodium 1 Tablet 2 TABLET PO (17:27)
[2021-10-21] MEDS: Mirtazapine 15 MG Tablet 45 MG PO (20:32)
[2021-10-21] MEDS: Atorvastatin Calcium 10 MG Tablet PO (20:33)
[2021-10-21] MEDS: Donepezil HCl 10 MG Tablet PO (20:33)
[2021-10-21] MEDS: Imipramine HCl 25 MG Tablet PO (20:34)
[2021-10-22] MEDS: Dext 5%-0.45% NS 1,000 ML 60 ML IV ×2 (03:20→21:01)
[2021-10-22] MEDS: Losartan Potassium 100 MG Tablet PO (06:05)
[2021-10-22] MEDS: APIXABAN 2.5 MG TABLET PO ×2 (06:05→16:36)
[2021-10-22] MEDS: Acetaminophen 500 MG Tablet 1000 MG PO ×3 (06:06→21:00)
[2021-10-22] MEDS: amLODIPine 5 MG Tablet PO (06:06)
[2021-10-22] MEDS: Senna/Docusate Sodium 1 Tablet 2 TABLET PO ×2 (06:06→16:36)
[2021-10-22] MEDS: Cholecalciferol (VIT D3) 25 MCG TABLET (1,000 UNITS) PO (06:06)
[2021-10-22] MEDS: Levothyroxine 25 MCG TABLET PO (06:06)
[2021-10-22 06:07] VITALS: BP 165/78; PULSE 104
[2021-10-22] MEDS: Menthol/Lanolin/Calamine/Znox 113 GM Tube 1 APPLIC TOPICAL ×2 (06:07→16:36)
[2021-10-22] MEDS: Metoprolol(XL)Succ 25 MG Tablet PO (06:07)
[2021-10-22] MEDS: Potassium Chloride Oral Tablet 20 MEQ PO (09:05)
[2021-10-22] MEDS: Iron Polysaccharide Complex 150 MG CAPSULE PO (09:05)
[2021-10-22 12:09] VITALS: PULSE 94; RESP 16; O2SAT 95
--- NOTE | 2021-10-22 12:34 | NURSING ---
Addendum entered by Starr Tavera 10/22/21 15:14: 1430 pt returned from appt, no orders. Original Note: pt off unit to appt w/Dr Ward by physicians transport
[2021-10-22 16:39] VITALS: BP 146/67; PULSE 90; RESP 16; TEMP 36.3; O2SAT 97
[2021-10-22] MEDS: Mirtazapine 15 MG Tablet 45 MG PO (21:00)
[2021-10-22] MEDS: Donepezil HCl 10 MG Tablet PO (21:00)
[2021-10-22] MEDS: Atorvastatin Calcium 10 MG Tablet PO (21:00)
[2021-10-22] MEDS: Imipramine HCl 25 MG Tablet PO (21:00)
[2021-10-23 06:04] VITALS: BP 148/67; PULSE 107
[2021-10-23] MEDS: Levothyroxine 25 MCG TABLET PO (06:04)
[2021-10-23] MEDS: Metoprolol(XL)Succ 25 MG Tablet PO (06:04)
[2021-10-23] MEDS: Cholecalciferol (VIT D3) 25 MCG TABLET (1,000 UNITS) PO (06:04)
[2021-10-23] MEDS: Acetaminophen 500 MG Tablet 1000 MG PO ×3 (06:04→20:33)
[2021-10-23] MEDS: amLODIPine 5 MG Tablet PO (06:04)
[2021-10-23] MEDS: Losartan Potassium 100 MG Tablet PO (06:04)
[2021-10-23] MEDS: Senna/Docusate Sodium 1 Tablet 2 TABLET PO (06:04)
[2021-10-23] MEDS: APIXABAN 2.5 MG TABLET PO ×2 (06:05→17:28)
[2021-10-23] MEDS: Menthol/Lanolin/Calamine/Znox 113 GM Tube 1 APPLIC TOPICAL ×2 (06:05→17:32)
[2021-10-23] MEDS: Potassium Chloride Oral Tablet 20 MEQ PO (08:33)
[2021-10-23] MEDS: Iron Polysaccharide Complex 150 MG CAPSULE PO (08:33)
[2021-10-23 10:00] VITALS: PULSE 93; RESP 16; O2SAT 98
[2021-10-23] MEDS: Dext 5%-0.45% NS 1,000 ML 60 ML IV (13:03)
[2021-10-23 13:38] VITALS: BP 116/59; PULSE 98; RESP 16; TEMP 36.5; O2SAT 96
[2021-10-23] MEDS: Mirtazapine 15 MG Tablet 45 MG PO (20:33)
[2021-10-23] MEDS: Imipramine HCl 25 MG Tablet PO (20:33)
[2021-10-23] MEDS: Donepezil HCl 10 MG Tablet PO (20:34)
[2021-10-23] MEDS: Atorvastatin Calcium 10 MG Tablet PO (20:34)
[2021-10-24] MEDS: Polyethylene Glycol 3350 17 GM PACKET PO (05:28)
[2021-10-24] MEDS: Levothyroxine 25 MCG TABLET PO (05:28)
[2021-10-24] MEDS: amLODIPine 5 MG Tablet PO (05:28)
[2021-10-24] MEDS: Losartan Potassium 100 MG Tablet PO (05:28)
[2021-10-24 05:29] VITALS: BP 144/79; PULSE 101
[2021-10-24] MEDS: APIXABAN 2.5 MG TABLET PO ×2 (05:29→16:56)
[2021-10-24] MEDS: Acetaminophen 500 MG Tablet 1000 MG PO ×3 (05:29→19:57)
[2021-10-24] MEDS: Metoprolol(XL)Succ 25 MG Tablet PO (05:29)
[2021-10-24] MEDS: Senna/Docusate Sodium 1 Tablet 2 TABLET PO ×2 (05:29→16:56)
[2021-10-24] MEDS: Cholecalciferol (VIT D3) 25 MCG TABLET (1,000 UNITS) PO (05:29)
[2021-10-24] MEDS: Menthol/Lanolin/Calamine/Znox 113 GM Tube 1 APPLIC TOPICAL ×2 (05:37→16:55)
[2021-10-24] MEDS: Dext 5%-0.45% NS 1,000 ML 60 ML IV (06:30)
[2021-10-24] MEDS: Iron Polysaccharide Complex 150 MG CAPSULE PO (08:28)
[2021-10-24] MEDS: Potassium Chloride Oral Tablet 20 MEQ PO (08:28)
[2021-10-24 15:57] VITALS: BP 139/68; PULSE 97; RESP 14; TEMP 36.1; O2SAT 96
[2021-10-24] MEDS: Imipramine HCl 25 MG Tablet PO (19:57)
[2021-10-24] MEDS: Donepezil HCl 10 MG Tablet PO (19:57)
[2021-10-24] MEDS: Mirtazapine 15 MG Tablet 45 MG PO (19:58)
[2021-10-24] MEDS: Atorvastatin Calcium 10 MG Tablet PO (19:58)
[2021-10-24] MEDS: 0.9% Saline Lock 10 ML Syringe IV (20:01)
[2021-10-24 22:00] VITALS: PULSE 92; RESP 16; O2SAT 92
[2021-10-25] MEDS: amLODIPine 5 MG Tablet PO (05:39)
[2021-10-25] MEDS: Polyethylene Glycol 3350 17 GM PACKET PO (05:39)
[2021-10-25] MEDS: Acetaminophen 500 MG Tablet 1000 MG PO ×3 (05:39→21:20)
[2021-10-25] MEDS: APIXABAN 2.5 MG TABLET PO ×2 (05:39→17:41)
[2021-10-25] MEDS: Senna/Docusate Sodium 1 Tablet 2 TABLET PO ×2 (05:40→17:41)
[2021-10-25 05:41] VITALS: BP 159/82; PULSE 97
[2021-10-25] MEDS: Metoprolol(XL)Succ 25 MG Tablet PO (05:41)
[2021-10-25] MEDS: Menthol/Lanolin/Calamine/Znox 113 GM Tube 1 APPLIC TOPICAL ×2 (06:01→17:42)
[2021-10-25] MEDS: Losartan Potassium 100 MG Tablet PO (06:02)
[2021-10-25] MEDS: Cholecalciferol (VIT D3) 25 MCG TABLET (1,000 UNITS) PO (06:02)
[2021-10-25] MEDS: Levothyroxine 25 MCG TABLET PO (06:02)
[2021-10-25] MEDS: Potassium Chloride Oral Tablet 20 MEQ PO (09:26)
[2021-10-25] MEDS: Iron Polysaccharide Complex 150 MG CAPSULE PO (09:26)
--- NOTE | 2021-10-25 10:48 | NURSING ---
son Cam called and stated that he will be in tomorrow 10/26 at 0900 for a call with social security to assist his mother. Notified CANDY Jules so she can update JEREMIAH Hu.
[2021-10-25 15:42] VITALS: BP 148/41; PULSE 92; RESP 14; TEMP 36.8; O2SAT 95
[2021-10-25 19:58] VITALS: O2SAT 94
[2021-10-25] MEDS: Mirtazapine 15 MG Tablet 45 MG PO (21:20)
[2021-10-25] MEDS: Donepezil HCl 10 MG Tablet PO (21:20)
[2021-10-25] MEDS: Atorvastatin Calcium 10 MG Tablet PO (21:21)
[2021-10-25] MEDS: Imipramine HCl 25 MG Tablet PO (21:21)
[2021-10-25] MEDS: 0.9% Saline Lock 10 ML Syringe IV (21:22)
[2021-10-26 05:53] VITALS: BP 122/59; PULSE 90; O2SAT 93
[2021-10-26 05:55] LABS: Absolute Lymphocyte Count 2.02 X10^3/uL (0.83-4.51); Absolute Neutrophil Count 2.1 X10^3/uL (2.0-7.7); Basophil# 0.02 X10^3/uL; Basophil% 0.4 % (0-1); Eosinophil# 0.13 X10^3/uL; Eosinophils% 2.7 % (0-5); Hematocrit 32.8 % (37-47); Lymphocyte # 2.02 X10^3/ul (0.83-4.51); Lymphocyte % 42.6 % (19-41); Mean Corp Hgb Conc 30.5 g/dL (32-36); Mean Corpuscular Hgb 27.5 pg (27.0-32.0); Mean Corpuscular Volume 90.1 fL (81-99); Mean Platelet Vol. 8.9 fl (6.2-12.0); Monocyte# 0.41 X10^3/uL; Monocyte% 8.6 % (0-10); NRBC Flagged by Analyzer 0 % (0-5); Neutrophil # 2.12 X10^3/uL (2.7-7.7); Neutrophil % 44.9 % (47-70); Platelet Count 322 K/mm3 (150-450); RBC Distribution Width CV 16.8 % (11.6-14.6); RBC Distribution Width SD 54.7 fl (35.1-43.9); Red Blood Count 3.64 M/mm3 (4.2-5.4); White Blood Count 4.7 K/mm3 (4.4-11.0)
[2021-10-26] MEDS: Losartan Potassium 100 MG Tablet PO (06:09)
[2021-10-26] MEDS: Levothyroxine 25 MCG TABLET PO (06:09)
[2021-10-26] MEDS: Cholecalciferol (VIT D3) 25 MCG TABLET (1,000 UNITS) PO (06:09)
[2021-10-26] MEDS: Senna/Docusate Sodium 1 Tablet 2 TABLET PO ×2 (06:09→17:16)
[2021-10-26] MEDS: Acetaminophen 500 MG Tablet 1000 MG PO ×3 (06:09→20:01)
[2021-10-26] MEDS: amLODIPine 5 MG Tablet PO (06:09)
[2021-10-26] MEDS: Polyethylene Glycol 3350 17 GM PACKET PO (06:09)
[2021-10-26 06:10] VITALS: BP 122/59; PULSE 90
[2021-10-26] MEDS: Metoprolol(XL)Succ 25 MG Tablet PO (06:10)
[2021-10-26] MEDS: APIXABAN 2.5 MG TABLET PO ×2 (06:10→17:16)
[2021-10-26] MEDS: Menthol/Lanolin/Calamine/Znox 113 GM Tube 1 APPLIC TOPICAL ×2 (06:12→17:16)
[2021-10-26 07:11] LABS: Anion Gap 4 (5-15); BUN 14 mg/dL (7-18); BUN/Creat Ratio 16.1 RATIO (10-20); Calcium,Total 10.3 mg/dL (8.5-10.1); Chloride 106 mmol/L (98-107); Creatinine, Serum 0.87 mg/dL (0.55-1.02); EST Glomerular Filtration Rate 66 mL/min (>60); Est Glom Filt Rate - Afr Amer 80 mL/min (>60); Estimated Creatinine Clearance 43.31 ml/min; Glucose 104 mg/dL (74-106); Potassium 4.3 mmol/L (3.5-5.1); Sodium Level 137 mmol/L (136-145)
[2021-10-26] MEDS: Iron Polysaccharide Complex 150 MG CAPSULE PO (09:37)
[2021-10-26] MEDS: Potassium Chloride Oral Tablet 20 MEQ PO (09:37)
[2021-10-26 10:00] VITALS: PULSE 94; RESP 16; O2SAT 99
[2021-10-26 14:16] VITALS: BP 91/56; PULSE 68; RESP 16; TEMP 36.8
[2021-10-26] MEDS: Imipramine HCl 25 MG Tablet PO (20:01)
[2021-10-26] MEDS: Atorvastatin Calcium 10 MG Tablet PO (20:01)
[2021-10-26] MEDS: Donepezil HCl 10 MG Tablet PO (20:01)
[2021-10-26] MEDS: Mirtazapine 15 MG Tablet 45 MG PO (20:01)
[2021-10-26] MEDS: 0.9% Saline Lock 10 ML Syringe IV (20:06)
[2021-10-27] MEDS: Polyethylene Glycol 3350 17 GM PACKET PO (04:54)
[2021-10-27] MEDS: Menthol/Lanolin/Calamine/Znox 113 GM Tube 1 APPLIC TOPICAL ×2 (04:54→16:53)
[2021-10-27 04:55] VITALS: BP 148/77; PULSE 101
[2021-10-27] MEDS: Senna/Docusate Sodium 1 Tablet 2 TABLET PO ×2 (04:55→16:53)
[2021-10-27] MEDS: Losartan Potassium 100 MG Tablet PO (04:55)
[2021-10-27] MEDS: amLODIPine 5 MG Tablet PO (04:55)
[2021-10-27] MEDS: Acetaminophen 500 MG Tablet 1000 MG PO ×3 (04:55→21:26)
[2021-10-27] MEDS: Levothyroxine 25 MCG TABLET PO (04:55)
[2021-10-27] MEDS: Metoprolol(XL)Succ 25 MG Tablet PO (04:55)
[2021-10-27] MEDS: Cholecalciferol (VIT D3) 25 MCG TABLET (1,000 UNITS) PO (04:56)
[2021-10-27] MEDS: APIXABAN 2.5 MG TABLET PO ×2 (04:56→16:53)
[2021-10-27] MEDS: Iron Polysaccharide Complex 150 MG CAPSULE PO (09:08)
[2021-10-27] MEDS: Potassium Chloride Oral Tablet 20 MEQ PO (09:09)
[2021-10-27 13:58] VITALS: BP 95/62; PULSE 68; RESP 16; TEMP 36.8; O2SAT 100
--- NOTE | 2021-10-27 14:08 | CASEMGMT ---
Social Work IDT held care plan meeting with son, Fritz, via conference all to provide updates on pt's levels from PT/OT/ST/dietary and nursing. IDT is recommending 24/7 care with consistent help in the home, [facility] care or SNF. Explained financial liability for each. Pt's cognition is very poor, cannot sequence, cannot process or recall information. Requires cues for all tasks. Son appreciative of updates and will discuss options with family before making a decision. Advised pt will remain for about 2 more weeks and to follow up with this worker early next week to provided decision. SW to continue to follow for ongoing support and DC planning. Ramila Wells, TERMINAL COMPUTER OPERATOR SPECIAL EDUCATION SUPERINTENDENT
[2021-10-27] MEDS: 0.9% Saline Lock 10 ML Syringe IV (16:54)
[2021-10-27] MEDS: Donepezil HCl 10 MG Tablet PO (21:24)
[2021-10-27] MEDS: Atorvastatin Calcium 10 MG Tablet PO (21:24)
[2021-10-27] MEDS: Mirtazapine 15 MG Tablet 45 MG PO (21:25)
[2021-10-27] MEDS: Imipramine HCl 25 MG Tablet PO (21:25)
[2021-10-27 21:33] VITALS: PULSE 88; RESP 16; O2SAT 94
[2021-10-28 05:06] VITALS: BP 155/79; PULSE 94
[2021-10-28] MEDS: 0.9% Saline Lock 10 ML Syringe IV ×2 (05:08→16:51)
[2021-10-28] MEDS: Polyethylene Glycol 3350 17 GM PACKET PO (05:10)
[2021-10-28] MEDS: Losartan Potassium 100 MG Tablet PO (05:11)
[2021-10-28] MEDS: Senna/Docusate Sodium 1 Tablet 2 TABLET PO ×2 (05:11→16:48)
[2021-10-28] MEDS: APIXABAN 2.5 MG TABLET PO ×2 (05:11→16:48)
[2021-10-28] MEDS: Cholecalciferol (VIT D3) 25 MCG TABLET (1,000 UNITS) PO (05:11)
[2021-10-28 05:12] VITALS: PULSE 94
[2021-10-28] MEDS: amLODIPine 5 MG Tablet PO (05:12)
[2021-10-28] MEDS: Menthol/Lanolin/Calamine/Znox 113 GM Tube 1 APPLIC TOPICAL ×2 (05:12→16:50)
[2021-10-28] MEDS: Acetaminophen 500 MG Tablet 1000 MG PO ×3 (05:12→21:06)
[2021-10-28] MEDS: Levothyroxine 25 MCG TABLET PO (05:12)
[2021-10-28] MEDS: Metoprolol(XL)Succ 25 MG Tablet PO (05:12)
[2021-10-28] MEDS: Iron Polysaccharide Complex 150 MG CAPSULE PO (08:17)
[2021-10-28] MEDS: Potassium Chloride Oral Tablet 20 MEQ PO (08:17)
[2021-10-28 14:22] VITALS: PULSE 93; RESP 18; O2SAT 96
[2021-10-28 14:35] VITALS: BP 116/53; PULSE 94; RESP 16; TEMP 35.7; O2SAT 97
[2021-10-28] MEDS: Donepezil HCl 10 MG Tablet PO (21:04)
[2021-10-28] MEDS: Atorvastatin Calcium 10 MG Tablet PO (21:05)
[2021-10-28] MEDS: Mirtazapine 15 MG Tablet 45 MG PO (21:05)
[2021-10-28] MEDS: Imipramine HCl 25 MG Tablet PO (21:06)
--- NOTE | 2021-10-29 00:20 | RAD_ITS ---
STUDY: X-RAY - PELVIS AND LEFT HIP REASON FOR EXAM: Female, 86 years old patient fell on left hip. Recent hip fracture. TECHNIQUE: 3 views of the pelvis and hip. COMPARISON: Radiographs of pelvis and left hip dated 10/05/2021. FINDINGS: There is a non-specific bowel gas pattern. Normal visualized soft tissue structures. There is diffuse demineralization of the osseous structures. The sacrum and iliac wings are obscured by bowel gas and/or stool. Normal bilateral superior and inferior pubic rami. There are degenerative changes of the pubic symphysis with articular narrowing and sclerosis. Normal bilateral ischial tuberosities. Patient has had a left hip arthroplasty. Normal acetabulum. There mild degenerative changes of the right hip. There are degenerative changes of lumbar spine with degenerative disc disease at L4-5. RAD/HIP, UNI W/ Pelvis 2-3 Views IMPRESSION: No definite evidence for acute fracture or dislocation. Electronically Signed: Elyse Ward MD at 1:55 EST ,
[2021-10-29 06:28] VITALS: BP 153/81; PULSE 103
[2021-10-29] MEDS: Senna/Docusate Sodium 1 Tablet 2 TABLET PO ×2 (06:28→17:27)
[2021-10-29] MEDS: Acetaminophen 500 MG Tablet 1000 MG PO ×3 (06:28→20:45)
[2021-10-29] MEDS: Cholecalciferol (VIT D3) 25 MCG TABLET (1,000 UNITS) PO (06:28)
[2021-10-29] MEDS: Metoprolol(XL)Succ 25 MG Tablet PO (06:28)
[2021-10-29] MEDS: amLODIPine 5 MG Tablet PO (06:29)
[2021-10-29] MEDS: Losartan Potassium 100 MG Tablet PO (06:29)
[2021-10-29] MEDS: Levothyroxine 25 MCG TABLET PO (06:29)
[2021-10-29] MEDS: Polyethylene Glycol 3350 17 GM PACKET PO (06:29)
[2021-10-29] MEDS: APIXABAN 2.5 MG TABLET PO ×2 (06:29→17:27)
[2021-10-29] MEDS: Menthol/Lanolin/Calamine/Znox 113 GM Tube 1 APPLIC TOPICAL ×2 (06:32→20:43)
[2021-10-29] MEDS: Potassium Chloride Oral Tablet 20 MEQ PO (09:19)
[2021-10-29] MEDS: Iron Polysaccharide Complex 150 MG CAPSULE PO (09:19)
[2021-10-29 10:00] VITALS: PULSE 88; RESP 16; O2SAT 98
[2021-10-29 15:21] VITALS: BP 118/46; PULSE 93; RESP 24; TEMP 36.3; O2SAT 96
[2021-10-29] MEDS: 0.9% Saline Lock 10 ML Syringe IV (17:29)
[2021-10-29] MEDS: Imipramine HCl 25 MG Tablet PO (20:45)
[2021-10-29] MEDS: Mirtazapine 15 MG Tablet 45 MG PO (20:45)
[2021-10-29] MEDS: Donepezil HCl 10 MG Tablet PO (20:46)
[2021-10-29] MEDS: Atorvastatin Calcium 10 MG Tablet PO (20:46)
[2021-10-29 23:00] VITALS: BP 160/71; PULSE 95; RESP 18; TEMP 36.4; O2SAT 94
--- NOTE | 2021-10-29 23:31 | NURSING ---
Bed alarm sounding, went into room to check on patient and she was already in the bathroom, unable to get to her before she fell into the shower. She fell onto left hip and hit head on the floor of the shower. Assisted to seated position, noted swelling and redness above left eye, small abrasion to left knee. Helped patient to toilet then back to bed. Vitals stable. She denies any pain to left hip, does have soreness above eye. Notified Dr. Bobo, verbal orders for head CT w/o contrast, left hip xray, and neuro checks. Called to update son, no answer, left message with number to return call to nurses's station.
[2021-10-30 06:00] VITALS: BP 136/81; PULSE 98
[2021-10-30] MEDS: amLODIPine 5 MG Tablet PO (06:00)
[2021-10-30] MEDS: Acetaminophen 500 MG Tablet 1000 MG PO ×3 (06:00→22:00)
[2021-10-30] MEDS: Metoprolol(XL)Succ 25 MG Tablet PO (06:00)
[2021-10-30] MEDS: Menthol/Lanolin/Calamine/Znox 113 GM Tube 1 APPLIC TOPICAL ×2 (06:00→17:00)
[2021-10-30] MEDS: APIXABAN 2.5 MG TABLET PO ×2 (06:00→18:00)
[2021-10-30] MEDS: Levothyroxine 25 MCG TABLET PO (06:00)
[2021-10-30] MEDS: Losartan Potassium 100 MG Tablet PO (06:00)
[2021-10-30] MEDS: Cholecalciferol (VIT D3) 25 MCG TABLET (1,000 UNITS) PO (06:00)
[2021-10-30] MEDS: Potassium Chloride Oral Tablet 20 MEQ PO (08:00)
[2021-10-30] MEDS: Iron Polysaccharide Complex 150 MG CAPSULE PO (08:00)
[2021-10-30] MEDS: 0.9% Saline Lock 10 ML Syringe IV (15:00)
[2021-10-30] MEDS: Imipramine HCl 25 MG Tablet PO (22:00)
[2021-10-30] MEDS: Mirtazapine 15 MG Tablet 45 MG PO (22:00)
[2021-10-30] MEDS: Atorvastatin Calcium 10 MG Tablet PO (22:00)
[2021-10-30] MEDS: Donepezil HCl 10 MG Tablet PO (22:00)
[2021-10-31] MEDS: APIXABAN 2.5 MG TABLET PO ×2 (06:02→17:11)
[2021-10-31] MEDS: Menthol/Lanolin/Calamine/Znox 113 GM Tube 1 APPLIC TOPICAL ×2 (06:02→17:11)
[2021-10-31 06:03] VITALS: BP 150/77; PULSE 94
[2021-10-31] MEDS: Acetaminophen 500 MG Tablet 1000 MG PO ×3 (06:03→22:35)
[2021-10-31] MEDS: Metoprolol(XL)Succ 25 MG Tablet PO (06:03)
[2021-10-31] MEDS: Losartan Potassium 100 MG Tablet PO (06:03)
[2021-10-31] MEDS: Cholecalciferol (VIT D3) 25 MCG TABLET (1,000 UNITS) PO (06:04)
[2021-10-31] MEDS: amLODIPine 5 MG Tablet PO (06:04)
[2021-10-31] MEDS: Levothyroxine 25 MCG TABLET PO (06:05)
[2021-10-31] MEDS: 0.9% Saline Lock 10 ML Syringe IV ×2 (06:05→13:29)
[2021-10-31] MEDS: Potassium Chloride Oral Tablet 20 MEQ PO (08:03)
[2021-10-31] MEDS: Iron Polysaccharide Complex 150 MG CAPSULE PO (08:03)
[2021-10-31 13:41] VITALS: BP 118/62; PULSE 72; RESP 16; TEMP 36.8; O2SAT 95
[2021-10-31] MEDS: Senna/Docusate Sodium 1 Tablet 2 TABLET PO (17:11)
[2021-10-31] MEDS: Mirtazapine 15 MG Tablet 45 MG PO (22:34)
[2021-10-31] MEDS: Donepezil HCl 10 MG Tablet PO (22:34)
[2021-10-31] MEDS: Atorvastatin Calcium 10 MG Tablet PO (22:34)
[2021-10-31] MEDS: Imipramine HCl 25 MG Tablet PO (22:35)
[2021-11-01] MEDS: APIXABAN 2.5 MG TABLET PO ×2 (05:12→17:52)
[2021-11-01] MEDS: Polyethylene Glycol 3350 17 GM PACKET PO (05:12)
[2021-11-01] MEDS: Acetaminophen 500 MG Tablet 1000 MG PO ×3 (05:12→21:27)
[2021-11-01] MEDS: Levothyroxine 25 MCG TABLET PO (05:12)
[2021-11-01] MEDS: Cholecalciferol (VIT D3) 25 MCG TABLET (1,000 UNITS) PO (05:13)
[2021-11-01] MEDS: Senna/Docusate Sodium 1 Tablet 2 TABLET PO ×2 (05:13→17:52)
[2021-11-01] MEDS: amLODIPine 5 MG Tablet PO (05:14)
[2021-11-01 05:15] VITALS: BP 146/69; PULSE 94
[2021-11-01] MEDS: Losartan Potassium 100 MG Tablet PO (05:15)
[2021-11-01] MEDS: Metoprolol(XL)Succ 25 MG Tablet PO (05:15)
[2021-11-01] MEDS: Menthol/Lanolin/Calamine/Znox 113 GM Tube 1 APPLIC TOPICAL ×2 (05:17→17:52)
[2021-11-01] MEDS: Iron Polysaccharide Complex 150 MG CAPSULE PO (09:09)
[2021-11-01] MEDS: Potassium Chloride Oral Tablet 20 MEQ PO (09:10)
[2021-11-01 12:12] VITALS: PULSE 89; RESP 16; O2SAT 96
[2021-11-01] MEDS: 0.9% Saline Lock 10 ML Syringe IV (12:20)
--- NOTE | 2021-11-01 14:14 | CASEMGMT ---
Addendum entered by Ramila Wells 11/02/21 13:29: Received return call. Son stated family is to have discussion this week and the goal is for son to have decision made by 11/12. SW to continue to follow. Original Note: Social Work Left message with son to follow up on DC plans. Will await return phone call. Ramila Wells ,JUAN PRODUCTION LEAD
[2021-11-01 16:57] VITALS: BP 103/57; PULSE 94; RESP 16; TEMP 36.7; O2SAT 96
--- NOTE | 2021-11-01 19:33 | PN.TCU_ITS ---
Subjective Subjective Resident seen, examined for regulatory visit. She has no new problems, concerns, issues, complaints. Objective Data Objective Data Vital Signs: Vital Signs Temp Pulse Resp BP Pulse Ox 98.0 F 94 16 103/57 L 96 11/01/21 16:57 11/01/21 16:57 11/01/21 16:57 11/01/21 16:57 11/01/21 16:57 Oxygen Flow Rate (L/min) 2 Oxygen Delivery Method Room Air Weight: 67.222 kg Body Mass Index (BMI) 26.2 Intake & Output: Intake and Output for Last 24 Hours 10/30/21 10/31/21 11/01/21 23:59 23:59 23:59 Intake Total 480 / 480 600 / 600 Balance 480 / 480 600 / 600 Medical Nutrition Assessment Dietitian: Malnutrition Criteria Met Start: 10/27/21 15:10 Freq: Status: Active Protocol: Document 10/27/21 15:10 KASANDRA (Rec: 10/27/21 15:10 [facility] [id number]) Nutrition Malnutrition Evidence of Malnutrition Exists Yes Malnutrition (severe): Acute Illness/Injury Evidenced By Suboptimal Energy Intake ( Severe),Weight Loss (Severe), Physical Changes (Mild) Intake Problem Inadequate Oral Intake Status Inactive Problem Clinical Problem Acute Disease or Injury Related Malnutrition Etiology related to covid, advanced age and alzheimers making it difficult for res to consume adequate nutrition to meet est nutritional needs Signs/Symptoms as evidenced by <50% po intake at meals and 6.3% wt loss since admission Status Active Problem Recommendation Dietitian Recommendations/Changes Continue Regular diet w/ small portions so as not to overwhelm res at meals Continue chocolate ensure compact 4oz 4x/day w/ medpass Continue fortified foods for increased nutrient density of foods consumed. Continue ensure pudding or magic cup w/ lunch and dinner trays Continue appetite stimulant May wish to consider more aggressive nutrition support to help prevent further decline in res nutritional status if in accordance w/ res /family wishes. Lab / Micro Data Result Diagrams: 10/26/21 05:28 10/26/21 05:28 Micro: Microbiology 10/07/21 10:45 Nasal Secretion SARS-CoV-2 Antigen (Rapid) - Final SARS-CoV-2 (COVID 19) Physical Exam Const alert and oriented x3 General Appearance: cooperative HEENT normocephalic Eyes PERRL and EOMs intact bilaterally Neck supple, no JVD and no carotid bruits Resp normal respiratory effort, normal air movement and clear to auscultation bilaterally Cardio regular rate and regular rhythm GI normal to inspection, nondistended, normoactive bowel sounds, non-tender and non-distended Extremity normal capillary refill General Extremity: Negative for edema Skin no rashes or lesions noted General Skin Exam: no breakdown Psych affect normal Appearance: appropriate Assessment & Plan Assessment/Plan (1) Debility: (2) Closed left hip fracture: (3) Urinary tract infection: (4) Hypertension: (5) Hypothyroidism: (6) Atrial fibrillation: (7) Alzheimer disease: (8) Insomnia: (9) Vitamin D deficiency: (10) Appetite loss: PLAN: 86 year old female with below past medical history hospitalized for left hip fracture, underwent left hip hemiarthroplasty 10/03/[address] Christiano Ward, complicated by urinary tract infection, urinary retention, admitted to TCU with debility, here for rehabilitation, strengthening, prior to discharge home with granddaughter. * Debility - PT/OT. * Cognition - ST. * Pain - Tylenol 1000mg tid, 650mg po x 1 dose prn, Oxycodone 5mg q4h prn pain (6-10). * Bowel - Miralax 17gm daily, senna/colace 2 tablets bid, Dulcolax 10mg daily prn. * Adult immunization - Administer prevnar 13, pneumovax 23, fluzone, covid19 vaccine as appropriate. * DVT prophylaxis - Not necessary, on Eliquis. * Covid19 - positive 10/07/2021, received monoclonal antibody, recovering slowly, steadily. * Hypertension - Metoprolol succinate 25mg daily, Losartan 100mg daily, Amlodipine 5mg daily. * Atrial fibrillation - Metoprolol succinate 25mg daily, Eliquis 2.5mg bid. * Hyperlipidemia - Atorvastatin 10mg qhs. * Vitamin D deficiency - D3 25mcg daily. * Alzheimer's Disease - Donepezil 10mg qhs. 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 * Hypothyroidism - Levothyroxine 25mg daily. * Depression/Appetite loss - Mirtazapine 45mg qhs. * Nutrition - Ensure Compact 110ml 4x/day. * Iron deficiency anemia - Ferrex 150mg daily. * Skin irritation - Calmoseptine topical bid. * Tinea Corporis - Nystatin powder topical bid prn. * Sore throat - Phenol 3mg q2h prn. * Hypokalemia - KCL 20meq daily. Capacity Capacity Assessment Tool Can the patient make a choice & communicate that choice?: No Can the patient understand benefits, risks and alternatives?: No Can the patient make a logical, rational choice?: No Is the choice the patient makes consistent w/ their values?: Unable to Determine Is there an impending, emergent risk to the patient?: No Does the patient have an Advance Directive?: No Is there a Surrogate Available?: Yes i.e. HCPOA: Yes i.e. close relative (spouse, child, parent, sibling)?: Yes
[2021-11-01] MEDS: Atorvastatin Calcium 10 MG Tablet PO (21:26)
[2021-11-01] MEDS: Donepezil HCl 10 MG Tablet PO (21:26)
[2021-11-01] MEDS: Mirtazapine 15 MG Tablet 45 MG PO (21:26)
[2021-11-01] MEDS: Imipramine HCl 25 MG Tablet PO (21:27)
[2021-11-02 05:54] LABS: Absolute Neutrophil Count 2.6 X10^3/uL (2.0-7.7); Basophil# 0.03 X10^3/uL; Basophil% 0.5 % (0-1); Eosinophil# 0.21 X10^3/uL; Eosinophils% 3.8 % (0-5); Hematocrit 37.2 % (37-47); Hemoglobin 11.8 g/dL (12.0-15.0); Lymphocyte % 38.5 % (19-41); Mean Corp Hgb Conc 31.7 g/dL (32-36); Mean Corpuscular Hgb 29.4 pg (27.0-32.0); Mean Corpuscular Volume 92.8 fL (81-99); Mean Platelet Vol. 9.5 fl (6.2-12.0); Monocyte# 0.49 X10^3/uL; NRBC Flagged by Analyzer 0 % (0-5); Neutrophil # 2.59 X10^3/uL (2.7-7.7); Neutrophil % 47.5 % (47-70); Platelet Count 216 K/mm3 (150-450); RBC Distribution Width CV 16.5 % (11.6-14.6); RBC Distribution Width SD 56.3 fl (35.1-43.9); Red Blood Count 4.01 M/mm3 (4.2-5.4); White Blood Count 5.5 K/mm3 (4.4-11.0)
[2021-11-02] MEDS: Polyethylene Glycol 3350 17 GM PACKET PO (06:25)
[2021-11-02] MEDS: Menthol/Lanolin/Calamine/Znox 113 GM Tube 1 APPLIC TOPICAL ×2 (06:26→17:09)
[2021-11-02] MEDS: APIXABAN 2.5 MG TABLET PO ×2 (06:26→17:09)
[2021-11-02 06:27] VITALS: BP 131/66; PULSE 97
[2021-11-02] MEDS: Senna/Docusate Sodium 1 Tablet 2 TABLET PO ×2 (06:27→17:09)
[2021-11-02] MEDS: Losartan Potassium 100 MG Tablet PO (06:27)
[2021-11-02] MEDS: Levothyroxine 25 MCG TABLET PO (06:27)
[2021-11-02] MEDS: amLODIPine 5 MG Tablet PO (06:27)
[2021-11-02] MEDS: Metoprolol(XL)Succ 25 MG Tablet PO (06:27)
[2021-11-02] MEDS: Cholecalciferol (VIT D3) 25 MCG TABLET (1,000 UNITS) PO (06:27)
[2021-11-02] MEDS: Acetaminophen 500 MG Tablet 1000 MG PO ×3 (06:28→20:29)
[2021-11-02] MEDS: 0.9% Saline Lock 10 ML Syringe IV ×2 (06:32→20:29)
[2021-11-02 06:37] LABS: Anion Gap 3 (5-15); BUN 18 mg/dL (7-18); BUN/Creat Ratio 18.7 RATIO (10-20); Calcium,Total 9.9 mg/dL (8.5-10.1); Chloride 105 mmol/L (98-107); Creatinine, Serum 0.96 mg/dL (0.55-1.02); EST Glomerular Filtration Rate 59 mL/min (>60); Est Glom Filt Rate - Afr Amer 71 mL/min (>60); Estimated Creatinine Clearance 39.25 ml/min; Glucose 100 mg/dL (74-106); Potassium 4.4 mmol/L (3.5-5.1); Sodium Level 137 mmol/L (136-145)
[2021-11-02] MEDS: Potassium Chloride Oral Tablet 20 MEQ PO (09:38)
[2021-11-02] MEDS: Iron Polysaccharide Complex 150 MG CAPSULE PO (09:38)
[2021-11-02 13:32] VITALS: BP 110/60; PULSE 96; RESP 16; TEMP 36.3; O2SAT 98
--- NOTE | 2021-11-02 16:13 | NURSING ---
Resident and son, Fritz, notified of staff member testing positive for COVID.
[2021-11-02] MEDS: Mirtazapine 15 MG Tablet 45 MG PO (20:29)
[2021-11-02] MEDS: Atorvastatin Calcium 10 MG Tablet PO (20:29)
[2021-11-02] MEDS: Imipramine HCl 25 MG Tablet PO (20:29)
[2021-11-02] MEDS: Donepezil HCl 10 MG Tablet PO (20:29)
[2021-11-03] MEDS: Acetaminophen 500 MG Tablet 1000 MG PO ×3 (05:34→20:49)
[2021-11-03] MEDS: Senna/Docusate Sodium 1 Tablet 2 TABLET PO ×2 (05:34→18:06)
[2021-11-03] MEDS: Polyethylene Glycol 3350 17 GM PACKET PO (05:34)
[2021-11-03 05:35] VITALS: BP 140/74; PULSE 94
[2021-11-03] MEDS: amLODIPine 5 MG Tablet PO (05:35)
[2021-11-03] MEDS: Levothyroxine 25 MCG TABLET PO (05:35)
[2021-11-03] MEDS: APIXABAN 2.5 MG TABLET PO ×2 (05:35→18:06)
[2021-11-03] MEDS: Losartan Potassium 100 MG Tablet PO (05:35)
[2021-11-03] MEDS: Metoprolol(XL)Succ 25 MG Tablet PO (05:35)
[2021-11-03] MEDS: Cholecalciferol (VIT D3) 25 MCG TABLET (1,000 UNITS) PO (05:35)
[2021-11-03] MEDS: Menthol/Lanolin/Calamine/Znox 113 GM Tube 1 APPLIC TOPICAL ×2 (05:38→18:06)
[2021-11-03] MEDS: Potassium Chloride Oral Tablet 20 MEQ PO (09:31)
[2021-11-03] MEDS: Iron Polysaccharide Complex 150 MG CAPSULE PO (09:31)
[2021-11-03] MEDS: 0.9% Saline Lock 10 ML Syringe IV (09:35)
[2021-11-03 10:00] VITALS: PULSE 101; RESP 18; O2SAT 96
[2021-11-03 13:29] VITALS: BP 109/53; PULSE 94; RESP 16; TEMP 36.6; O2SAT 98
[2021-11-03] MEDS: Atorvastatin Calcium 10 MG Tablet PO (20:47)
[2021-11-03] MEDS: Donepezil HCl 10 MG Tablet PO (20:47)
[2021-11-03] MEDS: Mirtazapine 15 MG Tablet 45 MG PO (20:48)
[2021-11-03] MEDS: Imipramine HCl 25 MG Tablet PO (20:49)
[2021-11-04] MEDS: Polyethylene Glycol 3350 17 GM PACKET PO (06:15)
[2021-11-04] MEDS: Levothyroxine 25 MCG TABLET PO (06:17)
[2021-11-04 06:18] VITALS: BP 156/89; PULSE 89
[2021-11-04] MEDS: Acetaminophen 500 MG Tablet 1000 MG PO ×3 (06:18→20:05)
[2021-11-04] MEDS: Losartan Potassium 100 MG Tablet PO (06:18)
[2021-11-04] MEDS: Metoprolol(XL)Succ 25 MG Tablet PO (06:18)
[2021-11-04] MEDS: Cholecalciferol (VIT D3) 25 MCG TABLET (1,000 UNITS) PO (06:18)
[2021-11-04] MEDS: Senna/Docusate Sodium 1 Tablet 2 TABLET PO ×2 (06:18→17:15)
[2021-11-04] MEDS: Menthol/Lanolin/Calamine/Znox 113 GM Tube 1 APPLIC TOPICAL ×2 (06:19→17:14)
[2021-11-04] MEDS: amLODIPine 5 MG Tablet PO (06:19)
[2021-11-04] MEDS: APIXABAN 2.5 MG TABLET PO ×2 (06:19→17:16)
[2021-11-04] MEDS: Iron Polysaccharide Complex 150 MG CAPSULE PO (09:26)
[2021-11-04] MEDS: Potassium Chloride Oral Tablet 20 MEQ PO (09:26)
[2021-11-04 13:04] VITALS: BP 116/60; PULSE 95; RESP 16; TEMP 36.2; O2SAT 98
--- NOTE | 2021-11-04 14:02 | NURSING ---
Resident and son, Fritz, notified of a resident on the unit testing positive for Covid.
[2021-11-04 19:57] VITALS: PULSE 92; RESP 16; O2SAT 94
[2021-11-04] MEDS: Atorvastatin Calcium 10 MG Tablet PO (20:04)
[2021-11-04] MEDS: Mirtazapine 15 MG Tablet 45 MG PO (20:04)
[2021-11-04] MEDS: Donepezil HCl 10 MG Tablet PO (20:05)
[2021-11-04] MEDS: Imipramine HCl 25 MG Tablet PO (20:05)
[2021-11-05 05:35] VITALS: BP 159/73; PULSE 96
[2021-11-05] MEDS: Polyethylene Glycol 3350 17 GM PACKET PO (05:36)
[2021-11-05 05:37] VITALS: PULSE 96
[2021-11-05] MEDS: Acetaminophen 500 MG Tablet 1000 MG PO ×3 (05:37→20:37)
[2021-11-05] MEDS: APIXABAN 2.5 MG TABLET PO ×2 (05:37→17:33)
[2021-11-05] MEDS: Senna/Docusate Sodium 1 Tablet 2 TABLET PO ×2 (05:37→17:34)
[2021-11-05] MEDS: Metoprolol(XL)Succ 25 MG Tablet PO (05:37)
[2021-11-05] MEDS: Cholecalciferol (VIT D3) 25 MCG TABLET (1,000 UNITS) PO (05:37)
[2021-11-05] MEDS: Levothyroxine 25 MCG TABLET PO (05:38)
[2021-11-05] MEDS: Losartan Potassium 100 MG Tablet PO (05:38)
[2021-11-05] MEDS: amLODIPine 5 MG Tablet PO (05:38)
[2021-11-05] MEDS: Menthol/Lanolin/Calamine/Znox 113 GM Tube 1 APPLIC TOPICAL ×2 (05:38→17:34)
[2021-11-05] MEDS: Iron Polysaccharide Complex 150 MG CAPSULE PO (08:53)
[2021-11-05] MEDS: Potassium Chloride Oral Tablet 20 MEQ PO (08:53)
[2021-11-05 14:15] VITALS: BP 115/54; PULSE 73; RESP 17; TEMP 36.6; O2SAT 98
[2021-11-05] MEDS: Donepezil HCl 10 MG Tablet PO (20:37)
[2021-11-05] MEDS: Imipramine HCl 25 MG Tablet PO (20:37)
[2021-11-05] MEDS: Mirtazapine 15 MG Tablet 45 MG PO (20:37)
[2021-11-05] MEDS: Atorvastatin Calcium 10 MG Tablet PO (20:37)
[2021-11-06] MEDS: Polyethylene Glycol 3350 17 GM PACKET PO (05:11)
[2021-11-06 05:13] VITALS: BP 145/76; PULSE 91
[2021-11-06] MEDS: amLODIPine 5 MG Tablet PO (05:13)
[2021-11-06] MEDS: APIXABAN 2.5 MG TABLET PO ×2 (05:13→16:58)
[2021-11-06] MEDS: Metoprolol(XL)Succ 25 MG Tablet PO (05:13)
[2021-11-06] MEDS: Senna/Docusate Sodium 1 Tablet 2 TABLET PO ×2 (05:14→16:57)
[2021-11-06] MEDS: Acetaminophen 500 MG Tablet 1000 MG PO ×3 (05:14→20:19)
[2021-11-06] MEDS: Menthol/Lanolin/Calamine/Znox 113 GM Tube 1 APPLIC TOPICAL ×2 (05:14→16:57)
[2021-11-06] MEDS: Losartan Potassium 100 MG Tablet PO (05:14)
[2021-11-06] MEDS: Cholecalciferol (VIT D3) 25 MCG TABLET (1,000 UNITS) PO (05:14)
[2021-11-06] MEDS: Levothyroxine 25 MCG TABLET PO (05:14)
[2021-11-06] MEDS: 0.9% Saline Lock 10 ML Syringe IV ×2 (05:19→14:49)
[2021-11-06] MEDS: Iron Polysaccharide Complex 150 MG CAPSULE PO (09:23)
[2021-11-06] MEDS: Potassium Chloride Oral Tablet 20 MEQ PO (09:23)
[2021-11-06 14:49] VITALS: BP 120/58; PULSE 84; RESP 16; TEMP 36.8; O2SAT 95
[2021-11-06 16:43] VITALS: PULSE 87; RESP 16; O2SAT 96
[2021-11-06] MEDS: Mirtazapine 15 MG Tablet 45 MG PO (20:18)
[2021-11-06] MEDS: Imipramine HCl 25 MG Tablet PO (20:21)
[2021-11-06] MEDS: Atorvastatin Calcium 10 MG Tablet PO (20:22)
[2021-11-06] MEDS: Donepezil HCl 10 MG Tablet PO (20:23)
[2021-11-07] MEDS: Cholecalciferol (VIT D3) 25 MCG TABLET (1,000 UNITS) PO (05:20)
[2021-11-07] MEDS: Senna/Docusate Sodium 1 Tablet 2 TABLET PO (05:20)
[2021-11-07] MEDS: Polyethylene Glycol 3350 17 GM PACKET PO (05:20)
[2021-11-07] MEDS: Acetaminophen 500 MG Tablet 1000 MG PO ×3 (05:20→22:16)
[2021-11-07 05:21] VITALS: BP 132/74; PULSE 88
[2021-11-07] MEDS: Menthol/Lanolin/Calamine/Znox 113 GM Tube 1 APPLIC TOPICAL ×2 (05:21→17:32)
[2021-11-07] MEDS: Levothyroxine 25 MCG TABLET PO (05:21)
[2021-11-07] MEDS: amLODIPine 5 MG Tablet PO (05:21)
[2021-11-07] MEDS: Losartan Potassium 100 MG Tablet PO (05:21)
[2021-11-07] MEDS: APIXABAN 2.5 MG TABLET PO ×2 (05:21→17:32)
[2021-11-07] MEDS: Metoprolol(XL)Succ 25 MG Tablet PO (05:21)
[2021-11-07] MEDS: Iron Polysaccharide Complex 150 MG CAPSULE PO (08:06)
[2021-11-07] MEDS: Potassium Chloride Oral Tablet 20 MEQ PO (08:06)
[2021-11-07] MEDS: 0.9% Saline Lock 10 ML Syringe IV (08:11)
[2021-11-07 11:46] VITALS: PULSE 93; RESP 16; O2SAT 97
[2021-11-07 16:00] VITALS: BP 136/64; PULSE 89; RESP 15; TEMP 36.4; O2SAT 94
[2021-11-07] MEDS: Mirtazapine 15 MG Tablet 45 MG PO (22:15)
[2021-11-07] MEDS: Donepezil HCl 10 MG Tablet PO (22:16)
[2021-11-07] MEDS: Atorvastatin Calcium 10 MG Tablet PO (22:16)
[2021-11-07] MEDS: Imipramine HCl 25 MG Tablet PO (22:16)
[2021-11-08] MEDS: Menthol/Lanolin/Calamine/Znox 113 GM Tube 1 APPLIC TOPICAL ×2 (05:43→17:17)
[2021-11-08] MEDS: APIXABAN 2.5 MG TABLET PO ×2 (05:44→17:17)
[2021-11-08] MEDS: Acetaminophen 500 MG Tablet 1000 MG PO ×3 (05:44→20:25)
[2021-11-08 05:45] VITALS: BP 144/81; PULSE 87
[2021-11-08] MEDS: Metoprolol(XL)Succ 25 MG Tablet PO (05:45)
[2021-11-08] MEDS: Levothyroxine 25 MCG TABLET PO (05:45)
[2021-11-08] MEDS: Losartan Potassium 100 MG Tablet PO (05:45)
[2021-11-08] MEDS: Cholecalciferol (VIT D3) 25 MCG TABLET (1,000 UNITS) PO (05:45)
[2021-11-08] MEDS: amLODIPine 5 MG Tablet PO (05:45)
[2021-11-08] MEDS: Senna/Docusate Sodium 1 Tablet 2 TABLET PO ×2 (05:46→17:17)
[2021-11-08] MEDS: 0.9% Saline Lock 10 ML Syringe IV ×2 (05:48→17:20)
[2021-11-08] MEDS: Potassium Chloride Oral Tablet 20 MEQ PO (08:56)
[2021-11-08] MEDS: Iron Polysaccharide Complex 150 MG CAPSULE PO (08:56)
--- NOTE | 2021-11-08 10:13 | CASEMGMT ---
Social Work Contacted son to f/u on DC plans. Family is in agreement for pt to DC to [facility]. They have calls placed to [facility] and [facility] in [place]. Referrals made to both ALs. SW to continue to follow. Ramila Wells, ARCHITECTURE FACULTY MEMBER MASTER [place]
[2021-11-08 15:03] VITALS: BP 114/58; PULSE 78; RESP 16; TEMP 37; O2SAT 98
[2021-11-08] MEDS: Mirtazapine 15 MG Tablet 45 MG PO (20:23)
[2021-11-08] MEDS: Imipramine HCl 25 MG Tablet PO (20:24)
[2021-11-08] MEDS: Donepezil HCl 10 MG Tablet PO (20:24)
[2021-11-08] MEDS: Atorvastatin Calcium 10 MG Tablet PO (20:24)
[2021-11-09 05:49] VITALS: BP 120/65; PULSE 80
[2021-11-09] MEDS: Menthol/Lanolin/Calamine/Znox 113 GM Tube 1 APPLIC TOPICAL ×2 (05:50→17:03)
[2021-11-09 05:51] VITALS: BP 120/65; PULSE 80
[2021-11-09] MEDS: Acetaminophen 500 MG Tablet 1000 MG PO ×3 (05:51→20:24)
[2021-11-09] MEDS: amLODIPine 5 MG Tablet PO (05:51)
[2021-11-09] MEDS: Losartan Potassium 100 MG Tablet PO (05:51)
[2021-11-09] MEDS: Senna/Docusate Sodium 1 Tablet 2 TABLET PO ×2 (05:51→17:04)
[2021-11-09] MEDS: Metoprolol(XL)Succ 25 MG Tablet PO (05:51)
[2021-11-09] MEDS: APIXABAN 2.5 MG TABLET PO ×2 (05:52→17:04)
[2021-11-09] MEDS: Levothyroxine 25 MCG TABLET PO (05:52)
[2021-11-09] MEDS: Cholecalciferol (VIT D3) 25 MCG TABLET (1,000 UNITS) PO (05:52)
[2021-11-09] MEDS: 0.9% Saline Lock 10 ML Syringe IV (05:53)
[2021-11-09] MEDS: Iron Polysaccharide Complex 150 MG CAPSULE PO (09:07)
[2021-11-09] MEDS: Potassium Chloride Oral Tablet 20 MEQ PO (09:07)
[2021-11-09] MEDS: oxyCODONE 5 MG Tablet PO (11:05)
[2021-11-09 13:35] VITALS: BP 130/64; PULSE 103; RESP 18; TEMP 36.3; O2SAT 96
[2021-11-09] MEDS: Mirtazapine 15 MG Tablet 45 MG PO (20:24)
[2021-11-09] MEDS: Atorvastatin Calcium 10 MG Tablet PO (20:24)
[2021-11-09] MEDS: Imipramine HCl 25 MG Tablet PO (20:24)
[2021-11-09] MEDS: Donepezil HCl 10 MG Tablet PO (20:24)
--- NOTE | 2021-11-10 00:47 | NURSING ---
PICC to left upper arm removed. Catheter length 45, tip intact. Patient tolerated well. Slight pressure applied. Gauze applied, secured with tape. Will continue to monitor.
[2021-11-10] MEDS: Menthol/Lanolin/Calamine/Znox 113 GM Tube 1 APPLIC TOPICAL ×2 (05:43→18:32)
[2021-11-10] MEDS: amLODIPine 5 MG Tablet PO (05:44)
[2021-11-10] MEDS: Senna/Docusate Sodium 1 Tablet 2 TABLET PO ×2 (05:44→18:29)
[2021-11-10] MEDS: Levothyroxine 25 MCG TABLET PO (05:44)
[2021-11-10] MEDS: APIXABAN 2.5 MG TABLET PO ×2 (05:44→18:29)
[2021-11-10] MEDS: Cholecalciferol (VIT D3) 25 MCG TABLET (1,000 UNITS) PO (05:44)
[2021-11-10 05:45] VITALS: BP 141/72; PULSE 85
[2021-11-10] MEDS: Metoprolol(XL)Succ 25 MG Tablet PO (05:45)
[2021-11-10] MEDS: Polyethylene Glycol 3350 17 GM PACKET PO (05:45)
[2021-11-10] MEDS: Losartan Potassium 100 MG Tablet PO (05:45)
[2021-11-10] MEDS: Acetaminophen 500 MG Tablet 1000 MG PO ×3 (05:45→21:38)
[2021-11-10] MEDS: Potassium Chloride Oral Tablet 20 MEQ PO (07:59)
[2021-11-10] MEDS: Iron Polysaccharide Complex 150 MG CAPSULE PO (07:59)
[2021-11-10 15:14] VITALS: BP 135/59; PULSE 83; RESP 16; TEMP 36.6; O2SAT 95
--- NOTE | 2021-11-10 15:43 | CASEMGMT ---
Addendum entered by Ramila Wells 11/11/21 16:15: [facility] is unable to service that area. Contacted [facility] for a HHC company - they use [facility]. Spoke to son and he is agreeable. Referral made to [facility] PT/OT Addendum entered by Ramila Wells 11/10/21 15:51: Spoke with son - confirmed DC 11/16 and son, Wilmar, will be picking up and transferring pt to [facility]. Son made it clear for no other family members to be involved in DC plans and to defer all questions to son, Fritz or Wilmar. Staff aware, but reinforced by this worker. Son agreeable to [facility] PT/OT and for [facility]. Referral made to [facility] PT/OT. No DME needs. Plan: DC to [facility] [place] 11/16, [facility] PT/OT Original Note: Social Work Followed up with [facility] and [facility] - both can accept, but unsure who is FOC. Left message for son to follow up on DC plan. Received return voicemail from son. [facility] is [facility] and they most likely have a bed 11/16. Updated IDT for EDC 11/16 to [facility]. SW to order C PT/OT, as indicated. Will await finalization from son. SW to continue to follow. JUAN MarshW
[2021-11-10] MEDS: Imipramine HCl 25 MG Tablet PO (21:37)
[2021-11-10] MEDS: Mirtazapine 15 MG Tablet 45 MG PO (21:37)
[2021-11-10] MEDS: Donepezil HCl 10 MG Tablet PO (21:37)
[2021-11-10] MEDS: Atorvastatin Calcium 10 MG Tablet PO (21:37)
[2021-11-11] MEDS: Senna/Docusate Sodium 1 Tablet 2 TABLET PO (06:09)
[2021-11-11] MEDS: Losartan Potassium 100 MG Tablet PO (06:09)
[2021-11-11 06:10] VITALS: BP 139/70; PULSE 85
[2021-11-11] MEDS: Polyethylene Glycol 3350 17 GM PACKET PO (06:10)
[2021-11-11] MEDS: Metoprolol(XL)Succ 25 MG Tablet PO (06:10)
[2021-11-11] MEDS: Acetaminophen 500 MG Tablet 1000 MG PO ×3 (06:10→21:09)
[2021-11-11] MEDS: Cholecalciferol (VIT D3) 25 MCG TABLET (1,000 UNITS) PO (06:10)
[2021-11-11] MEDS: amLODIPine 5 MG Tablet PO (06:10)
[2021-11-11] MEDS: APIXABAN 2.5 MG TABLET PO ×2 (06:10→18:32)
[2021-11-11] MEDS: Levothyroxine 25 MCG TABLET PO (06:10)
[2021-11-11] MEDS: Menthol/Lanolin/Calamine/Znox 113 GM Tube 1 APPLIC TOPICAL ×2 (06:11→18:32)
[2021-11-11] MEDS: Potassium Chloride Oral Tablet 20 MEQ PO (07:55)
[2021-11-11] MEDS: Iron Polysaccharide Complex 150 MG CAPSULE PO (07:55)
[2021-11-11 13:17] VITALS: BP 124/69; PULSE 86; RESP 16; TEMP 36.2; O2SAT 96
[2021-11-11 13:32] VITALS: PULSE 86; RESP 16; O2SAT 96
[2021-11-11] MEDS: Atorvastatin Calcium 10 MG Tablet PO (21:07)
[2021-11-11] MEDS: Imipramine HCl 25 MG Tablet PO (21:08)
[2021-11-11] MEDS: Donepezil HCl 10 MG Tablet PO (21:08)
[2021-11-11] MEDS: Mirtazapine 15 MG Tablet 45 MG PO (21:08)
[2021-11-12] MEDS: Polyethylene Glycol 3350 17 GM PACKET PO (06:03)
[2021-11-12] MEDS: Senna/Docusate Sodium 1 Tablet 2 TABLET PO ×2 (06:04→17:33)
[2021-11-12] MEDS: Acetaminophen 500 MG Tablet 1000 MG PO ×3 (06:04→20:09)
[2021-11-12] MEDS: Losartan Potassium 100 MG Tablet PO (06:04)
[2021-11-12] MEDS: APIXABAN 2.5 MG TABLET PO ×2 (06:04→17:33)
[2021-11-12 06:05] VITALS: BP 155/82; PULSE 87
[2021-11-12] MEDS: Metoprolol(XL)Succ 25 MG Tablet PO (06:05)
[2021-11-12] MEDS: Levothyroxine 25 MCG TABLET PO (06:05)
[2021-11-12] MEDS: Cholecalciferol (VIT D3) 25 MCG TABLET (1,000 UNITS) PO (06:05)
[2021-11-12] MEDS: amLODIPine 5 MG Tablet PO (06:05)
[2021-11-12] MEDS: Menthol/Lanolin/Calamine/Znox 113 GM Tube 1 APPLIC TOPICAL ×2 (06:05→17:33)
[2021-11-12] MEDS: Iron Polysaccharide Complex 150 MG CAPSULE PO (10:02)
[2021-11-12] MEDS: Potassium Chloride Oral Tablet 20 MEQ PO (10:02)
--- NOTE | 2021-11-12 13:35 | PCM.DC.SUM ---
Providers Date of Admission: 10/04/21 Primary Care Physician: Dr. Rom Burns MD Reason For Visit: LEFT HIP FX Diagnosis Discharge Diagnosis (1) Debility: Status: Acute Code(s): R53.81 - Other malaise (2) Closed left hip fracture: Status: Acute Code(s): S72.002A - Fracture of unspecified part of neck of left femur, initial encounter for closed fracture (3) Urinary tract infection: Status: Acute Code(s): N39.0 - Urinary tract infection, site not specified (4) Hypertension: Status: Chronic Code(s): I10 - Essential (primary) hypertension (5) Hypothyroidism: Status: Acute Code(s): E03.9 - Hypothyroidism, unspecified (6) Atrial fibrillation: Status: Acute Code(s): I48.91 - Unspecified atrial fibrillation (7) Alzheimer disease: Status: Acute Code(s): G30.9 - Alzheimer's disease, unspecified; F02.80 - Dementia in other diseases classified elsewhere without behavioral disturbance (8) Insomnia: Status: Acute Code(s): G47.00 - Insomnia, unspecified (9) Vitamin D deficiency: Status: Acute Code(s): E55.9 - Vitamin D deficiency, unspecified (10) Appetite loss: Status: Acute Code(s): R63.0 - Anorexia Medications at Discharge Home Medications atorvastatin 10 mg tablet 10 mg PO QDAY 30 Days #30 tab 10/06/17 donepezil 10 mg tablet 10 mg PO DAILY 30 Days #30 10/06/17 imipramine HCl 25 mg tablet 25 mg PO QHS 30 Days #30 tab 10/06/17 levothyroxine 25 mcg tablet 25 mcg PO QDAY 30 Days #30 tab 10/06/17 losartan 100 mg tablet 100 mg PO QDAY 30 Days #30 tab 10/06/17 metoprolol succinate 25 mg tablet,extended release 24 hr 25 mg PO QDAY 30 Days #30 tab 10/06/17 Mirtazapine 45 mg PO DAILY 12/04/20 amlodipine 5 mg PO/SL DAILY 10/01/21 Eliquis 2.5 mg PO BID 10/04/21 cholecalciferol (vitamin D3) 25 mcg PO DAILY #0 tab 11/12/21 polysaccharide iron complex [Ferrex 150] 150 mg PO DAILYCM 30 Days #30 cap 11/12/21 potassium chloride [Klor-Con M20] 20 meq PO DAILYCM 30 Days #30 tab 11/12/21 Hospital Course Operations - (Left hip hemiarthroplasty.) Procedures None Summary of Care Provided Minutes Spent on Discharge: 35 Hospital Course: 86 year old female with below past medical history hospitalized for left hip fracture, underwent left hip hemiarthroplasty 10/03/[address] Christiano Ward, complicated by urinary tract infection, urinary retention, admitted to TCU with debility, here for rehabilitation, strengthening, prior to discharge home with granddaughter. Covid19 10/07/2021, Monoclonal antibody given. Discharge to [facility] 11/16/2021, [facility] PT/OT. Physical Exam Const alert and oriented x3 General Appearance: cooperative HEENT normocephalic Eyes PERRL and EOMs intact bilaterally Neck supple, no JVD and no carotid bruits Resp normal respiratory effort, normal air movement and clear to auscultation bilaterally Cardio regular rate and regular rhythm GI normal to inspection, nondistended, normoactive bowel sounds, non-tender and non-distended Extremity normal capillary refill General Extremity: Negative for edema Skin no rashes or lesions noted General Skin Exam: no breakdown Psych affect normal Appearance: appropriate Medical Records Data Medical Nutrition Assessment Dietitian: Malnutrition Criteria Met Start: 10/27/21 15:10 Freq: Status: Active Protocol: Document 10/27/21 15:10 [facility] (Rec: 10/27/21 15:10 [facility] [id number]) Nutrition Malnutrition Evidence of Malnutrition Exists Yes Malnutrition (severe): Acute Illness/Injury Evidenced By Suboptimal Energy Intake ( Severe),Weight Loss (Severe), Physical Changes (Mild) Intake Problem Inadequate Oral Intake Status Inactive Problem Clinical Problem Acute Disease or Injury Related Malnutrition Etiology related to covid, advanced age and alzheimers making it difficult for res to consume adequate nutrition to meet est nutritional needs Signs/Symptoms as evidenced by <50% po intake at meals and 6.3% wt loss since admission Status Active Problem Recommendation Dietitian Recommendations/Changes Continue Regular diet w/ small portions so as not to overwhelm res at meals Continue chocolate ensure compact 4oz 4x/day w/ medpass Continue fortified foods for increased nutrient density of foods consumed. Continue ensure pudding or magic cup w/ lunch and dinner trays Continue appetite stimulant May wish to consider more aggressive nutrition support to help prevent further decline in res nutritional status if in accordance w/ res /family wishes. Weight / BMI Weight Weight: 65.408 kg Body Mass Index (BMI) 26.2 ABG / Lab / Microbiology Data Result Diagrams: 11/02/21 05:23 11/02/21 05:23 Microbiology: Microbiology 10/07/21 10:45 Nasal Secretion SARS-CoV-2 Antigen (Rapid) - Final SARS-CoV-2 (COVID 19) D/C Instructions Discharge Diet: No restrictions Discharge Activity: Return to Normal Activity, May Shower and Use Walker Weight Bearing Status: Weight bearing as tolerated (Left lower extremity.) Call your doctor if you observe: Fever of 101 or Higher, Inability to urinate, Inability to have a bowel movement, Shortness of breath, Dizziness, Fainting spells, Swelling in the ankles, Chest pain and Uncontrolled pain Additional Instructions: Discharge to [facility] 11/16/2021, [facility] PT/OT. Please Follow Up With: Christiano Ward MD (will see JACOB Alejandro) When: As scheduled. Meaningful Use Info Meaningful Use Diagnoses (Choose all that apply): None applicable Discharge Plan Admission Admit Date/Time: 10/04/21 18:45 Primary Reason for Your Visit: Debility. Attending Provider: David Bobo Chi Primary Care Provider: Rom Burns Instructions Additional Instructions / Restrictions: No Covid Booster or pneumonia until 01/05/22. Had Monoclonal Antibodies on 10/08/21. Discharge to [facility] 11/16/2021, [facility] PT/OT. Discharge Orders/Prescriptions Prescriptions: New polysaccharide iron complex [Ferrex 150] 150 mg iron Capsule 150 mg PO DAILYCM 30 Days Qty: 30 RF: 0 potassium chloride [Klor-Con M20] 20 mEq Tablet,Er Particles/Crystals 20 meq PO DAILYCM 30 Days Qty: 30 RF: 0 cholecalciferol (vitamin D3) 25 mcg (1,000 unit) Tablet 25 mcg PO DAILY Qty: 0 RF: 0 Continued levothyroxine 25 mcg tablet 25 mcg PO QDAY 30 Days Qty: 30 RF: 0 losartan 100 mg tablet 100 mg PO QDAY 30 Days Qty: 30 RF: 0 metoprolol succinate 25 mg tablet extended release 24 hr 25 mg PO QDAY 30 Days Qty: 30 RF: 0 atorvastatin 10 mg tablet 10 mg PO QDAY 30 Days Qty: 30 RF: 0 imipramine HCl 25 mg tablet 25 mg PO QHS 30 Days Qty: 30 RF: 0 donepezil 10 mg tablet 10 mg PO DAILY 30 Days Qty: 30 RF: 0 Mirtazapine 45 mg PO DAILY RF: 0 amlodipine 5 mg PO/SL DAILY RF: 0 Eliquis 5 mg tablet 2.5 mg PO BID RF: 0 Discontinued cholecalciferol (vitamin D3) 5,000 unit capsule 5,000 unit PO .2xweek RF: 0 sennosides-docusate sodium [Stool Softener-Stimulant Laxat] 8.6-50 mg Tablet 2 tab PO BID PRN (Reason: Constipation) Qty: 0 RF: 0 oxycodone 5 mg Tablet 5 mg PO Q6H PRN PRN (Reason: Pain Score 6-10) Qty: 0 RF: 0 acetaminophen 500 mg tablet 1,000 mg PO TID RF: 0 doxycycline monohydrate 100 mg capsule 100 mg PO BID RF: 0 Referrals / Follow Up: Rom Burns MD [Primary Care Provider] - (after d/c from TCU) Christiano Ward MD [STAFF PHYSICIAN] - 10/22/21 1:15 pm (Pt to see Clarita JAMES ) Disposition Disposition (needs filled in before D/C Order can be placed): Assisted Living
--- NOTE | 2021-11-12 13:45 | TREXTCAR_ITS ---
Diet 10/04/21 19:49 Diet: Regular - General Type of Dietary Supplement:: EP or MC w/ L&D Diet Comments: small portions, fortified foods Routine Orders/Code Status Code Status: Full Code Wound(s) LEFT HIP SURGICAL SITE: Wound Type: Surgical Incision Rt elbow: Wound Type: Skin Tear Dressing Change: adaptic lt buttock: Wound Type: shearing Dressing Change: cady Therapies Weight Bearing: Weight bearing as tolerated Problem/Diagnosis (1) Debility: Status: Acute (2) Closed left hip fracture: Status: Acute (3) Urinary tract infection: Status: Acute (4) Hypertension: Status: Chronic (5) Hypothyroidism: Status: Acute (6) Atrial fibrillation: Status: Acute (7) Alzheimer disease: Status: Acute (8) Insomnia: Status: Acute (9) Vitamin D deficiency: Status: Acute (10) Appetite loss: Status: Acute Allergies/Procedures Done in Hospital Allergies No Known Allergies Allergy (Verified 09/25/21 14:09) Procedures: None Type of Care/Length of Stay Estimated LOS: More Than 30 Days Type of Care Needed: Nursing Home/Assisted Living Rehab Potential: Poor Prognosis: Poor Additional Orders/Day of Discharge Day of Discharge: 11/16/21 Dietary and Speech Recommendations Dietitian Recommendations/Changes: Continue Regular diet w/ small portions so as not to overwhelm res at meals Continue chocolate ensure compact 4oz 4x/day w/ medpass Continue fortified foods for increased nutrient density of foods consumed. Continue ensure pudding or magic cup w/ lunch and dinner trays Continue appetite stimulant Follow Up Care Please Follow Up With: Christiano Ward MD (will see JACOB Alejandro) Discharge Plan Admission Admit Date/Time: 10/04/21 18:45 Primary Reason for Your Visit: Debility. Attending Provider: David Bobo Chi Primary Care Provider: Rom Burns Instructions Additional Instructions / Restrictions: No Covid Booster or pneumonia until 01/05/22. Had Monoclonal Antibodies on 10/08/21. Discharge to [facility] 11/16/2021, [facility] PT/OT. Discharge Orders/Prescriptions Prescriptions: New polysaccharide iron complex [Ferrex 150] 150 mg iron Capsule 150 mg PO DAILYCM 30 Days Qty: 30 RF: 0 potassium chloride [Klor-Con M20] 20 mEq Tablet,Er Particles/Crystals 20 meq PO DAILYCM 30 Days Qty: 30 RF: 0 cholecalciferol (vitamin D3) 25 mcg (1,000 unit) Tablet 25 mcg PO DAILY Qty: 0 RF: 0 Continued levothyroxine 25 mcg tablet 25 mcg PO QDAY 30 Days Qty: 30 RF: 0 losartan 100 mg tablet 100 mg PO QDAY 30 Days Qty: 30 RF: 0 metoprolol succinate 25 mg tablet extended release 24 hr 25 mg PO QDAY 30 Days Qty: 30 RF: 0 atorvastatin 10 mg tablet 10 mg PO QDAY 30 Days Qty: 30 RF: 0 imipramine HCl 25 mg tablet 25 mg PO QHS 30 Days Qty: 30 RF: 0 donepezil 10 mg tablet 10 mg PO DAILY 30 Days Qty: 30 RF: 0 Mirtazapine 45 mg PO DAILY RF: 0 amlodipine 5 mg PO/SL DAILY RF: 0 Eliquis 5 mg tablet 2.5 mg PO BID RF: 0 Discontinued cholecalciferol (vitamin D3) 5,000 unit capsule 5,000 unit PO .2xweek RF: 0 sennosides-docusate sodium [Stool Softener-Stimulant Laxat] 8.6-50 mg Tablet 2 tab PO BID PRN (Reason: Constipation) Qty: 0 RF: 0 oxycodone 5 mg Tablet 5 mg PO Q6H PRN PRN (Reason: Pain Score 6-10) Qty: 0 RF: 0 acetaminophen 500 mg tablet 1,000 mg PO TID RF: 0 doxycycline monohydrate 100 mg capsule 100 mg PO BID RF: 0 Referrals / Follow Up: Rom Burns MD [Primary Care Provider] - (after d/c from [facility]) Christiano Ward MD [STAFF PHYSICIAN] - 10/22/21 1:15 pm (Pt to see Clarita JAMES ) Disposition Disposition (needs filled in before D/C Order can be placed): Assisted Living
[2021-11-12 14:28] VITALS: BP 126/65; PULSE 85; RESP 17; TEMP 36.6; O2SAT 100
[2021-11-12] MEDS: Imipramine HCl 25 MG Tablet PO (20:09)
[2021-11-12] MEDS: Donepezil HCl 10 MG Tablet PO (20:09)
[2021-11-12] MEDS: Atorvastatin Calcium 10 MG Tablet PO (20:09)
[2021-11-12] MEDS: Mirtazapine 15 MG Tablet 45 MG PO (20:09)
[2021-11-13] MEDS: Menthol/Lanolin/Calamine/Znox 113 GM Tube 1 APPLIC TOPICAL ×2 (05:33→17:48)
[2021-11-13] MEDS: Acetaminophen 500 MG Tablet 1000 MG PO ×3 (05:33→20:25)
[2021-11-13] MEDS: Polyethylene Glycol 3350 17 GM PACKET PO (05:33)
[2021-11-13 05:34] VITALS: BP 150/70; PULSE 84
[2021-11-13] MEDS: Cholecalciferol (VIT D3) 25 MCG TABLET (1,000 UNITS) PO (05:34)
[2021-11-13] MEDS: amLODIPine 5 MG Tablet PO (05:34)
[2021-11-13] MEDS: Levothyroxine 25 MCG TABLET PO (05:34)
[2021-11-13] MEDS: Metoprolol(XL)Succ 25 MG Tablet PO (05:34)
[2021-11-13] MEDS: Senna/Docusate Sodium 1 Tablet 2 TABLET PO ×2 (05:36→17:48)
[2021-11-13] MEDS: APIXABAN 2.5 MG TABLET PO ×2 (05:36→17:48)
[2021-11-13] MEDS: Losartan Potassium 100 MG Tablet PO (05:37)
[2021-11-13] MEDS: Iron Polysaccharide Complex 150 MG CAPSULE PO (08:24)
[2021-11-13] MEDS: Potassium Chloride Oral Tablet 20 MEQ PO (08:24)
[2021-11-13 15:06] VITALS: BP 123/55; PULSE 83; RESP 16; TEMP 36.6; O2SAT 93
[2021-11-13] MEDS: Mirtazapine 15 MG Tablet 45 MG PO (20:24)
[2021-11-13] MEDS: Atorvastatin Calcium 10 MG Tablet PO (20:26)
[2021-11-13] MEDS: Imipramine HCl 25 MG Tablet PO (20:26)
[2021-11-13] MEDS: Donepezil HCl 10 MG Tablet PO (20:26)
[2021-11-14] MEDS: amLODIPine 5 MG Tablet PO (05:15)
[2021-11-14] MEDS: Polyethylene Glycol 3350 17 GM PACKET PO (05:15)
[2021-11-14] MEDS: Losartan Potassium 100 MG Tablet PO (05:15)
[2021-11-14] MEDS: Acetaminophen 500 MG Tablet 1000 MG PO ×3 (05:15→20:22)
[2021-11-14 05:16] VITALS: BP 147/71; PULSE 85
[2021-11-14] MEDS: Levothyroxine 25 MCG TABLET PO (05:16)
[2021-11-14] MEDS: Senna/Docusate Sodium 1 Tablet 2 TABLET PO ×2 (05:16→18:09)
[2021-11-14] MEDS: Metoprolol(XL)Succ 25 MG Tablet PO (05:16)
[2021-11-14] MEDS: APIXABAN 2.5 MG TABLET PO ×2 (05:17→18:10)
[2021-11-14] MEDS: Cholecalciferol (VIT D3) 25 MCG TABLET (1,000 UNITS) PO (05:17)
[2021-11-14] MEDS: Menthol/Lanolin/Calamine/Znox 113 GM Tube 1 APPLIC TOPICAL ×2 (05:23→18:09)
[2021-11-14] MEDS: Iron Polysaccharide Complex 150 MG CAPSULE PO (07:54)
[2021-11-14] MEDS: Potassium Chloride Oral Tablet 20 MEQ PO (07:54)
[2021-11-14 16:00] VITALS: BP 134/69; PULSE 88; RESP 16; TEMP 36.8; O2SAT 98
[2021-11-14] MEDS: Mirtazapine 15 MG Tablet 45 MG PO (20:21)
[2021-11-14] MEDS: Atorvastatin Calcium 10 MG Tablet PO (20:22)
[2021-11-14] MEDS: Imipramine HCl 25 MG Tablet PO (20:22)
[2021-11-14] MEDS: Donepezil HCl 10 MG Tablet PO (20:23)
[2021-11-15 07:36] VITALS: BP 141/72; PULSE 90
[2021-11-15] MEDS: APIXABAN 2.5 MG TABLET PO ×2 (07:36→17:39)
[2021-11-15] MEDS: Levothyroxine 25 MCG TABLET PO (07:36)
[2021-11-15] MEDS: Metoprolol(XL)Succ 25 MG Tablet PO (07:36)
[2021-11-15] MEDS: Senna/Docusate Sodium 1 Tablet 2 TABLET PO (07:36)
[2021-11-15] MEDS: Polyethylene Glycol 3350 17 GM PACKET PO (07:37)
[2021-11-15] MEDS: amLODIPine 5 MG Tablet PO (07:37)
[2021-11-15] MEDS: Losartan Potassium 100 MG Tablet PO (07:37)
[2021-11-15] MEDS: Cholecalciferol (VIT D3) 25 MCG TABLET (1,000 UNITS) PO (07:37)
[2021-11-15] MEDS: Acetaminophen 500 MG Tablet 1000 MG PO ×3 (07:37→20:25)
[2021-11-15] MEDS: Menthol/Lanolin/Calamine/Znox 113 GM Tube 1 APPLIC TOPICAL ×2 (07:40→17:39)
--- NOTE | 2021-11-15 08:28 | NURSING ---
Denies any c/o left leg this am w/ med pass.
[2021-11-15] MEDS: Potassium Chloride Oral Tablet 20 MEQ PO (08:55)
[2021-11-15] MEDS: Iron Polysaccharide Complex 150 MG CAPSULE PO (08:55)
[2021-11-15 11:52] VITALS: PULSE 105; RESP 18; O2SAT 96
[2021-11-15 14:12] VITALS: BP 97/64; PULSE 92; RESP 16; TEMP 36.6; O2SAT 98
[2021-11-15] MEDS: Atorvastatin Calcium 10 MG Tablet PO (20:24)
[2021-11-15] MEDS: Mirtazapine 15 MG Tablet 45 MG PO (20:24)
[2021-11-15] MEDS: Donepezil HCl 10 MG Tablet PO (20:24)
[2021-11-15] MEDS: Imipramine HCl 25 MG Tablet PO (20:25)
[2021-11-16] MEDS: Acetaminophen 500 MG Tablet 1000 MG PO (06:24)
[2021-11-16] MEDS: Menthol/Lanolin/Calamine/Znox 113 GM Tube 1 APPLIC TOPICAL (06:24)
[2021-11-16 06:25] VITALS: BP 164/79; PULSE 87
[2021-11-16] MEDS: Cholecalciferol (VIT D3) 25 MCG TABLET (1,000 UNITS) PO (06:25)
[2021-11-16] MEDS: Levothyroxine 25 MCG TABLET PO (06:25)
[2021-11-16] MEDS: Metoprolol(XL)Succ 25 MG Tablet PO (06:25)
[2021-11-16] MEDS: amLODIPine 5 MG Tablet PO (06:25)
[2021-11-16] MEDS: Losartan Potassium 100 MG Tablet PO (06:25)
[2021-11-16] MEDS: APIXABAN 2.5 MG TABLET PO (06:25)
[2021-11-16] MEDS: Potassium Chloride Oral Tablet 20 MEQ PO (08:19)
[2021-11-16] MEDS: Iron Polysaccharide Complex 150 MG CAPSULE PO (08:19)
[2021-11-16 13:00] VITALS: BP 113/53; PULSE 85; RESP 18; TEMP 36.1; O2SAT 97
--- NOTE | 2021-11-16 13:38 | NURSING ---
Report called Lisa at [facility].
== END 2021-11-16 13:30 | disposition home health service (06) | DRG 559 ==
PROVIDERS: Admitting Provider Family Medicine Geriatric Medicine; PCP Family Medicine; Visit Provider Family Medicine Geriatric Medicine
DX: S72.002D Fracture of unspecified part of neck of left femur, subsequent encounter for closed fracture with routine healing (principal); U07.1 COVID-19; N39.0 Urinary tract infection, site not specified; G30.9 Alzheimer's disease, unspecified; D50.9 Iron deficiency anemia, unspecified; E03.9 Hypothyroidism, unspecified; B35.4 Tinea corporis; F02.80 Dementia in other diseases classified elsewhere, unspecified severity, without behavioral disturbance, psychotic disturbance, mood disturbance, and anxiety; I48.0 Paroxysmal atrial fibrillation; E55.9 Vitamin D deficiency, unspecified; I10 Essential (primary) hypertension; E78.5 Hyperlipidemia, unspecified; W19.XXXD Unspecified fall, subsequent encounter; Z79.01 Long term (current) use of anticoagulants; Z79.899 Other long term (current) drug therapy; Z79.890 Hormone replacement therapy; F32.A Depression, unspecified; Z96.642 Presence of left artificial hip joint
CPT/HCPCS: 0064A; 36415; 36569; 71045; 73502; 80048; 85025; 87426; 92507; 92523; 97110; 97116; 97162; 97166; 97530; 97535; J7050; A4216; J7799; Q0244

== ENCOUNTER 2021-10-29 23:54 | Outpatient (CLI) | payer MEDICARE, OTHER, SELFPAY ==
--- NOTE | 2021-10-30 00:10 | CT_ITS ---
STUDY: CT BRAIN WITHOUT CONTRAST REASON FOR EXAM: Female, 86 years old. S/P FALL RADIATION DOSAGE (If Supplied By Facility): CTDIvol = ( 44.99 ) mGy, DLP = ( 812.98 ) mGycm TECHNIQUE: Transaxial CT imaging of the brain was performed without administration of intravenous contrast material. Individualized dose optimization techniques were used for this CT. COMPARISON: No relevant priors. FINDINGS: Mild soft tissue swelling overlying the anterior left frontal bone. Normal calvarium. There is mild to moderate cerebral atrophy with widening of the extra-axial spaces and ventricular dilatation. There are areas of decreased attenuation within the white matter tracts of the supratentorial brain, consistent with microvascular disease changes. Normal basal ganglia and thalami. Normal brainstem. Normal cerebellum. There is no intracranial hemorrhage. There are no findings of an acute ischemic infarction. Normal visualized paranasal sinuses. CT/Brain/Head without Contrast IMPRESSION: Chronic changes as described. No acute intracranial hemorrhage or space-occupying lesion. Left anterior frontal scalp swelling as described. Electronically Signed: Ivonne Gaytan MD at 1:11 EST ,
== END 2021-10-29 23:59 | disposition short-term general hospital (02) ==
LOC: CT 23:55
PROVIDERS: PCP Family Medicine; Visit Provider Family Medicine Geriatric Medicine
DX: S09.90XA Unspecified injury of head, initial encounter (principal)
CPT/HCPCS: 70450